=== PATIENT | male | born 1950 | race Caucasian/White ===

== ENCOUNTER 2018-05-10 11:27 | Outpatient (REF) | payer OTHER, SELFPAY ==
[2018-05-10 12:53] LABS: ALT 25 U/L (12-78); AST 20 U/L (15-37); Albumin 3.7 g/dL (3.4-5.0); Alkaline Phosphatase 96 U/L (46-116); Anion Gap 5.7 mmol/L (3-11); BUN 16 mg/dL (7-18); CO2 30.3 mmol/L (21.0-32.0); CREATININE 1.22 mg/dL (0.70-1.30); Calcium 8.8 mg/dL (8.5-10.1); Chloride 101 mmol/L (98-107); Cholesterol 164 mg/dL (50-200); Estimated GFR 59.62 (mL/min/1.73m2); Glucose 103 mg/dL (70-100); HDL Cholesterol 55 mg/dL (40-60); LDL CHOLESTEROL 94 mg/dL (<100); Potassium 4.2 mmol/L (3.5-5.1); Sodium 137 mmol/L (136-145); Total Protein 7.5 g/dL (6.4-8.2); Triglyceride 136 mg/dL (30-150)
== END 2018-05-10 11:47 ==
LOC: NCHCN 11:27
PROVIDERS: PCP Family Medicine; Visit Provider Family Medicine
DX: R78.0 Finding of alcohol in blood (principal); I10 Essential (primary) hypertension
CPT/HCPCS: 80053; 80061; 83721

== ENCOUNTER → 2018-06-01 13:03 | Outpatient (BNVA) | payer OTHER, SELFPAY | PROVIDERS: Visit Provider Psychiatry & Neurology Neurology | DX: G43.009 Migraine without aura, not intractable, without status migrainosus (principal); R41.3 Other amnesia; R51 Headache; J44.9 Chronic obstructive pulmonary disease, unspecified; Z87.891 Personal history of nicotine dependence; I10 Essential (primary) hypertension | CPT/HCPCS: 99213 ==

== ENCOUNTER 2018-06-29 16:52 | Outpatient (REF) | payer OTHER, SELFPAY | END 2018-06-29 17:12 | LOC: NCHCN 16:52 | PROVIDERS: PCP Family Medicine; Visit Provider Nurse Practitioner | DX: L02.511 Cutaneous abscess of right hand (principal) | CPT/HCPCS: 87077; 87070; 87186; 87205 ==

== ENCOUNTER 2018-11-20 10:46 | Outpatient (REF) | payer OTHER, SELFPAY ==
[2018-11-20 14:05] LABS: HCT 46.3 % (40.0-50.0); HGB 14.9 g/dL (13.5-17.5); Mean Corp. HGB Concentration 32.2 g/dL (32.0-36.0); Mean Corpuscular Hemoglobin 28.4 pg (27.0-33.0); Mean Corpuscular Volume 88.4 fL (80-95); Mean Platelet Volume 10.4 fL (8.0-11.0); Platelet Count 229 x1000/uL (130-400); RBC 5.24 m/cumm (4.50-6.00); RBC Distribution Width 14.1 % (11.8-14.1); White Blood Cell Count 6.32 k/cumm (4.4-10.8)
[2018-11-20 15:01] LABS: ALT 38 U/L (12-78); AST 29 U/L (15-37); Albumin 3.8 g/dL (3.4-5.0); Alkaline Phosphatase 87 U/L (46-116); Anion Gap 8.6 mmol/L (3-11); BUN 15 mg/dL (7-18); Bilirubin, Total 0.7 mg/dL (0.2-1.0); CO2 28.4 mmol/L (21.0-32.0); CREATININE 1.36 mg/dL (0.70-1.30); Chloride 101 mmol/L (98-107); Estimated GFR 52.43 (mL/min/1.73m2); Glucose 103 mg/dL (70-100); NT-proBNP 17 pg/mL; Potassium 4.4 mmol/L (3.5-5.1); Sodium 138 mmol/L (136-145); Total Protein 7.7 g/dL (6.4-8.2)
[2018-11-20 15:22] LABS: Cholesterol 171 mg/dL (50-200); HDL Cholesterol 56 mg/dL (40-60); LDL CHOLESTEROL 96 mg/dL (<100); Triglyceride 107 mg/dL (30-150)
== END 2018-11-20 11:06 ==
LOC: NCHCN 10:46
PROVIDERS: PCP Family Medicine; Visit Provider Family Medicine
DX: I35.0 Nonrheumatic aortic (valve) stenosis (principal); E78.00 Pure hypercholesterolemia, unspecified; I10 Essential (primary) hypertension
CPT/HCPCS: 80053; 80061; 83721; 84153; 85027; 83880

== ENCOUNTER 2018-11-30 08:34 | Outpatient (CLI) | payer OTHER, SELFPAY ==
--- NOTE | 2018-11-30 15:00 | DI.US_ITS ---
SYMPTOMS/DIAGNOSIS: AORTIC STENOSIS, I35.0, CAROTID BRUIT, R09.89 CAROTID ULTRASOUND: Routine examination was performed. On the right there is mild calcific plaque seen in the carotid bulb and mild intimal thickening seen in the mid and distal common carotid artery. No hemodynamically significant velocity elevations are present. The right vertebral artery is antegrade. On the left there is mild calcific plaque seen in the left carotid bulb and mild intimal thickening in the common carotid artery distally. There are no hemodynamically significant velocity elevations seen on the left. The left vertebral artery is antegrade. IMPRESSION: No evidence of hemodynamically significant cervical carotid artery stenosis.
== END 2018-11-30 08:54 ==
PROVIDERS: PCP Family Medicine; Visit Provider Family Medicine
DX: I35.0 Nonrheumatic aortic (valve) stenosis (principal); R09.89 Other specified symptoms and signs involving the circulatory and respiratory systems
CPT/HCPCS: 93880

== ENCOUNTER 2019-02-14 00:13 | Outpatient (CLI) | payer OTHER, SELFPAY ==
--- NOTE | 2019-02-14 10:30 | MERGE_ITS ---
*[facility]* *[facility]* [address] [place] [address] Date of study: 02/14/2019 Transthoracic Echocardiography M-mode, complete 2D, complete spectral Doppler, and color Doppler *STUDY CONCLUSIONS* Impressions: Severe aortic stenosis. Summary: 1. Left ventricle: The cavity size was normal. There was mild hypertrophy of the septum. Systolic function was normal. The estimated ejection fraction was 55-60%. Wall motion was normal; there were no regional wall motion abnormalities. 2. Aortic valve: Valve mobility was severely restricted. There was severe stenosis. There was trivial regurgitation. Peak velocity (S): 3.9m/sec. Mean gradient (S): 39.3mm Hg. Valve area (VTI): 0.9cm^2. 3. Right ventricle: The cavity size was normal. Wall thickness was normal. Systolic function was normal. Recommendations: A cardiac surgeon should be consulted for aortic valve replacement if symptomatic. *PATIENT PRESENTATION* Height: 182.9cm ((72in) ) S/D Pressure: 130 / 83 Weight: 122.5kg ((269.4lb) ) BSA: 2.54m^2 Test start time: 10:40 AM. Test stop time: 11:30 AM. 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 This study was interpreted by [facility]. Pertinent images and digital data are archived for permanent storage and are available for subsequent review. No prior study was available for comparison. Study status: Routine. Transthoracic echocardiography. M-mode, complete 2D, complete spectral Doppler, and color Doppler. A Transthoracic Echocardiogram was performed. Scanning was performed from the parasternal, apical, subcostal, and suprasternal notch acoustic windows. Images were obtained using an [id number] cardiac ultrasound machine. Image quality was adequate. Study completion: The patient tolerated the procedure well. There were no complications. History: PMH: Aortic stenosis i34.0. *CARDIAC ANATOMY* Left ventricle: The cavity size was normal. There was mild hypertrophy of the septum. Systolic function was normal. The estimated ejection fraction was 55-60%. Wall motion was normal; there were no regional wall motion abnormalities. Diastolic parameters were normal for age. Aortic valve: Probably trileaflet; moderately calcified leaflets. Valve mobility was severely restricted. Doppler: There was severe stenosis. There was trivial regurgitation. VTI ratio of LVOT to aortic valve: 0.24. Valve area (VTI): 0.9cm^2. Indexed valve area (VTI): 0.3cm^2/m^2. Peak velocity ratio of LVOT to aortic valve: 0.22. Valve area (Vmax): 0.8cm^2. Indexed valve area (Vmax): 0.3cm^2/m^2. Mean velocity ratio of LVOT to aortic valve: 0.22. Valve area (Vmean): 0.8cm^2. Indexed valve area (Vmean): 0.3cm^2/m^2. Mean gradient (S): 39.3mm Hg. Peak gradient (S): 62mm Hg. Aorta: Aortic root: The aortic root was normal in size. Ascending aorta: The ascending aorta was normal in size. Mitral valve: Structurally normal valve. Mobility was not restricted. Doppler: Transvalvular velocity was within the normal range. There was no evidence for stenosis. There was no significant regurgitation. Valve area by pressure half-time: 4.1cm^2. Indexed valve area by pressure half-time: 1.6cm^2/m^2. Left atrium: The atrium was normal in size. Right ventricle: The cavity size was normal. Wall thickness was normal. Systolic function was normal. Pulmonic valve: Doppler: Transvalvular velocity was within the normal range. There was no evidence for stenosis. There was no significant regurgitation. Tricuspid valve: Structurally normal valve. Doppler: Transvalvular velocity was within the normal range. There was no evidence for stenosis. There was mild regurgitation. Pulmonary artery: Pulmonary systolic pressure was within the normal range, in the range of 25mm Hg to 30mm Hg. Right atrium: The atrium was normal in size. Pericardium: There was no pericardial effusion. Systemic veins: Inferior vena cava: Not well visualized. The vessel was patent and normal in size. The respirophasic diameter changes were in the normal range (greater than or equal to 50%). Baseline ECG: Normal sinus rhythm. Measurements Left ventricle Value Reference LV ID, ED, PLAX 4.5 cm 3.5 - 6.0 LV ID, ES, PLAX 2.9 cm 2.1 - 4.0 LV PW thickness, ED, PLAX 1.1 cm LV end-diastolic volume, 1-p A2C 76 ml LV ejection fraction, 1-p A2C 55 % LV end-diastolic volume, 1-p A4C 93 ml LV ejection fraction, 1-p A4C 55 % LV e', lateral 0.086 m/sec LV E/e', lateral 8 LV e', medial 0.079 m/sec LV E/e', medial 9 LV e', average 0.082 m/sec LV E/e', average 8 Ventricular septum Value Reference IVS thickness, ED, PLAX 1.3 cm LVOT Value Reference LVOT ID, A-P 2.1 cm LVOT area 3.6 cm^2 LVOT peak velocity, S 0.88 m/sec LVOT mean velocity, S 0.66 m/sec LVOT VTI, S 20.2 cm LVOT peak gradient, S 3.1 mm Hg LVOT mean gradient, S 1.9 mm Hg Stroke volume (SV), LVOT DP 73 ml Stroke index (SV/bsa), LVOT DP 29 ml/m^2 Aortic valve Value Reference Aortic valve peak velocity, S 3.9 m/sec Aortic valve mean velocity, S 2.97 m/sec Aortic valve VTI, S 84.0 cm Aortic mean gradient, S 39.3 mm Hg Aortic peak gradient, S 62 mm Hg VTI ratio, LVOT/AV 0.24 Aortic valve area, VTI 0.9 cm^2 Velocity ratio, peak, LVOT/AV 0.22 Aortic valve area, peak velocity 0.8 cm^2 Velocity ratio, mean, LVOT/AV 0.22 Aortic valve area, mean velocity 0.8 cm^2 Aortic valve area/bsa, mean velocity 0.3 cm^2/m^2 Aorta Value Reference Aortic root ID, ED 3.6 cm Ascending aorta ID, A-P, S 3.4 cm Left atrium Value Reference LA ID, A-P, ES 3.5 cm LA ID/bsa, A-P 1.4 cm/m^2 <=2.2 LA area, ES, A4C 19.2 cm^2 8.8 - 23.4 LA volume/bsa, ES, 1-p A4C 27 ml/m^2 LA/aortic root ratio 0.98 Mitral valve Value Reference Mitral E-wave peak velocity 0.68 m/sec Mitral A-wave peak velocity 0.69 m/sec Mitral deceleration time 184 ms 150 - 230 Mitral pressure half-time 53 ms Mitral E/A ratio, peak 0.98 Mitral valve area, PHT, DP 4.1 cm^2 Tricuspid valve Value Reference Tricuspid regurg peak velocity 2.4 m/sec Tricuspid peak RV-RA gradient 23.6 mm Hg Right atrium Value Reference RA area, ES, A4C 18 cm^2 8.3 - 19.5 Legend: (L) and (H) priscilla values outside specified reference range. I have personally reviewed the images and have reviewed and edited the reported findings. Electronically signed by Malcolm Adorno 02/14/2019 12:37
== END 2019-02-14 00:33 ==
PROVIDERS: PCP Family Medicine; Visit Provider Family Medicine
DX: I35.0 Nonrheumatic aortic (valve) stenosis (principal)
CPT/HCPCS: 93306

== ENCOUNTER → 2019-04-04 12:33 | Outpatient (BNVA) | payer OTHER, SELFPAY | PROVIDERS: PCP Family Medicine; Visit Provider Student in an Organized Health Care Education/Training Program | DX: I35.0 Nonrheumatic aortic (valve) stenosis (principal); E78.00 Pure hypercholesterolemia, unspecified; G30.9 Alzheimer's disease, unspecified; F02.80 Dementia in other diseases classified elsewhere, unspecified severity, without behavioral disturbance, psychotic disturbance, mood disturbance, and anxiety; J44.9 Chronic obstructive pulmonary disease, unspecified; Z87.891 Personal history of nicotine dependence | CPT/HCPCS: 99205; 99215 ==

== ENCOUNTER 2019-05-31 11:18 | Outpatient (REF) | payer OTHER, SELFPAY ==
[2019-05-31 18:33] LABS: Hemoglobin A1C 6.4 % (4.5-6.2)
== END 2019-05-31 11:38 ==
LOC: NCHCN 11:18
PROVIDERS: PCP Family Medicine; Visit Provider Family Medicine
DX: R73.9 Hyperglycemia, unspecified (principal)
CPT/HCPCS: 83036

== ENCOUNTER 2019-09-28 13:08 | Outpatient (REF) | payer OTHER, SELFPAY ==
[2019-09-28 20:30] LABS: INR 1.6 (0.9-1.1); Prothrombin Time 16.4 sec (9.3-11.0)
[2019-09-28 20:41] LABS: Anion Gap 9.9 mmol/L (3-11); BUN 20 mg/dL (7-18); CO2 30.1 mmol/L (21.0-32.0); CREATININE 1.16 mg/dL (0.70-1.30); Calcium 8.8 mg/dL (8.5-10.1); Chloride 99 mmol/L (98-107); Glucose 173 mg/dL (74-106); NT-proBNP 245 pg/mL (<300); Potassium 3.7 mmol/L (3.5-5.1); Sodium 139 mmol/L (136-145)
== END 2019-09-28 13:28 ==
LOC: NCHCN 13:08
PROVIDERS: PCP Family Medicine; Visit Provider Family Medicine
DX: I50.9 Heart failure, unspecified (principal)
CPT/HCPCS: 80048; 83880; 85610

== ENCOUNTER 2019-10-24 15:31 | Inpatient (IN) | payer OTHER, MEDICAID, SELFPAY ==
[2019-10-24] VITALS (21 sets, daily range): BP systolic 89–162; BP diastolic 40–115; PULSE 67–80; RESP 13–30; TEMP 36.5–37; O2SAT 90–95
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
--- NOTE | 2019-10-24 15:40 | DI.CT_ITS ---
EXAM: CT HEAD WO CLINICAL HISTORY: facial droop. TECHNIQUE: Imaging Protocol: Axial computed tomography images with coronal and sagittal reformatted images were created and reviewed COMPARISON: CT HEAD/BRAIN W/O CONTRAST from 03/13/2017 FINDINGS: Ventricles and Extra axial spaces: Normal in size and morphology for the patient's age. Hemorrhage: None. Cerebral parenchyma: There is encephalomalacia in the right occipital lobe. There are areas of decre ased attenuation in the white matter consistent with small vessel ischemic disease. Midline shift: None. Brainstem/Cerebellum: Normal. Calvarium: Normal. Visualized Paranasal sinuses/Mastoids: Small fluid level in the left sphenoid sinus. The remaining v isualized paranasal sinuses are clear. IMPRESSION: No acute intracranial process. The findings were discussed with the emergency department on the date of the examination. DATA REPOSITORY: All CT scans at this facility are submitted to the National Radiology Data Registry (NRDR) Dose Index Registry (DIR) with the [employer] (ACR). RADIATION OPTIMIZATION: All CT scans at this facility use at least one of these dose optimization te chniques: automated exposure control; mA and/or kV adjustment per patient size (includes targeted exa ms where dose is matched to clinical indication); or iterative reconstruction.
[2019-10-24 16:05] LABS: Abs Immature Grans 0.01 k/cumm (0.0-0.09); Absolute Basophil Count 0.04 k/cumm (0.0-0.2); Absolute Eosinophil Count 0.21 k/cumm (0.0-0.7); Absolute Lymphocyte Count 1.07 k/cumm (1.2-3.4); Absolute Monocyte Count 0.57 k/cumm (0.11-0.7); Absolute Neutrophil Count 9.95 k/cumm (1.2-6.7); Basophils % 0.3; Eosinophils % 1.8; HCT 42.5 % (40.0-50.0); HGB 13.1 g/dL (13.5-17.5); Immature Grans % 0.1 %; Mean Corp. HGB Concentration 30.8 g/dL (32.0-36.0); Mean Platelet Volume 9.3 fL (8.0-11.0); Monocytes % 4.8; Platelet Count 291 x1000/uL (130-400); RBC 5.25 m/cumm (4.50-6.00); RBC Distribution Width 16.6 % (11.8-14.1); White Blood Cell Count 11.85 k/cumm (4.4-10.8)
[2019-10-24 16:19] LABS: INR 2.6 (0.9-1.1); PTT Activated 33.3 sec (21.0-31.4); Prothrombin Time 25.2 sec (9.3-11.0)
[2019-10-24 16:21] LABS: ALT 26 U/L (16-63); AST 21 U/L (15-37); Albumin 3.5 g/dL (3.4-5.0); Alkaline Phosphatase 100 U/L (46-116); Anion Gap 7.1 mmol/L (3-11); BUN 15 mg/dL (7-18); Bilirubin, Total 0.6 mg/dL (0.2-1.0); CO2 31.9 mmol/L (21.0-32.0); CREATININE 1.25 mg/dL (0.70-1.30); Calcium 8.5 mg/dL (8.5-10.1); Chloride 99 mmol/L (98-107); Estimated GFR 57.61 (mL/min/1.73m2); Glucose 120 mg/dL (74-106); Magnesium 2.1 mg/dL (1.8-2.4); Potassium 4.1 mmol/L (3.5-5.1); Sodium 138 mmol/L (136-145); Total Protein 7.9 g/dL (6.4-8.2)
[2019-10-24 16:22] LABS: Troponin I < 0.05 ng/Ml (<0.06)
--- NOTE | 2019-10-24 17:52 | CMPROGNOTE_ITS ---
- If Service Date Differs Date of service: 10/24/19 Time of Service: 17:52 Care Management Progress Note CM meets with Francois and his at the request of ED provider. reports Francois has bad knees and is in need of knee surgeries. Due to this, he has increasing difficulty walking. Francois ambulates with a walker at home but over the past month, he has been unsteady on his feet and has had frequent falls. Francois was at a rehab in [place] for a period of time after a valve replacement s urgery in August. Francois expresses a desire to return to the [facility] and states his primary care provider's office is already working on getting him readmitted. CM contacts the [facility], patient's PCP's office, and speaks with REJI Caldwell. Paulette confirms that Yajaira, their assurance services manager health care, is working on getting Francois a bed at the facility, but Yajaira is gone for the day and Paulette is unsure where things stand. CM will follow-up with Yajaira in the morning.
[2019-10-24 19:31] LABS: Bilirubin Negative (Negative); Blood Trace-intact (Negative); Clarity Clear (Clear); Glucose Negative (Negative); Ketones Negative (Negative); Leukocyte Esterase Negative (Negative); Nitrite Negative (Negative); Specific Gravity 1.015 (1.005-1.025); Urobilinogen 0.2 EU/dL (Up TO 0.2)
[2019-10-24 19:48] LABS: Bacteria Negative HPF (Negative); Casts Negative LPF (Negative); Crystals Negative HPF (Negative); Epithelial Cells Few HPF (Negative); Mucus Negative (Negative); Other Cells Negative (Negative); WBC 0-2 HPF (0-5)
[2019-10-24 19:49] LABS: C & S Indicated? No
[2019-10-24 20:02] LABS: Troponin I < 0.05 ng/Ml (<0.06)
[2019-10-24] MEDS: Atorvastatin 40 MG TAB PO (21:03)
[2019-10-24] MEDS: Amiodarone 200 MG TAB PO (21:03)
[2019-10-24] MEDS: Amitriptyline 50 MG TAB 100 MG PO (21:13)
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
[2019-10-24] MEDS: Acetaminophen 325 MG TAB PO (23:33)
[2019-10-24 23:56] LABS: Troponin I < 0.05 ng/Ml (<0.06)
[2019-10-25 03:00] VITALS: BP 144/76; PULSE 72; RESP 18; TEMP 36.5; O2SAT 93
[2019-10-25 06:28] LABS: Abs Immature Grans 0.02 k/cumm (0.0-0.09); Absolute Basophil Count 0.05 k/cumm (0.0-0.2); Absolute Eosinophil Count 0.41 k/cumm (0.0-0.7); Absolute Lymphocyte Count 1.65 k/cumm (1.2-3.4); Absolute Monocyte Count 0.65 k/cumm (0.11-0.7); Basophils % 0.7; Eosinophils % 5.5; HCT 40.7 % (40.0-50.0); HGB 12.7 g/dL (13.5-17.5); Immature Grans % 0.3 %; Mean Corp. HGB Concentration 31.2 g/dL (32.0-36.0); Mean Corpuscular Hemoglobin 25.2 pg (27.0-33.0); Mean Corpuscular Volume 80.9 fL (80-95); Mean Platelet Volume 9.1 fL (8.0-11.0); Monocytes % 8.7; Neutrophils % 62.8; Platelet Count 330 x1000/uL (130-400); RBC 5.03 m/cumm (4.50-6.00); RBC Distribution Width 16.9 % (11.8-14.1); White Blood Cell Count 7.51 k/cumm (4.4-10.8)
[2019-10-25 06:29] LABS: Absolute Neutrophil Count 4.72 k/cumm (1.2-6.7)
[2019-10-25 06:33] LABS: Anion Gap 8.5 mmol/L (3-11); BUN 13 mg/dL (7-18); CO2 29.5 mmol/L (21.0-32.0); CREATININE 1.06 mg/dL (0.70-1.30); Calcium 8.6 mg/dL (8.5-10.1); Chloride 102 mmol/L (98-107); Glucose 98 mg/dL (74-106); Potassium 3.7 mmol/L (3.5-5.1); Prothrombin Time 24.1 sec (9.3-11.0); Sodium 140 mmol/L (136-145)
[2019-10-25 06:35] LABS: INR 2.4 (0.9-1.1)
[2019-10-25 06:46] LABS: Calculated LDL 69 mg/dL (<100); Cholesterol 142 mg/dL (<200); HDL Cholesterol 61 mg/dL (40-60); Magnesium 2.1 mg/dL (1.8-2.4); TSH (W/Ref FT4) 2.54 uIU/mL (0.36-3.74); Triglyceride 63 mg/dL (<150)
[2019-10-25 07:01] LABS: Hemoglobin A1C 6.6 % (3.8-5.6)
[2019-10-25 07:56] VITALS: BP 143/76; PULSE 71; RESP 20; TEMP 36.6; O2SAT 95
[2019-10-25] MEDS: Metoprolol CR 100 MG TABCR PO ×2 (08:14→20:18)
[2019-10-25] MEDS: Aspirin 81 MG CHEW PO (08:14)
[2019-10-25] MEDS: amLODIPine 10 MG TAB PO (08:14)
[2019-10-25] MEDS: Tamsulosin 0.4 MG CAPCR PO (08:14)
[2019-10-25] MEDS: Furosemide 20 MG TAB PO (08:15)
[2019-10-25] MEDS: Sertraline 50 MG TAB PO (08:15)
[2019-10-25] MEDS: Amiodarone 200 MG TAB PO ×2 (08:15→20:18)
[2019-10-25] MEDS: Acetaminophen 325 MG TAB PO ×3 (08:15→18:13)
[2019-10-25] MEDS: Potassium Chloride 10 MEQ CAPCR PO (08:16)
[2019-10-25] MEDS: Donepezil 5 MG TAB 10 MG PO (08:16)
[2019-10-25] MEDS: Normal Saline Flush 10 ML SYR IVP (08:19)
[2019-10-25] MEDS: Budesonide/Formoterol 80/4.5 6.9 GM 60 PUFF INH IH ×2 (09:16→20:25)
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
--- NOTE | 2019-10-25 10:42 | W.PM.PROGNOT ---
Date of Service Date of service: 10/25/19 Time of Service: 10:42 Assessment and Plan Assessment and plan (1) Ambulatory dysfunction: Status: Acute Assessment and plan: Consult PT/OT and consult neurology. To ensure that the L facial droop seen in ER is not presentation of a new CVA, will obtain a non-contrast MRI of the brain. Per , at the time of my exam, the patient is not having any new neurological deficits. However, patient's difficulty walking does present a big concern for bleeding as he is on therapeutic anticoagulation. (2) Falls frequently: Status: Acute Assessment and plan: PT/OT on board; current plan is for SNF placement at the time of discharge. (3) Bilateral pulmonary embolism: Status: Acute Assessment and plan: Continue anticoagulation with coumadin. INR is therapeutic. (4) History of CVA (cerebrovascular accident): Status: Acute Assessment and plan: With residual L hemianopsia, LUE/LLE weakness and R-sided facial droop. Visual difficulty and LUE/LLE weakness are likely contributing to the falls, presenting a higher risk for bleeding given the fact bandar the patient is on therapeutic anticoagulation. The CVA was felt to be cardioembolic post CT surgery. As above - obtaining repeat MRI and neurology consult. Continue anticoagulation with coumadin. Plan for subacute rehab on discharge. (5) Hypertension: Status: Chronic Assessment and plan: Continue amlodipine and furosemide for now. Low dose jocelyn-i might be considered especially now with a new diagnosis of diabetes. (6) Paroxysmal atrial fibrillation: Status: Acute Assessment and plan: valvular Afib post CABG/bioprosthetic AVR. Continue anticoagulation. Rate is controlled. (7) Neck pain: Status: Acute Assessment and plan: Obtain xr C-spine; tx with lidocaine patch, cold compresses, prn tylenol for now. PT consulted. (8) Newly diagnosed diabetes: Status: Acute Assessment and plan: A1C of 6.6. Consult diabetes education. On carb consistent diet - monitor accuchecks and offer AC/HS corrective insulin. On discharge, might benefit from addition of metformin. (9) DVT prophylaxis: Status: Acute Assessment and plan: On therapeutic coumadin (10) Discharge planning issues: Status: Acute Assessment and plan: Full code. Palliative care consulted Subjective Subjective Interval history since last seen: Mr Davis complains of neck pain since the fall. He also had a headache this morning - he says he has had it since 1979. Denies dizziness, chest pain, shortness of breath, nausea, numbness/tingling (except in the right thumb which is chronic). Per patient's , his face looks to be at his baseline since the stroke in August. Per , the patient's left-sided weakness is also his baseline since then. Exam Narrative Exam Narrative: General: Very pleasant middle-aged male, A&Ox3, sitting comfortably in a chair with an inclination to the right, LUE/LLE strength 4/5; RUE/RLE strength 5/5 HEENT: EOMI, MMM Heart: RRR Lungs: CTAB Abdomen: sot, nontender, nondistended Extremities: RLE is slightly larger than left; no c/c Objective Objective Clinical Data: Abnormal lab results 10/24/19 10/24/19 10/24/19 Range/Units 15:51 15:51 15:51 WBC 11.85 H (4.4-10.8) k/cumm Hgb 13.1 L (13.5-17.5) g/dL MCH 25.0 L (27.0-33.0) pg MCHC 30.8 L (32.0-36.0) g/dL RDW 16.6 H (11.8-14.1) % Absolute Neutrophils 9.95 H (1.2-6.7) k/cumm Absolute Lymphocytes 1.07 L (1.2-3.4) k/cumm PT 25.2 H D (9.3-11.0) sec INR 2.6 H D (0.9-1.1) APTT 33.3 H (21.0-31.4) sec Glucose 120 H (74-106) mg/dL Hemoglobin A1c (3.8-5.6) % Urine Blood (Negative) Urine RBC (0-2) HPF 10/24/19 10/25/19 10/25/19 Range/Units 19:08 06:12 06:12 WBC (4.4-10.8) k/cumm Hgb 12.7 L (13.5-17.5) g/dL MCH 25.2 L (27.0-33.0) pg MCHC 31.2 L (32.0-36.0) g/dL RDW 16.9 H (11.8-14.1) % Absolute Neutrophils (1.2-6.7) k/cumm Absolute Lymphocytes (1.2-3.4) k/cumm PT (9.3-11.0) sec INR (0.9-1.1) APTT (21.0-31.4) sec Glucose (74-106) mg/dL Hemoglobin A1c 6.6 H (3.8-5.6) % Urine Blood Trace-intact H (Negative) Urine RBC 5-10 H (0-2) HPF 10/25/19 Range/Units 06:12 WBC (4.4-10.8) k/cumm Hgb (13.5-17.5) g/dL MCH (27.0-33.0) pg MCHC (32.0-36.0) g/dL RDW (11.8-14.1) % Absolute Neutrophils (1.2-6.7) k/cumm Absolute Lymphocytes (1.2-3.4) k/cumm PT 24.1 H (9.3-11.0) sec INR 2.4 H (0.9-1.1) APTT (21.0-31.4) sec Glucose (74-106) mg/dL Hemoglobin A1c (3.8-5.6) % Urine Blood (Negative) Urine RBC (0-2) HPF Vital Signs Temperature 36.6 C 10/25/19 07:56 Temperature Source Tympanic 10/25/19 07:56 Pulse 71 10/25/19 07:56 Pulse Rhythm Regular 10/25/19 00:10 Pulse 80 10/24/19 17:20 Respiratory Rate 20 10/25/19 07:56 Respiratory Effort Non-Labored 10/25/19 00:10 Respiratory Depth Normal 10/25/19 00:10 Respiratory Pattern Normal 10/25/19 00:10 Blood Pressure 143/76 H 10/25/19 07:56 Blood Pressure Mean 98 10/24/19 17:01 Blood Pressure Position Supine 10/24/19 15:42 Pulse Oximetry 95 10/25/19 07:56 Oxygen Delivery Method Room Air 10/25/19 07:56 Oxygen Flow Rate 0 10/25/19 07:56 Pain Level 4 10/25/19 08:15 Intake & Output 10/24/19 10/24/19 10/25/19 11:59 23:59 11:59 Intake Total 240 / 240 480 / 480 Output Total 650 / 650 400 / 400 Balance -410 / -410 80 / 80 Weight 124.1 kg 117.5 kg Intake: Oral 240 / 240 480 / 480 Output: Urine 650 / 650 400 / 400 Other: Urine Color Pale Yellow Urine Appearance Clear Urine Odor Normal Normal Comment pt pad in bed dry at this time. Voiding Methods Urinal Urinal Laboratory Results WBC 7.51 k/cumm (4.4-10.8) D 10/25/19 06:12 RBC 5.03 m/cumm (4.50-6.00) 10/25/19 06:12 Hgb 12.7 g/dL (13.5-17.5) L 10/25/19 06:12 Hct 40.7 % (40.0-50.0) 10/25/19 06:12 MCV 80.9 fL (80-95) 10/25/19 06:12 MCH 25.2 pg (27.0-33.0) L 10/25/19 06:12 MCHC 31.2 g/dL (32.0-36.0) L 10/25/19 06:12 RDW 16.9 % (11.8-14.1) H 10/25/19 06:12 Plt Count 330 x1000/uL (130-400) 10/25/19 06:12 MPV 9.1 fL (8.0-11.0) 10/25/19 06:12 Immature Gran % 0.3 % 10/25/19 06:12 Neutrophils % 62.8 10/25/19 06:12 Lymphocytes % 22.0 10/25/19 06:12 Monocytes % 8.7 10/25/19 06:12 Eosinophils % 5.5 10/25/19 06:12 Basophils % 0.7 10/25/19 06:12 Absolute Neutrophils 4.72 k/cumm (1.2-6.7) 10/25/19 06:12 Absolute Lymphocytes 1.65 k/cumm (1.2-3.4) 10/25/19 06:12 Absolute Monocytes 0.65 k/cumm (0.11-0.7) 10/25/19 06:12 Absolute Eosinophils 0.41 k/cumm (0.0-0.7) 10/25/19 06:12 Absolute Basophils 0.05 k/cumm (0.0-0.2) 10/25/19 06:12 PT 24.1 sec (9.3-11.0) H 10/25/19 06:12 INR 2.4 (0.9-1.1) H 10/25/19 06:12 APTT 33.3 sec (21.0-31.4) H 10/24/19 15:51 Sodium 140 mmol/L (136-145) 10/25/19 06:12 Potassium 3.7 mmol/L (3.5-5.1) 10/25/19 06:12 Chloride 102 mmol/L (98-107) 10/25/19 06:12 Carbon Dioxide 29.5 mmol/L (21.0-32.0) 10/25/19 06:12 Anion Gap 8.5 mmol/L (3-11) 10/25/19 06:12 BUN 13 mg/dL (7-18) 10/25/19 06:12 Creatinine 1.06 mg/dL (0.70-1.30) 10/25/19 06:12 Estimated GFR/1.73 m2 >= 60.00 (mL/min/1.73m2) 10/25/19 06:12 Glucose 98 mg/dL (74-106) 10/25/19 06:12 Hemoglobin A1c 6.6 % (3.8-5.6) H 10/25/19 06:12 Calcium 8.6 mg/dL (8.5-10.1) 10/25/19 06:12 Magnesium 2.1 mg/dL (1.8-2.4) 10/25/19 06:12 Total Bilirubin 0.6 mg/dL (0.2-1.0) 10/24/19 15:51 AST 21 U/L (15-37) 10/24/19 15:51 ALT 26 U/L (16-63) 10/24/19 15:51 Alkaline Phosphatase 100 U/L (46-116) 10/24/19 15:51 Troponin I < 0.05 ng/Ml (<0.06) 10/24/19 23:30 Total Protein 7.9 g/dL (6.4-8.2) 10/24/19 15:51 Albumin 3.5 g/dL (3.4-5.0) 10/24/19 15:51 Triglycerides 63 mg/dL (<150) 10/25/19 06:12 Total Cholesterol 142 mg/dL (<200) 10/25/19 06:12 LDL Cholesterol, Calc 69 mg/dL (<100) 10/25/19 06:12 HDL Cholesterol 61 mg/dL (40-60) 10/25/19 06:12 TSH 2.54 uIU/mL (0.36-3.74) 10/25/19 06:12 Urine Color Yellow (Yellow) 10/24/19 19:08 Urine Clarity Clear (Clear) 10/24/19 19:08 Urine pH 7.0 (5-8) 10/24/19 19:08 Ur Specific [place] 1.015 (1.005-1.025) 10/24/19 19:08 Urine Protein Negative mg/dL (Negative) 10/24/19 19:08 Urine Ketones Negative mg/dL (Negative) 10/24/19 19:08 Urine Blood Trace-intact (Negative) H 10/24/19 19:08 Urine Nitrite Negative (Negative) 10/24/19 19:08 Urine Bilirubin Negative (Negative) 10/24/19 19:08 Urine Urobilinogen 0.2 EU/dL (Up TO 0.2) 10/24/19 19:08 Ur Leukocyte Esterase Negative (Negative) 10/24/19 19:08 Urine RBC 5-10 HPF (0-2) H 10/24/19 19:08 Urine WBC 0-2 HPF (0-5) 10/24/19 19:08 Ur Epithelial Cells Few HPF (Negative) 10/24/19 19:08 Urine Crystals Negative HPF (Negative) 10/24/19 19:08 Urine Bacteria Negative HPF (Negative) 10/24/19 19:08 Urine Casts Negative LPF (Negative) 10/24/19 19:08 Urine Mucus Negative (Negative) 10/24/19 19:08 Urine Other Negative (Negative) 10/24/19 19:08 Ur Culture Indicated? No 10/24/19 19:08 Urine Glucose Negative mg/dL (Negative) 10/24/19 19:08
--- NOTE | 2019-10-25 11:09 | DI.RAD_ITS ---
EXAM: XR CERVICAL SPINE COMP 4-5V CLINICAL HISTORY: neck pain TECHNIQUE: 2D digital imaging was performed. COMPARISON: No exams were available for comparison FINDINGS: BONES: No fracture or destructive lesion. Vertebral bodies are unremarkable. DISKS: There is moderate to severe narrowing of the C5-6 disc space which shows endplate osteophytes. There are severe facet joint degenerative changes, greater on the left side in the upper cervical r egion. The neural foramina are not optimally profiled however neural foraminal narrowing is suspecte d bilaterally, greater on the left secondary to facet encroachment. ALIGNMENT: Cervical spinal alignment is within normal limits. The odontoid and atlantoaxial articulat ions are normal. SOFT TISSUE: Normal. The lung apices are clear. Sternal wires are noted. IMPRESSION: Severe degenerative changes of the facet joints. Severe degenerative disc changes at C5-6. DATA REPOSITORY: RADIATION DOSE DELIVERED:
[2019-10-25 11:36] VITALS: BP 120/71; PULSE 72; RESP 22; TEMP 36.8; O2SAT 94
--- NOTE | 2019-10-25 12:22 | DI.MRI_ITS ---
EXAM: MR BRAIN WO CLINICAL HISTORY: question of recurrent CVA, weakness TECHNIQUE: Multiplanar multisequence MRI of the brain was performed. An accelerated protocol was ut ilized due to the patient's inability to hold still. CONTRAST MATERIAL: IV Contrast: None COMPARISON: CT HEAD WO from 10/24/2019 FINDINGS: The exam is limited by patient motion. VENTRICLES AND EXTRA AXIAL SPACES: Moderate symmetric dilatation. HEMORRHAGE: None. CEREBRAL PARENCHYMA: There is an old area of encephalomalacia in the right occipital lobe. There is moderate atrophy. No focus of restricted diffusion to suggest acute infarct. No space-occupying lesi on identified. There are scattered foci of increased signal consistent with small vessel disease. MIDLINE SHIFT: None. BRAINSTEM/CEREBELLUM: Normal. CALVARIUM: Normal.. VISUALIZED PARANASAL SINUSES/MASTOIDS: Clear. The vascular flow voids appear intact. Orbits are unremarkable. IMPRESSION: Old right occipital infarct. Atrophy and ventricular dilatation. No evidence of acute infarct. DATA REPOSITORY:
[2019-10-25] MEDS: Lidocaine 5% Patch 1 PATCH TP (12:53)
--- NOTE | 2019-10-25 13:19 | PT.INTREAT ---
Date of service: 10/25/19 Time of Service: 10:47 PT Notes Visit Reasons: WEAKNESS, FALLS Inpatient Physical Therapy Treatment Note [facility] Date: 10/25/2019 PRECAUTIONS: Standard. Fall. Activity as tolerated. SUBJECTIVE: Pt reports that he is concerned about getting up from the floor and feels that he will need help from another person. OBJECTIVE: IV line in RUE. PAIN: 3/10 in ribs with fall recovery practice, 2/10 with rest after treatment session BED MOBILITY/TRANSFERS Rolling L/R: supervision Supine-sit: supervision Sit-supine: supervision Sit-stand: Set-up assist Stand-sit: Set-up assist Bed-Chair: Set-up assist Chair-bed: Set-up assist GAIT: Pt was able to ambulate 100 feet x 2, full weightbearing, using a front wheeled walker. No rest breaks required. Distant supervision provided by PT and PT student. Reciprocal, step through gait pattern. THERAPEUTIC ACTIVITIES: Steps to Fall Recovery Training on mat table initiated with client 1. Assessing head/neck, B UE, and B LE for pain and awareness of limbs 2. Supine to rolling onto side and Side-lying to long sitting (c/o 3/10 pain in ribs) 3. Long sitting to quadruped with cueing and encouragement, required min A for pelvis 4. Quadruped to kneeling ASSESSMENT: Pt continues to show improvements in ambulation with only a distant supervision provided by the physical therapist. He was able to independently recall the route from his bedroom to the rehabilitation gym and safely negotiate the stewart with his front-wheeled walker. Pt demonstrated good understanding of the fall recovery training and was able to follow multiple step commands for completion of the task. He has some difficulty transitioning from long sitting to quadruped, as well as quadruped to kneeling, and requires minimal assistance, however, should continue to improve with repetition and strengthening. Pt would continue to benefit from skilled physical therapy at this time. PLAN: Continue with established POC. Discharge to home with home health physical therapy for continued independence and fall recovery training in the home setting. Recommend front-wheeled walker for ambulation. TREATMENT CODE/TIME: 03440 x 58 minutes beginning at 10:47 A.M. Temo Castro, SPT Doctor of Physical Therapy Student [facility] Supervision provided by Yesika Solano PT, DPT, CLT [facility], [place]
[2019-10-25 15:30] VITALS: BP 128/78; PULSE 66; RESP 20; TEMP 36.3; O2SAT 95
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
--- NOTE | 2019-10-25 16:34 | PHARADMIT ---
Addendum entered by Anam Arguello III 10/26/19 11:17: Pharmacy Note Subjective Stroke-CVA ruled out. Appears that his falls may be due to his dementia, severe ataxia & left sided weakness. Falls are of concern because he is being anticoagulated (on Warfarin). Palliative care consult. Objective VS-OK INR-2.0 Labs-WNL Assessment Lidoderm Patch ordered for neck pain. Warfarin dose to 3mg (INR-2.0) Plan Plan is to return home with services vs a sort rehab stay Original Note: Admission Pharmacy Clinical Review weakness, falls Code Status Full Code Current Weight 117.5 kg Renally Cleared and Narrow Therapeutic Index Meds Crcl ~74 mL/min current meds okay QTc Value / Action Taken QTc 412 BP Control, Fever BP 128/78 afebrile Electrolytes reviewed within normal limits DVT Prophylaxis pt is on warfarin Opiate Usage / Scheduled Bowel Regimen Ordered no/prn Plt/SCr for Heparin / Enoxaparin plt 330 SCr 1.06 INR for Warfarin INR 2.4 H/H stable, WBC/Bands h/h 12.7/40.7 wbc 7.51 Antibiotic appropriateness none Cultures and Sensitivities none Surgical ABX d/c within 24 hr n/a DM control / Insulin Dosing BG 98 none Heart Failure (Check EF%) (AYO's, B-Block, Diuretics) amlodipine, furosemide, metoprolol IV to PO Switch n/a Home Meds Reviewed -amitriptyline may enhance the ulcerogenic effect of potassium -amiodarone may enhance the anticoagulant effect of warfarin -aspirin may enhance the anticoagulant effect of warfarin Home Meds Not Ordered albuterol, benzonatate, cyanocobalamin Comments neuro consult today brain MRI ordered
[2019-10-25] MEDS: Insulin Aspart 300 UNITS/3 ML PEN SC (17:16)
--- NOTE | 2019-10-25 18:28 | NUR.NOTE ---
Nursing Note: pt room changed as recommended by MD to aid with having pt good eye towards door, for ease. Also pt is closer to the nursing station which is an advantage since at night pt can become more confused. Moved to room 209. Pt accepting of move. Bed alarm on for safety and belongings and hydration bedside.
[2019-10-25 20:19] VITALS: BP 147/78; PULSE 74; RESP 18; TEMP 36.6; O2SAT 94
[2019-10-25] MEDS: Atorvastatin 40 MG TAB PO (20:19)
[2019-10-25] MEDS: Amitriptyline 50 MG TAB 100 MG PO (21:29)
[2019-10-25] MEDS: Lidocaine Patch Removal 1 EACH TP (21:29)
[2019-10-25 22:50] VITALS: BP 149/76; PULSE 69; RESP 18; TEMP 36.7; O2SAT 92
[2019-10-26] MEDS: Acetaminophen 325 MG TAB PO ×2 (04:07→09:50)
[2019-10-26 06:44] LABS: Prothrombin Time 19.5 sec (9.3-11.0)
[2019-10-26 06:50] LABS: Anion Gap 9.4 mmol/L (3-11); BUN 14 mg/dL (7-18); CO2 28.6 mmol/L (21.0-32.0); CREATININE 1.11 mg/dL (0.70-1.30); Calcium 9.1 mg/dL (8.5-10.1); Chloride 100 mmol/L (98-107); Glucose 102 mg/dL (74-106); Magnesium 2.1 mg/dL (1.8-2.4); Potassium 4.2 mmol/L (3.5-5.1); Sodium 138 mmol/L (136-145)
[2019-10-26 07:10] VITALS: BP 131/75; PULSE 60; RESP 18; TEMP 36.4; O2SAT 93
[2019-10-26 07:13] VITALS: PULSE 65
[2019-10-26] MEDS: Potassium Chloride 10 MEQ CAPCR PO (08:37)
[2019-10-26] MEDS: Furosemide 20 MG TAB PO (08:37)
[2019-10-26] MEDS: Amiodarone 200 MG TAB PO ×2 (08:38→19:23)
[2019-10-26] MEDS: Aspirin 81 MG CHEW PO (08:38)
[2019-10-26] MEDS: amLODIPine 10 MG TAB PO (08:38)
[2019-10-26] MEDS: Donepezil 5 MG TAB 10 MG PO (08:38)
[2019-10-26] MEDS: Sertraline 50 MG TAB PO (08:38)
[2019-10-26] MEDS: Metoprolol CR 100 MG TABCR PO ×2 (08:38→19:23)
[2019-10-26] MEDS: Tamsulosin 0.4 MG CAPCR PO (08:41)
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
--- NOTE | 2019-10-26 09:21 | PDOC.CMIN ---
Care Management Initial Assess REASON FOR HOSPITALIZATION:: Francois lives in [place] with his , Angie. Their daughter, Carmen lives nearby. They are both supportive of Francois. 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 Francois has been having difficulty lately, and he has needed more support. He has alzheimer's dementia which has been effecting his ADL's. PAST MEDICAL HISTORY/PAST SURGICAL HISTORY:: Vascular dementia, left homonymous hemianopsia, diabetes, dvt prophylaxis, neck pain, paroxysmal atrial fibrillation, hx of CVA, bilateral PE, ambulatory dysfunction, frequent falls, onychomadesis of toenail, BPH, mild cognitive impairment, migraine headache, carotid bruit, cough, CAD, CHF, alzheimer's dementia, recurrent syncope, vitamin B12 deficiency, erectile dysfunction, depression, hypercholesterolemia, chronic leg pain, COPD, bilateral carpal tunnel syndrome, hypertension, vitamin D deficiency, migraine without aura, memory loss, hydrocephalus ex vacuo, chronic headaches PREVIOUS FUNCTIONAL STATUS/SOCIAL/FAMILY SUPPORTS:: Francois resides in [place] with his , Angie. Their daughter, Carmen lives nearby. They are both supportive of Francois. 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 Francois has been having difficulty lately, and he has needed more support. He has alzheimer's dementia which has been effecting his ADL's. Has patient been provided with information about the portal?: No Did the patient sign up for the portal?: No CODE STATUS:: Full Code INSURANCE COVERAGE / FINANCIAL ISSUES:: [facility] CURRENT HOME/COMMUNITY SERVICES/EQUIPMENT:: Francois currently has a FWW, a cane, a transition chair and grab bars at home. PRIMARY CARE PHYSICIAN:: Hoa Banegas. POTENTIAL DISCHARGE NEEDS:: Francois may need placement in a rehab facility prior to returning home. PATIENT/FAMILY EDUCATION NEEDS:: Review discharge instructions regarding activity levels and medications, discussion of goals of care. ANTICIPATED BARRIERS TO DISCHARGE:: Francois's mobility and cognitive functioning may be a barrier to him returning home at this time. He may benefit from a SNF for a short rehab stay. TRANSPORTATION:: Anticipate he will transport via private vehicle driven by family. PLAN:: Anticipate Francois will return home with additional support vs go to a rehab facility for a short, skilled stay prior to returning home. He will transition once he is medically cleared. He will transport via private vehicle vs w/c van, to be determined by disposition. He will follow up with his PCP, as recommended. CM will continue to follow and support discharge planning considerations.
[2019-10-26] MEDS: Budesonide/Formoterol 80/4.5 6.9 GM 60 PUFF INH IH ×2 (09:22→19:23)
--- NOTE | 2019-10-26 09:48 | PGE_ITS ---
Date of Service Date of service: 10/26/19 Time of Service: 09:48 Assessment and Plan Assessment and plan (1) Ambulatory dysfunction: Status: Acute Assessment and plan: Consult PT/OT and consult neurology. No evidence of new CVA on non-contrast MRI of the brain. No new recommendations from neurology There are no new neurological deficits. The patient's difficulty walking does present a big concern for bleeding as he is on therapeutic anticoagulation. (2) Bilateral pulmonary embolism: Status: Acute Assessment and plan: Continue anticoagulation with coumadin. INR is therapeutic, follow and adjust as needed (3) History of CVA (cerebrovascular accident): Status: Acute Assessment and plan: With residual L hemianopsia, LUE/LLE weakness and R- sided facial droop. Visual difficulty and LUE/LLE weakness are likely contributing to the falls, presenting a higher risk for bleeding given the fact bandar the patient is on therapeutic anticoagulation. The CVA was felt to be cardioembolic post CT surgery. As above - obtaining repeat MRI and neurology consult. Continue anticoagulation with coumadin. Plan for subacute rehab on discharge. (4) Hypertension: Status: Chronic Assessment and plan: Continue amlodipine and furosemide for now. Low dose jocelyn-i might be considered especially now with a new diagnosis of diabetes (5) Paroxysmal atrial fibrillation: Status: Acute Assessment and plan: valvular Afib post CABG/bioprosthetic AVR. Continue anticoagulation. (6) Neck pain: Status: Acute Assessment and plan: tx with lidocaine patch, cold compresses, prn tylenol for now. PT consulted. cspine films (7) Newly diagnosed diabetes: Status: Acute Assessment and plan: A1C of 6.6. Consult diabetes education. On carb consistent diet - monitor accuchecks and offer AC/HS corrective insulin. On discharge, might benefit from addition of metformin. (8) DVT prophylaxis: Status: Acute Assessment and plan: fully anticoagulated on coumadin (9) Discharge planning issues: Status: Acute Assessment and plan: Full code. Palliative care consulted plan is to [facility] on Tuesday for further rehab ilitation for his ambulatory dysfunction, ataxia, left sided weakness. Subjective Subjective Patient reports: no new complaints, feels better, tolerating a regular diet and voiding w/o difficulty Interval history since last seen: patient sitting up in his chair eating lunch, is present. neither offer any new concerns or complaints. He is unable to provide a ROS d/t dementia. It is reported that he has experienced some neck pain. MRI showed severe DJD of c5-c6. He is working with physical therapy and remains with severe ataxia, this combined with confusion and left sided weakness places him at high fall risk. hemodynamically he has been stable. no fevers there have been no behavorial issues. Exam Const General: cooperative, healthy appearing, no acute distress and well developed Nutritional Appearance: average body habitus Orientation: alert, awake and oriented to person [facility] Head: normal to inspection, normocephalic and atraumatic Resp Effort & Inspection: normal respiratory effort Auscultation: clear to auscultation bilaterally Cardio Rate: regular rate Rhythm: regular rhythm GI Inspection: normal to inspection Palpation: soft Auscultation: normal bowel sounds Skin General skin exam: ecchymosis (various bruises, different stages of healing) Neuro General: alert, awake and oriented Patient Orientation: Person (poor historian) Extrem General: normal to inspection (left sided weakness, leaning towards left) Psych Appearance: grossly normal Speech and Movement: speech and movement normal Objective Objective Clinical Data: Abnormal lab results 10/26/19 Range/Units 06:07 PT 19.5 H (9.3-11.0) sec INR 2.0 H (0.9-1.1) Vital Signs Temperature 36.4 C L 10/26/19 07:10 Temperature Source Tympanic 10/26/19 07:10 Pulse 60 10/26/19 07:10 Pulse Rhythm Regular 10/26/19 01:00 Pulse 80 10/24/19 17:20 Respiratory Rate 18 10/26/19 07:10 Respiratory Effort Non-Labored 10/26/19 01:00 Respiratory Depth Normal 10/26/19 01:00 Respiratory Pattern Normal 10/26/19 01:00 Blood Pressure 131/75 10/26/19 07:10 Blood Pressure Mean 98 10/24/19 17:01 Blood Pressure Position Supine 10/24/19 15:42 Pulse Oximetry 93 L 10/26/19 07:10 Oxygen Delivery Method Room Air 10/26/19 07:10 Oxygen Flow Rate 0 10/26/19 07:10 Pain Level 0 10/26/19 07:10 Intake & Output 10/25/19 10/25/19 10/26/19 11:59 23:59 11:59 Intake Total 490 / 970 480 / 970 Output Total 1350 / 2900 1550 / 2900 Balance -860 / -1930 -1070 / -1930 Weight 117.5 kg 117.2 kg Intake: IV Oral 480 / 960 480 / 960 Output: Urine 1350 / 2900 1550 / 2900 Other: Urine Color Yellow Yellow Urine Appearance Clear Clear Clear Urine Odor Normal None Comment denies ill effects Voiding Methods Urinal Urinal Laboratory Results WBC 7.51 k/cumm (4.4-10.8) D 10/25/19 06:12 RBC 5.03 m/cumm (4.50-6.00) 10/25/19 06:12 Hgb 12.7 g/dL (13.5-17.5) L 10/25/19 06:12 Hct 40.7 % (40.0-50.0) 10/25/19 06:12 MCV 80.9 fL (80-95) 10/25/19 06:12 MCH 25.2 pg (27.0-33.0) L 10/25/19 06:12 MCHC 31.2 g/dL (32.0-36.0) L 10/25/19 06:12 RDW 16.9 % (11.8-14.1) H 10/25/19 06:12 Plt Count 330 x1000/uL (130-400) 10/25/19 06:12 MPV 9.1 fL (8.0-11.0) 10/25/19 06:12 Immature Gran % 0.3 % 10/25/19 06:12 Neutrophils % 62.8 10/25/19 06:12 Lymphocytes % 22.0 10/25/19 06:12 Monocytes % 8.7 10/25/19 06:12 Eosinophils % 5.5 10/25/19 06:12 Basophils % 0.7 10/25/19 06:12 Absolute Neutrophils 4.72 k/cumm (1.2-6.7) 10/25/19 06:12 Absolute Lymphocytes 1.65 k/cumm (1.2-3.4) 10/25/19 06:12 Absolute Monocytes 0.65 k/cumm (0.11-0.7) 10/25/19 06:12 Absolute Eosinophils 0.41 k/cumm (0.0-0.7) 10/25/19 06:12 Absolute Basophils 0.05 k/cumm (0.0-0.2) 10/25/19 06:12 PT 19.5 sec (9.3-11.0) H 10/26/19 06:07 INR 2.0 (0.9-1.1) H 10/26/19 06:07 APTT 33.3 sec (21.0-31.4) H 10/24/19 15:51 Sodium 138 mmol/L (136-145) 10/26/19 06:07 Potassium 4.2 mmol/L (3.5-5.1) 10/26/19 06:07 Chloride 100 mmol/L (98-107) 10/26/19 06:07 Carbon Dioxide 28.6 mmol/L (21.0-32.0) 10/26/19 06:07 Anion Gap 9.4 mmol/L (3-11) 10/26/19 06:07 BUN 14 mg/dL (7-18) 10/26/19 06:07 Creatinine 1.11 mg/dL (0.70-1.30) 10/26/19 06:07 Estimated GFR/1.73 m2 >= 60.00 (mL/min/1.73m2) 10/26/19 06:07 Glucose 102 mg/dL (74-106) 10/26/19 06:07 Hemoglobin A1c 6.6 % (3.8-5.6) H 10/25/19 06:12 Calcium 9.1 mg/dL (8.5-10.1) 10/26/19 06:07 Magnesium 2.1 mg/dL (1.8-2.4) 10/26/19 06:07 Total Bilirubin 0.6 mg/dL (0.2-1.0) 10/24/19 15:51 AST 21 U/L (15-37) 10/24/19 15:51 ALT 26 U/L (16-63) 10/24/19 15:51 Alkaline Phosphatase 100 U/L (46-116) 10/24/19 15:51 Troponin I < 0.05 ng/Ml (<0.06) 10/24/19 23:30 Total Protein 7.9 g/dL (6.4-8.2) 10/24/19 15:51 Albumin 3.5 g/dL (3.4-5.0) 10/24/19 15:51 Triglycerides 63 mg/dL (<150) 10/25/19 06:12 Total Cholesterol 142 mg/dL (<200) 10/25/19 06:12 LDL Cholesterol, Calc 69 mg/dL (<100) 10/25/19 06:12 HDL Cholesterol 61 mg/dL (40-60) 10/25/19 06:12 TSH 2.54 uIU/mL (0.36-3.74) 10/25/19 06:12 Urine Color Yellow (Yellow) 10/24/19 19:08 Urine Clarity Clear (Clear) 10/24/19 19:08 Urine pH 7.0 (5-8) 10/24/19 19:08 Ur Specific [place] 1.015 (1.005-1.025) 10/24/19 19:08 Urine Protein Negative mg/dL (Negative) 10/24/19 19:08 Urine Ketones Negative mg/dL (Negative) 10/24/19 19:08 Urine Blood Trace-intact (Negative) H 10/24/19 19:08 Urine Nitrite Negative (Negative) 10/24/19 19:08 Urine Bilirubin Negative (Negative) 10/24/19 19:08 Urine Urobilinogen 0.2 EU/dL (Up TO 0.2) 10/24/19 19:08 Ur Leukocyte Esterase Negative (Negative) 10/24/19 19:08 Urine RBC 5-10 HPF (0-2) H 10/24/19 19:08 Urine WBC 0-2 HPF (0-5) 10/24/19 19:08 Ur Epithelial Cells Few HPF (Negative) 10/24/19 19:08 Urine Crystals Negative HPF (Negative) 10/24/19 19:08 Urine Bacteria Negative HPF (Negative) 10/24/19 19:08 Urine Casts Negative LPF (Negative) 10/24/19 19:08 Urine Mucus Negative (Negative) 10/24/19 19:08 Urine Other Negative (Negative) 10/24/19 19:08 Ur Culture Indicated? No 10/24/19 19:08 Urine Glucose Negative mg/dL (Negative) 10/24/19 19:08
[2019-10-26] MEDS: Lidocaine 5% Patch 1 PATCH TP (09:49)
--- NOTE | 2019-10-26 09:55 | PTTR_ITS ---
Date of service: 10/26/19 Time of Service: 09:57 PT Notes Visit Reasons: WEAKNESS, FALLS 10/26/2019 SUBJECTIVE: Francois stating that he uses a walker at home. He notes frequent falls as of recently due to loss of balance. OBJECTIVE: Pt seated in her recliner. He is agreeable to PT treatment. TRANSFERS Sit to stand: CGA Stand to sit: CGA, verbal cues GAIT Device: FWW Weight bearing: Full Assist: CGA/min A Distance: 15'x2 Deviation: Significant verbal cues for walker safety, 1 sit rest break due to LE fatigue THEREX: Seated LE strengthening exercises performed. See flow sheet. ASSESSMENT: Pt demonstrates decreased mobility and decreased safety awareness with the FWW. He requires max amount of verbal cues to keep is walker closer to him as well as cues for stand to sit transfers. Pt would benefit from continued PT efforts to maximize safety awareness with transfers and gait. PLAN: Continue current POC. Treatment time: 25' [id number], [id number] Lisa Fu, INSTRUCTOR [employer]
--- NOTE | 2019-10-26 10:23 | PDOC.CMPRO ---
Care Management Progress Note S/O: Francois and his Angie met with Dr. Waterman and BREN Sharp of Palliative Care. Francois is requesting support in returning to [facility]. CM called [facility] P#[phone] admissions to discuss Francois's prior stay and inquire as to bed status. [facility] reports that while Francois was a pleasure to have around, his preferred to take him home after his Medicare days were up because Francois was going to have a $176/day co-pay as he does not have supplemental coverage. Also reported that [facility] is taking eight patients from [facility] and does not have anticipated bed availability for a few months. Francois discharged on 09/05/19 so he will not be eligible for another skilled stay until 11/06/19. If he enters SNF now, under his current rehab stay, he will have a daily co-pay as his MCR will only cover 80%. CM provided Financial Assistance application to support offsetting costs. Angie reports [facility] senior [facility] Medicaid is currently pending. She advises Juanis Azul at [facility] is helping her and Francois navigate the system, though she is still collecting needed documents requested by Juanis. With [facility] increased service supports and additional for Angie and Francois. A: 69 year old male admitted to [facility] 10/25/2019 for Weakness, Falls P: Anticipate Francois will transition to [facility] when ready per MD. CM will continue to follow and support discharge planning considerations.
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
[2019-10-26 11:30] VITALS: BP 140/69; PULSE 66; RESP 18; TEMP 36.8; O2SAT 95
--- NOTE | 2019-10-26 11:56 | W.INDIABCONS ---
Date of service: 10/26/19 Time of Service: 11:56 Diabetes Inpatient Consult DESCRIPTION/ASSESSMENT: Appreciate consult for newly diagnosed type 2 diabetes in this 69 year old here with falls and dementia symptoms recently residing in skilled nursing care setting. Blood sugars here 104-161 eating 30-60grams carbohydrate [id number]% of offered meal now on sensitive insulin correction. BMI 35 A1c 6.6 INTERVENTION: No intervention warranted at this time given his co-morbidities and excellent glycemic control here. PLAN: Will attempt to visit his support team re: general food guide for diabetes, if desired Will follow blood sugars Time Spent in Nutritional Counseling and Treatment: 0 minutes face to face
--- NOTE | 2019-10-26 13:39 | W.NUTCONSULT ---
Date of service: 10/26/19 Time of Service: 13:39 Nutritional Consult ASSESSMENT: 69 year old male admitted with ambulatory dysfunction. PMH: Alzhiemers Dx, COPD and new diagnosed NIDDM. A1C= 6.6%. lipids wnl. Following Diabetic Diet with adequate intake. Not considered at nutritional risk at this time. DM consult pending. MONITORING AND EVALUATION: weight, po intake, labs Time Spent in Nutritional Counseling and Treatment: 0 time spent face to face
--- NOTE | 2019-10-26 13:44 | PTTR_ITS ---
Date of service: 10/26/19 Time of Service: 13:44 PT Notes Visit Reasons: WEAKNESS, FALLS 10/26/2019 SUBJECTIVE: Francois states he is doing okay this afternoon. He does have some neck discomfort. OBJECTIVE: Seated in his chair talking with his . Agreeable to PT treatment. TRANSFES Sit to stand: CGA Stand to sit: CGA GAIT Device: FWW Weight bearing: Full Assist: CGA Distance: 60', wheel chair follow Deviation: Asymmetrical gait, decreased stance on the left ASSESSMENT: Pt fatigued this afternoon and did not want to walk any farther distance. Pt's states that he is walking like he usually does at home. He requires cues for walker management and keeping the walker close to him. Pt is pleasantly confused this afternoon. PLAN: Continue current POC. Treatment time: Lisa Fu, BLUEPRINT PROCESSOR
[2019-10-26 15:44] VITALS: BP 131/82; PULSE 68; RESP 18; TEMP 36.7; O2SAT 93
[2019-10-26 16:04] VITALS: PULSE 77
[2019-10-26] MEDS: Atorvastatin 40 MG TAB PO (19:23)
[2019-10-26] MEDS: Amitriptyline 50 MG TAB 100 MG PO (21:35)
[2019-10-26] MEDS: Insulin Aspart 300 UNITS/3 ML PEN SC (21:36)
[2019-10-26 22:46] VITALS: BP 142/79; PULSE 70; RESP 18; TEMP 36.3; O2SAT 92
[2019-10-27] VITALS (22 sets, daily range): BP systolic 105–158; BP diastolic 64–81; PULSE 62–75; RESP 18–24; TEMP 35.9–37.2; O2SAT 91–95
--- NOTE | 2019-10-27 | DI.CT_ITS ---
EXAM: CT HEAD CERVICAL SPINE WO CLINICAL HISTORY: Headache, status post fall, chronic anticoagulatio TECHNIQUE: COMPARISON: CT HEAD WO from 10/24/2019 FINDINGS: Noncontrast cranial CT was performed. Moderate generalized cerebral atrophy and old right occipital infarct again noted. No evidence of acute intracranial hemorrhage, mass effect, or midline shift. O rbital and temporal bone structures appear intact. No gross interval change from prior CT of 020. CT examination cervical spine was performed without contrast administration. Prevertebral soft tissu es appear intact. Tracheolaryngeal structures unremarkable as visualized. No cervical mass or adeno sebastien. Marked degenerative changes of the cervical spine noted most prominent at C5-6 where there is loss of vertebral disc height and moderate endplate hypertrophic changes. Multilevel facet hypertro phic degenerative changes also noted. No evidence of acute cervical spine fracture or dislocation. IMPRESSION: No evidence of acute intracranial injury or hemorrhage. No evidence of acute cervical spine injury. Marked degenerative changes noted.
[2019-10-27] MEDS: Acetaminophen 325 MG TAB PO ×3 (01:41→10:16)
[2019-10-27 07:09] LABS: INR 1.6 (0.9-1.1); Prothrombin Time 16.1 sec (9.3-11.0)
[2019-10-27] MEDS: Donepezil 5 MG TAB 10 MG PO (08:56)
[2019-10-27] MEDS: Budesonide/Formoterol 80/4.5 6.9 GM 60 PUFF INH IH ×2 (08:56→20:03)
[2019-10-27] MEDS: Amiodarone 200 MG TAB PO ×2 (08:56→19:54)
[2019-10-27] MEDS: Metoprolol CR 100 MG TABCR PO ×2 (08:56→19:54)
[2019-10-27] MEDS: Potassium Chloride 10 MEQ CAPCR PO (08:57)
[2019-10-27] MEDS: Tamsulosin 0.4 MG CAPCR PO (08:57)
[2019-10-27] MEDS: amLODIPine 10 MG TAB PO (08:57)
[2019-10-27] MEDS: Furosemide 20 MG TAB PO (08:57)
[2019-10-27] MEDS: Sertraline 50 MG TAB PO (08:57)
[2019-10-27] MEDS: Aspirin 81 MG CHEW PO (08:57)
--- NOTE | 2019-10-27 09:40 | DI.VRAD_ITS ---
PROCEDURE INFORMATION: Exam: CT Head Without Contrast Exam date and time: 10/27/2019 9:11 AM Age: 69 years old Clinical indication: Pain; Headache; Other: Falls, on chronic anticoagulants TECHNIQUE: Imaging protocol: Computed tomography of the head without contrast. COMPARISON: CT HEAD WO 10/24/2019 3:40 PM FINDINGS: Brain: Encephalomalacia within the right occipital lobe is unchanged. Mild prominence of the cerebral sulci, unchanged. Decreased attenuation within the white matter tracts of both cerebral hemispheres is nonspecific but typically seen with small vessel disease/chronic white matter ischemic changes of aging. No intracranial hemorrhage or mass effect. Ventricles: Ventriculomegaly, unchanged. Bones/joints: Unremarkable. No acute fracture. Sinuses: Visualized sinuses are unremarkable. No fluid levels. Mastoid air cells: Visualized mastoid air cells are well aerated. Soft tissues: Unremarkable. IMPRESSION: No acute intracranial abnormality. PROCEDURE INFORMATION: Exam: CT Cervical Spine Without Contrast Exam date and time: 10/27/2019 9:11 AM Age: 69 years old Clinical indication: Pain; Headache; Other: Falls, on chronic anticoagulants TECHNIQUE: Imaging protocol: Computed tomography images of the cervical spine without contrast. COMPARISON: CT HEAD WO 10/24/2019 3:40 PM FINDINGS: Vertebrae: No fracture or subluxation. Discs/Spinal canal/Neural foramina: Degenerative disc disease and facet arthrosis is present throughout the cervical spine. Neural foraminal bony stenosis is most severe at C5-C6 bilaterally and C3-C4 on the left. No severe bony spinal stenosis. No severe bony spinal stenosis. Soft tissues: Unremarkable. Lungs: Lung apices are not visualized. IMPRESSION: 1. No fracture or subluxation. 2. Degenerative spondylosis of the cervical spine. Dictated and Authenticated by: Alireza Javier MD. Ordering:[facility] Geovanna Oakley MD
[2019-10-27] MEDS: Lidocaine 5% Patch 1 PATCH TP (10:16)
[2019-10-27 11:35] LABS: HCT 41.6 % (40.0-50.0); HGB 12.9 g/dL (13.5-17.5); Mean Corpuscular Volume 80.6 fL (80-95); Platelet Count 336 x1000/uL (130-400); RBC 5.16 m/cumm (4.50-6.00); RBC Distribution Width 16.9 % (11.8-14.1); White Blood Cell Count 8.14 k/cumm (4.4-10.8)
[2019-10-27] MEDS: Enoxaparin 120 MG/0.8 ML SYR SC ×2 (11:49→21:37)
--- NOTE | 2019-10-27 12:03 | PT.INTREAT ---
Date of service: 10/27/19 Time of Service: 11:30 PT Notes Visit Reasons: WEAKNESS, FALLS Inpatient Physical Therapy Treatment Note [facility] Date: 10/27/19 PRECAUTIONS:Falls, standard and activity as tolerated SUBJECTIVE: Stated he is a little sore in the hip regions today, but not sure if the fall last night made it any worse than usual. OBJECTIVE: PAIN: Reported sore in the hips, but not bad. Reporting a ORELLANA to nursing staff. BED MOBILITY/TRANSFERS Up in recliner chair with nursing. Sit-stand: CGA Stand-sit: CGA GAIT Assistive Device: FWW Weight bearing: Full Assist: CGA of 2 Distance: 8ft chair to toilet and 40ft out to nurses station and back to chair. Deviation: No seated break with ambulation today. Continues to drag left foot with toes pointed out when ambulating. Repeated verbal cueing to keep walker closer to him. I did have to physically pull walk back toward patient several times while walking due to him pushing it out away from him too far. THEREX: Performed ankle pumps, LAQs, seated hip abduction and adduction, as well as manually resisted hip adduction squeeze. See flow sheet for details. ASSESSMENT: Ambulation continues to be very unsafe due to ataxic gait pattern and patient not keeping walker under him. PLAN: Continue with current plan of care, advancing as able to tolerate for improved ADL function. TREATMENT CODE/TIME: 07080 x 1 (20'), 11:30 to 11:50
--- NOTE | 2019-10-27 12:23 | W.PM.PROGNOT ---
Date of Service Date of service: 10/27/19 Time of Service: 12:24 Assessment and Plan Assessment and plan (1) Mixed Alzheimer's and vascular dementia: Start date: 10/27/19 Start time: 12:27 Status: Chronic Assessment and plan: Moderate to advanced. Probably still has more than a year but less than 5 years to live. Not yet hospice eligible. Best scenario for him is to be socially engage, physically active, control his BP. (2) Ataxia: Start date: 10/27/19 Start time: 12:27 Status: Chronic Assessment and plan: Not safe to walk unassisted at this time. Unsure if he will be able to in the future. Continue PT/OT (3) Falls frequently: Start date: 10/27/19 Start time: 12:27 Status: Chronic Assessment and plan: Fall last night, CT head and neck unchanged from previous CT. Little insight into safety needs. Thinks he can do more than he can. Ambulation unsafe per PT as patient unable to keep walker under him. Will likely need intermodal dispatcher placement. (4) Hypertension: Start date: 10/27/19 Start time: 12:28 Status: Chronic Assessment and plan: Continue amlodipine and furosemide for now. Normotensive BP Low dose jocelyn-i might be considered especially now with a new diagnosis of diabetes (5) Bilateral pulmonary embolism: Start date: 10/27/19 Start time: 12:30 Status: Acute Assessment and plan: Continue anticoagulation with coumadin. INR is not theraputic add enoxaparin 1m/kg until theraputic, follow and adjust as needed, (6) History of CVA (cerebrovascular accident): Start date: 10/27/19 Start time: 12:35 Status: Acute Assessment and plan: With residual L hemianopsia, LUE/LLE weakness and R-sided facial droop. Visual difficulty and LUE/LLE weakness are likely contributing to the falls, presenting a higher risk for bleeding given the fact that the patient is on therapeutic anticoagulation. The CVA was felt to be cardioembolic post CT surgery. As above - obtaining repeat MRI and neurology consult. Continue anticoagulation with coumadin. Plan for subacute rehab on discharge. (7) Paroxysmal atrial fibrillation: Start date: 10/27/19 Start time: 12:36 Status: Acute Assessment and plan: valvular Afib post CABG/bioprosthetic AVR. Continue anticoagulation. (8) Neck pain: Start date: 10/27/19 Start time: 12:36 Status: Acute Assessment and plan: Continue tx with lidocaine patch, cold compresses, prn tylenol for now. (9) DVT prophylaxis: Start date: 10/27/19 Status: Acute Assessment and plan: Coumadin (10) Discharge planning issues: Start date: 10/27/19 Start time: 12:36 Status: Acute Assessment and plan: Full code. plan is to discharge to [facility] care here on Tuesday for further rehabilitation for his ambulatory dysfunction, ataxia, left sided weakness. (11) Newly diagnosed diabetes: Start date: 10/27/19 Start time: 12:37 Status: Acute Assessment and plan: A1C of 6.6. Consult diabetes education. On carb consistent diet - monitor accuchecks and offer AC/HS corrective insulin. On discharge, might benefit from addition of metformin. Above case discussed with Dr. rAt who is in agreement. Subjective Subjective Interval history since last seen: Fall last night. Overnight provider notified. No signs of head injury. Unclear if patient hit head, he endorses neck and head pain. CT scan unchanged from previous. Otherwise no new complaints. Exam Narrative Exam Narrative: General: Very pleasant middle-aged male, A&Ox3, sitting comfortably in a chair with an inclination to the right, LUE/LLE strength 4/5; RUE/RLE strength 5/5 HEENT: EOMI, MMM Heart: RRR Lungs: CTAB Abdomen: soft, nontender, nondistended Extremities: RLE is slightly larger than left; no c/c Objective Objective Clinical Data: Abnormal lab results 10/27/19 10/27/19 Range/Units 06:30 11:25 Hgb 12.9 L (13.5-17.5) g/dL MCH 25.0 L (27.0-33.0) pg MCHC 31.0 L (32.0-36.0) g/dL RDW 16.9 H (11.8-14.1) % PT 16.1 H (9.3-11.0) sec INR 1.6 H (0.9-1.1) Vital Signs Temperature 36.7 C 10/27/19 10:20 Temperature Source Temporal Artery Scan 10/27/19 10:20 Pulse 63 10/27/19 10:20 Pulse Rhythm Regular 10/27/19 10:01 Pulse 80 10/24/19 17:20 Respiratory Rate 20 10/27/19 10:20 Respiratory Effort Non-Labored 10/27/19 10:01 Respiratory Depth Normal 10/27/19 10:01 Respiratory Pattern Normal 10/27/19 10:01 Blood Pressure 114/66 10/27/19 10:20 Blood Pressure Mean 98 10/24/19 17:01 Blood Pressure Position Supine 10/24/19 15:42 Pulse Oximetry 93 L 10/27/19 10:20 Oxygen Delivery Method Room Air 10/27/19 10:20 Oxygen Flow Rate 0 10/27/19 10:20 Pain Level 5 10/27/19 10:16 Intake & Output 10/26/19 10/27/19 10/27/19 23:59 11:59 23:59 Intake Total 440 / 800 590 / 590 Output Total 550 / 550 1200 / 1200 Balance -110 / 250 -610 / -610 Weight 117.6 kg Intake: Oral 440 / 800 590 / 590 Output: Urine 550 / 550 1200 / 1200 Other: Urine Color Yellow Yellow Urine Appearance Clear Clear Urine Odor None Strong Comment sat on comode with no void Voiding Methods Urinal Urinal Laboratory Results WBC 8.14 k/cumm (4.4-10.8) 10/27/19 11:25 RBC 5.16 m/cumm (4.50-6.00) 10/27/19 11:25 Hgb 12.9 g/dL (13.5-17.5) L 10/27/19 11:25 Hct 41.6 % (40.0-50.0) 10/27/19 11:25 MCV 80.6 fL (80-95) 10/27/19 11:25 MCH 25.0 pg (27.0-33.0) L 10/27/19 11:25 MCHC 31.0 g/dL (32.0-36.0) L 10/27/19 11:25 RDW 16.9 % (11.8-14.1) H 10/27/19 11:25 Plt Count 336 x1000/uL (130-400) 10/27/19 11:25 MPV 9.0 fL (8.0-11.0) 10/27/19 11:25 Immature Gran % 0.3 % 10/25/19 06:12 Neutrophils % 62.8 10/25/19 06:12 Lymphocytes % 22.0 10/25/19 06:12 Monocytes % 8.7 10/25/19 06:12 Eosinophils % 5.5 10/25/19 06:12 Basophils % 0.7 10/25/19 06:12 Absolute Neutrophils 4.72 k/cumm (1.2-6.7) 10/25/19 06:12 Absolute Lymphocytes 1.65 k/cumm (1.2-3.4) 10/25/19 06:12 Absolute Monocytes 0.65 k/cumm (0.11-0.7) 10/25/19 06:12 Absolute Eosinophils 0.41 k/cumm (0.0-0.7) 10/25/19 06:12 Absolute Basophils 0.05 k/cumm (0.0-0.2) 10/25/19 06:12 PT 16.1 sec (9.3-11.0) H 10/27/19 06:30 INR 1.6 (0.9-1.1) H 10/27/19 06:30 APTT 33.3 sec (21.0-31.4) H 10/24/19 15:51 Sodium 138 mmol/L (136-145) 10/26/19 06:07 Potassium 4.2 mmol/L (3.5-5.1) 10/26/19 06:07 Chloride 100 mmol/L (98-107) 10/26/19 06:07 Carbon Dioxide 28.6 mmol/L (21.0-32.0) 10/26/19 06:07 Anion Gap 9.4 mmol/L (3-11) 10/26/19 06:07 BUN 14 mg/dL (7-18) 10/26/19 06:07 Creatinine 1.11 mg/dL (0.70-1.30) 10/26/19 06:07 Estimated GFR/1.73 m2 >= 60.00 (mL/min/1.73m2) 10/26/19 06:07 Glucose 102 mg/dL (74-106) 10/26/19 06:07 Hemoglobin A1c 6.6 % (3.8-5.6) H 10/25/19 06:12 Calcium 9.1 mg/dL (8.5-10.1) 10/26/19 06:07 Magnesium 2.1 mg/dL (1.8-2.4) 10/26/19 06:07 Total Bilirubin 0.6 mg/dL (0.2-1.0) 10/24/19 15:51 AST 21 U/L (15-37) 10/24/19 15:51 ALT 26 U/L (16-63) 10/24/19 15:51 Alkaline Phosphatase 100 U/L (46-116) 10/24/19 15:51 Troponin I < 0.05 ng/Ml (<0.06) 10/24/19 23:30 Total Protein 7.9 g/dL (6.4-8.2) 10/24/19 15:51 Albumin 3.5 g/dL (3.4-5.0) 10/24/19 15:51 Triglycerides 63 mg/dL (<150) 10/25/19 06:12 Total Cholesterol 142 mg/dL (<200) 10/25/19 06:12 LDL Cholesterol, Calc 69 mg/dL (<100) 10/25/19 06:12 HDL Cholesterol 61 mg/dL (40-60) 10/25/19 06:12 TSH 2.54 uIU/mL (0.36-3.74) 10/25/19 06:12 Urine Color Yellow (Yellow) 10/24/19 19:08 Urine Clarity Clear (Clear) 10/24/19 19:08 Urine pH 7.0 (5-8) 10/24/19 19:08 Ur Specific Woodward 1.015 (1.005-1.025) 10/24/19 19:08 Urine Protein Negative mg/dL (Negative) 10/24/19 19:08 Urine Ketones Negative mg/dL (Negative) 10/24/19 19:08 Urine Blood Trace-intact (Negative) H 10/24/19 19:08 Urine Nitrite Negative (Negative) 10/24/19 19:08 Urine Bilirubin Negative (Negative) 10/24/19 19:08 Urine Urobilinogen 0.2 EU/dL (Up TO 0.2) 10/24/19 19:08 Ur Leukocyte Esterase Negative (Negative) 10/24/19 19:08 Urine RBC 5-10 HPF (0-2) H 02/19/20 19:08 Urine WBC 0-2 HPF (0-5) 10/24/19 19:08 Ur Epithelial Cells Few HPF (Negative) 10/24/19 19:08 Urine Crystals Negative HPF (Negative) 10/24/19 19:08 Urine Bacteria Negative HPF (Negative) 10/24/19 19:08 Urine Casts Negative LPF (Negative) 10/24/19 19:08 Urine Mucus Negative (Negative) 10/24/19 19:08 Urine Other Negative (Negative) 10/24/19 19:08 Ur Culture Indicated? No 10/24/19 19:08 Urine Glucose Negative mg/dL (Negative) 10/24/19 19:08
--- NOTE | 2019-10-27 17:30 | PDOC.CMPRO ---
- If Service Date Differs Date of service: 10/27/19 Time of Service: 17:30 Care Management Progress Note S/O: Francois was sitting up in a recliner when CM met with him. He fell last night and had a CT of his head this morning as he was complaining of a headache. The scan was negative for any injury. Plan remains to transition to swing bed 1 when ready, possibly tomorrow. A: 69 year old male admitted to [facility] 10/25/2019 for Weakness, Falls P: Anticipate Francois will transition to SWB1 when ready per MD. CM will continue to follow and support discharge planning considerations.
[2019-10-27] MEDS: Normal Saline Flush 10 ML SYR IVP (19:54)
[2019-10-27] MEDS: Atorvastatin 40 MG TAB PO (19:54)
[2019-10-27] MEDS: Lidocaine Patch Removal 1 EACH TP (20:16)
[2019-10-27] MEDS: Amitriptyline 50 MG TAB 100 MG PO (21:37)
[2019-10-28] VITALS (7 sets, daily range): BP systolic 111–139; BP diastolic 69–78; PULSE 61–71; RESP 2–22; TEMP 36.5–36.8; O2SAT 92–95
[2019-10-28] MEDS: Acetaminophen 325 MG TAB PO (00:16)
[2019-10-28 07:34] LABS: INR 1.5 (0.9-1.1); Prothrombin Time 14.9 sec (9.3-11.0)
[2019-10-28] MEDS: Budesonide/Formoterol 80/4.5 6.9 GM 60 PUFF INH IH (07:54)
[2019-10-28] MEDS: Amiodarone 200 MG TAB PO (08:45)
[2019-10-28] MEDS: Sertraline 50 MG TAB PO (08:45)
[2019-10-28] MEDS: Furosemide 20 MG TAB PO (08:45)
[2019-10-28] MEDS: Donepezil 5 MG TAB 10 MG PO (08:45)
[2019-10-28] MEDS: Aspirin 81 MG CHEW PO (08:45)
[2019-10-28] MEDS: Potassium Chloride 10 MEQ CAPCR PO (08:45)
[2019-10-28] MEDS: amLODIPine 10 MG TAB PO (08:45)
[2019-10-28] MEDS: Tamsulosin 0.4 MG CAPCR PO (08:46)
[2019-10-28] MEDS: Metoprolol CR 100 MG TABCR PO (08:46)
[2019-10-28] MEDS: Lidocaine 5% Patch 1 PATCH TP (10:26)
[2019-10-28] MEDS: Enoxaparin 120 MG/0.8 ML SYR SC (10:27)
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
--- NOTE | 2019-10-28 12:11 | PT.INTREAT ---
Date of service: 10/28/19 Time of Service: 11:00 PT Notes Visit Reasons: WEAKNESS, FALLS Inpatient Physical Therapy Treatment Note [facility] Date: 10/28/19 PRECAUTIONS: Fall, standard and activities as tolerated SUBJECTIVE: Tired today. OBJECTIVE: PAIN: Not complaining of pain. BED MOBILITY/TRANSFERS Up in recliner upon my arrival to his room, with his sitting beside him. Sit-stand: CGA of 2 Stand-sit: CGA of 2 GAIT Assistive Device: FWW Weight bearing: Full Assist: CGA of 2, standing in front of patient to avoid pushing walker out too far and one person on right side of patient. Patient's pushed w/c behind patient for seated rest. Distance: 10ft and 12ft, requires repeated verbal cueing to shift weight to the left and advancement of left foot forward. Required one seated break between walking distances due to patient indicating he was getting tired. THEREX: Performed ankle pumps, LAQs, seated hip abduction against manual resistance and seated hip adduction squeezing pillow for 10 reps x 2 sets each. Had patient attempt to sit on edge of chair while applying robe and gait belt. Patient had difficulty with this, loosing balance to the right several times. ASSESSMENT: Continues to be very unstable with ambulation and difficult time sitting up on his own today without back support. Appeared to fatigue more quickly with ambulation today. PLAN: Continue with current plan of care, with focus on improved functional mobility for ADL activity. TREATMENT CODE/TIME: [id number] (25'), 11:00 to 11:25
[2019-10-28] MEDS: Albuterol/Ipratropium 3 ML UPD VIAL UPD (12:12)
--- NOTE | 2019-10-28 14:24 | PDOC.CMPRO ---
- If Service Date Differs Date of service: 10/28/19 Time of Service: 12:00 Care Management Progress Note Francois is being transferred into SB1 status this afternoon. He will continue to work with physical therapy for strengthening, balance and increased mobility and ambulation.
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
--- NOTE | 2019-11-01 15:10 | CMACTNOTE_ITS ---
Care Management Activity Note Francois was playing cards and watching TV when CM entered the room. His , Angie visited this morning for a few hours and has been visiting consistently, daily, when the weather permits. Francois enjoys getting up and walking with staff support. He has long periods of lucidity and is pleasant in interaction. He also has some brief and random spurts of confusion and impulsively. CM requested provider order Dr. Martinez, which provider was agreeable to. Angie continues to work with this continuity writer and Vannessa Johnson to complete requirements to receive financial determination on . Vannessa Johnson RN [address] [phone] [email or web address]
--- NOTE | 2019-11-06 12:55 | CMPROGNOTE_ITS ---
Care Management Progress Note Angie brought a list of required documents from [employer]. ROSSI completed additional paperwork with Angie and Francois and faxed updated documents to the [facility] Document Center on Francois's behalf. ROSSI made a task list for Angie to complete as bank account statements from both of her accounts have been requested for 2014, as well as [employer] Premium information for 2019. Francois was sitting up in his chair having lunch, he was pleasant in interaction and alert throughout paperwork completion.
== END 2019-10-28 13:37 | disposition swing bed (61) | DRG 57 ==
LOC: ER 17:42 → MS 18:01
PROVIDERS: Internal Medicine; Nurse Practitioner Family; Admitting Provider Internal Medicine; Emergency Provider Emergency Medicine; PCP Family Medicine; Visit Provider Internal Medicine
DX: I69.354 Hemiplegia and hemiparesis following cerebral infarction affecting left non-dominant side (principal); R26.0 Ataxic gait; R53.1 Weakness; R29.6 Repeated falls; F01.50 Vascular dementia, unspecified severity, without behavioral disturbance, psychotic disturbance, mood disturbance, and anxiety; G30.9 Alzheimer's disease, unspecified; F02.80 Dementia in other diseases classified elsewhere, unspecified severity, without behavioral disturbance, psychotic disturbance, mood disturbance, and anxiety; R29.810 Facial weakness; R51 Headache; W19.XXXA Unspecified fall, initial encounter; Y92.239 Unspecified place in hospital as the place of occurrence of the external cause; I69.312 Visuospatial deficit and spatial neglect following cerebral infarction; H53.462 Homonymous bilateral field defects, left side; Z51.5 Encounter for palliative care; Z71.89 Other specified counseling; Y83.2 Surgical operation with anastomosis, bypass or graft as the cause of abnormal reaction of the patient, or of later complication, without mention of misadventure at the time of the procedure; Z95.3 Presence of xenogenic heart valve; Z71.3 Dietary counseling and surveillance; I10 Essential (primary) hypertension; I48.0 Paroxysmal atrial fibrillation; M54.2 Cervicalgia; E11.9 Type 2 diabetes mellitus without complications; N40.0 Benign prostatic hyperplasia without lower urinary tract symptoms; Z95.1 Presence of aortocoronary bypass graft; Z79.01 Long term (current) use of anticoagulants; Z86.711 Personal history of pulmonary embolism; J44.9 Chronic obstructive pulmonary disease, unspecified; F32.9 Major depressive disorder, single episode, unspecified; E78.00 Pure hypercholesterolemia, unspecified; Z87.891 Personal history of nicotine dependence
CPT/HCPCS: 36415; 80048; 80053; 80061; 85027; 93005; 94640; 97110; 97162; 97166; 97530; 97535; 99220; 99223; 99232; 99233; 99239; 99254; 99285; 70450; 70551; 72050; 72125; 81003; 81015; 83036; 83735; 84443; 84484; 85025; 85610; 85730; 93010; G0378; J1650; J3490; J7620

== ENCOUNTER → 2019-10-25 07:50 | Outpatient (BNVA) | payer OTHER, SELFPAY | PROVIDERS: PCP Family Medicine; Referring Provider Family Medicine; Visit Provider Psychiatry & Neurology Neurology | DX: R69 Illness, unspecified (principal) ==

== ENCOUNTER 2019-10-28 12:57 | Inpatient (IN) | payer OTHER, MEDICAID, SELFPAY ==
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
--- NOTE | 2019-10-28 14:12 | NUR.NOTE ---
Nursing Note:10/28/19 1400 Pt was made swing bed today.
[2019-10-28 14:30] VITALS: BP 121/74; PULSE 64; RESP 20; TEMP 36.8; O2SAT 93
[2019-10-28 15:55] VITALS: BP 143/72; PULSE 68; RESP 18; TEMP 36.7; O2SAT 92
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
--- NOTE | 2019-10-28 16:00 | CMSCP_ITS ---
- If Service Date Differs Date of service: 10/28/19 Time of Service: 16:00 Swingbed Plan of Care Plan of care: SWING BED PROGRAM ACTIVITIES/DISCHARGE PLAN OF CARE ACTIVITIES PLAN Date:10/28/19 Identified Need: Individualized care plan Intervention/Plan: Francois will be offered books with a western theme. He will be offerd musi and music therapy as well as reiki and pet therapy when available. Initials [facility] DISCHARGE PLAN Date:10/28/19 Identified Need: Safe discharge plan Intervention/Plan: Francois will continue to work with PT for strengthening and mobility. The goal id for him to discharge home but intermediate card tender care may be needed. A intermediate card tender medicaid application is in process. Initials: [facility]
[2019-10-28] MEDS: Amiodarone 200 MG TAB PO (19:34)
[2019-10-28] MEDS: Atorvastatin 40 MG TAB PO (19:34)
[2019-10-28] MEDS: Metoprolol CR 100 MG TABCR PO (19:34)
[2019-10-28] MEDS: Warfarin 5 MG TAB PO (19:34)
[2019-10-28] MEDS: Budesonide/Formoterol 80/4.5 6.9 GM 60 PUFF INH IH (19:35)
[2019-10-28] MEDS: Amitriptyline 50 MG TAB 100 MG PO (21:04)
[2019-10-28] MEDS: Enoxaparin 120 MG/0.8 ML SYR SC (21:05)
[2019-10-28] MEDS: Lidocaine Patch Removal 1 EACH TP (21:07)
[2019-10-28 23:15] VITALS: BP 146/79; PULSE 66; RESP 19; TEMP 36.5; O2SAT 96
[2019-10-29] MEDS: Acetaminophen 325 MG TAB PO ×3 (00:41→15:34)
[2019-10-29 07:03] LABS: INR 1.5 (0.9-1.1); Prothrombin Time 14.6 sec (9.3-11.0)
[2019-10-29 07:51] VITALS: BP 130/69; PULSE 64; RESP 18; TEMP 36.3; O2SAT 93
--- NOTE | 2019-10-29 08:51 | PHARADMIT ---
Addendum entered and electronically signed by Bushra Braga 11/10/19 11:44: Pharmacy Note Subjective swing bed, plan for home on Tuesday Objective INR 2.2 Assessment warfarin dose adjusted Plan watch for med changes Original Note: Addendum entered and electronically signed by Anam Arguello III 11/04/19 13:17: swing bed VS-OK INR-3.3 WARFARIN DECREASED TO 2.5MG RECEIVINGPT TO IMPROVING BASELINE FUNCTIONING SO HE CAN RETURN HOME. Addendum entered by Bushra Braga 10/29/19 08:52: PT NOW SWINGBED VS OK INR 1.5 WARFARIN DOSE INCREASED Subjective Objective Assessment Plan Original Note: *Live* - NVT MARY SAGASTUME A Male : 1950 Emr# [id number] 10/25/19 16:34 - Pharmacy Review by Alicia Husain Acct Num: [id number] : 1950 Patient Age: 69 Addendum entered by Anam Arguello III 10/26/19 11:17: Pharmacy Note Subjective Stroke-CVA ruled out. Appears that his falls may be due to his dementia, severe ataxia & left sided weakness. Falls are of concern because he is being anticoagulated (on Warfarin). Palliative care consult. Objective VS-OK INR-2.0 Labs-WNL Assessment Lidoderm Patch ordered for neck pain. Warfarin dose to 3mg (INR-2.0) Plan Plan is to return home with services vs a sort rehab stay Original Note: Admission Pharmacy Clinical Review weakness, falls Code Status Full Code Current Weight 117.5 kg Renally Cleared and Narrow Therapeutic Index Meds Crcl ~74 mL/min current meds okay QTc Value / Action Taken QTc 412 BP Control, Fever BP 128/78 afebrile Electrolytes reviewed within normal limits DVT Prophylaxis pt is on warfarin Opiate Usage / Scheduled Bowel Regimen Ordered no/prn Plt/SCr for Heparin / Enoxaparin plt 330 SCr 1.06 INR for Warfarin INR 2.4 H/H stable, WBC/Bands h/h 12.7/40.7 wbc 7.51 Antibiotic appropriateness none Cultures and Sensitivities none Surgical ABX d/c within 24 hr n/a DM control / Insulin Dosing BG 98 none Heart Failure (Check EF%) (AYO's, B-Block, Diuretics) amlodipine, furosemide, metoprolol IV to PO Switch n/a Home Meds Reviewed -amitriptyline may enhance the ulcerogenic effect of potassium -amiodarone may enhance the anticoagulant effect of warfarin -aspirin may enhance the anticoagulant effect of warfarin Home Meds Not Ordered albuterol, benzonatate, cyanocobalamin Comments neuro consult today brain MRI ordered Initialized on 10/25/19 16:34 - END OF NOTE Code Status Full Code Current Weight Renally Cleared and Narrow Therapeutic Index Meds QTc Value / Action Taken BP Control, Fever Electrolytes reviewed DVT Prophylaxis Opiate Usage / Scheduled Bowel Regimen Ordered Plt/SCr for Heparin / Enoxaparin INR for Warfarin H/H stable, WBC/Bands Antibiotic appropriateness Cultures and Sensitivities Surgical ABX d/c within 24 hr DM control / Insulin Dosing Heart Failure (Check EF%) (AYO's, B-Block, Diuretics) IV to PO Switch Home Meds Reviewed Home Meds Not Ordered Comments
[2019-10-29] MEDS: Amiodarone 200 MG TAB PO ×2 (09:06→19:59)
[2019-10-29] MEDS: amLODIPine 10 MG TAB PO (09:06)
[2019-10-29] MEDS: Metoprolol CR 100 MG TABCR PO ×2 (09:06→19:59)
[2019-10-29] MEDS: Tamsulosin 0.4 MG CAPCR PO (09:07)
[2019-10-29] MEDS: Aspirin 81 MG CHEW PO (09:07)
[2019-10-29] MEDS: Donepezil 5 MG TAB 10 MG PO (09:07)
[2019-10-29] MEDS: Potassium Chloride 10 MEQ CAPCR PO (09:07)
[2019-10-29] MEDS: Sertraline 50 MG TAB PO (09:07)
[2019-10-29] MEDS: Furosemide 20 MG TAB PO (09:07)
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
[2019-10-29] MEDS: Enoxaparin 120 MG/0.8 ML SYR SC (10:10)
[2019-10-29] MEDS: Lidocaine 5% Patch 1 PATCH TP (10:11)
[2019-10-29] MEDS: Budesonide/Formoterol 160/4.5 6 GM 60 PUFF INH IH ×2 (10:14→19:59)
--- NOTE | 2019-10-29 14:46 | PT.INTREAT ---
Date of service: 10/29/19 Time of Service: 14:46 PT Notes Visit Reasons: AMBULATORY DYSFUNCTION 10/29/2019 SUBJECTIVE: Francois reporting some discomfort in the left knee which is a baseline level of discomfort. No pain in his neck today. OBJECTIVE: Seated in his recliner. Agreeable to PT treatment. TRANSFERS Sit to stand: CGA Stand to sit: CGA, verbal cues GAIT Device: Bariatric FWW Weight bearing: Full Assist: CGA Distance: 60'x3 Deviation: Three sit rest breaks, cues for walker management THEREX: Seated UE/LE strengthening exercises. Utilized green thera band for increased resistance for his UE's. ASSESSMENT: Pt progressing with his gait distance. He continues to require significant amount of verbal cues to keep his walker close to him. He complains of knee pain with increasing distance which I believe is baseline for him from previous injury. PLAN: Continue current POC. Lisa Fu, HOUSE PAINTING INSTRUCTOR
--- NOTE | 2019-10-29 16:12 | CHAPLAIN ---
Francois was sitting up in a recliner with a lot of pillows around him. He didn't look like he was in a comfortable position, but he said he was. He was not sure if family members would be in to visit or not. He said he has a job to get to tomorrow if the weather is good, and he was worried about that. I don't know if this is accurate.
[2019-10-29] MEDS: LORazepam 0.5 MG TAB PO (16:20)
[2019-10-29] MEDS: metFORMIN 500 MG TAB PO (17:06)
[2019-10-29] MEDS: Insulin Aspart 300 UNITS/3 ML PEN SC (17:08)
[2019-10-29 19:58] VITALS: BP 130/78; PULSE 71; RESP 19; TEMP 36.9; O2SAT 96
[2019-10-29] MEDS: Warfarin 5 MG TAB 7.5 MG PO (19:59)
[2019-10-29] MEDS: Atorvastatin 40 MG TAB PO (20:00)
[2019-10-29] MEDS: Amitriptyline 50 MG TAB 100 MG PO (22:24)
[2019-10-29] MEDS: Lidocaine Patch Removal 1 EACH TP (22:25)
[2019-10-30] MEDS: LORazepam 0.5 MG TAB PO (00:20)
[2019-10-30 05:37] VITALS: BP 145/87; PULSE 67; RESP 19; TEMP 36.7; O2SAT 95
[2019-10-30 07:04] LABS: Platelet Count 369 x1000/uL (130-400)
[2019-10-30 07:11] LABS: INR 1.5 (0.9-1.1); Prothrombin Time 15.1 sec (9.3-11.0)
[2019-10-30] MEDS: Acetaminophen 325 MG TAB PO ×2 (07:41→14:40)
[2019-10-30] MEDS: Docusate Sodium 100 MG CAP PO (07:41)
[2019-10-30] MEDS: Aspirin 81 MG CHEW PO (07:41)
[2019-10-30] MEDS: Tamsulosin 0.4 MG CAPCR PO (07:41)
[2019-10-30] MEDS: Donepezil 5 MG TAB 10 MG PO (07:41)
[2019-10-30] MEDS: metFORMIN 500 MG TAB PO ×2 (07:41→17:18)
[2019-10-30] MEDS: amLODIPine 10 MG TAB PO (07:42)
[2019-10-30] MEDS: Furosemide 20 MG TAB PO (07:42)
[2019-10-30] MEDS: Sertraline 50 MG TAB PO (07:42)
[2019-10-30] MEDS: Amiodarone 200 MG TAB PO ×2 (07:42→19:56)
[2019-10-30] MEDS: Potassium Chloride 10 MEQ CAPCR PO (07:43)
[2019-10-30] MEDS: Metoprolol CR 100 MG TABCR PO ×2 (07:43→19:56)
[2019-10-30 07:44] VITALS: BP 132/85; PULSE 63; RESP 20; TEMP 36.5; O2SAT 92
[2019-10-30] MEDS: Budesonide/Formoterol 160/4.5 6 GM 60 PUFF INH IH ×2 (09:12→19:54)
--- NOTE | 2019-10-30 10:25 | PT.INTREAT ---
PT Notes Visit Reasons: AMBULATORY DYSFUNCTION Inpatient Physical Therapy Treatment Note [facility] Date: 10/30/19 PRECAUTIONS: Falls SUBJECTIVE: Pt reports that he needs new sock because he has been mopping the floors all night. OBJECTIVE: Sit-stand: Min assist x2 blocking pt's feet Stand-sit: CGA/Min assistx2 GAIT Assistive Device: FWW Weight bearing: Full Assist: CGAx2 Distance: 103 ft rest 103 ft follow with w/c THEREX: Pt completed UE strengthening ther ex with the green band as per flow sheet and LE strengthening ther ex as per flow sheet. ASSESSMENT: Pt tolerated today's session fairly well. Pt required cuing for his walker being too far forward and also his feet slipping out from under him when transferring from sit to stand. PLAN: Cont as per PT POC. TREATMENT CODE/TIME: 9:15-9:45 (30) DONNELL LION
--- NOTE | 2019-10-30 11:36 | W.NUTCONSULT ---
Date of service: 10/30/19 Time of Service: 11:36 Nutritional Consult ASSESSMENT: 69 year old male admitted with ambulatory dysfunction. PMH: CVA with right sided face droop, no dysphagia reported, newly diagnosed DM. Following diabetic diet wtih 100% completion. BMI indicates class 2 obesity. Not currently considered at nutritional riskl MONITORING AND EVALUATION: po intake, weight, labs Time Spent in Nutritional Counseling and Treatment: 0 time spent face to face
[2019-10-30 11:45] VITALS: BP 113/72; PULSE 66; RESP 18; TEMP 36.4; O2SAT 92
[2019-10-30] MEDS: Lidocaine 5% Patch 1 PATCH TP (13:54)
--- NOTE | 2019-10-30 14:56 | PT.INTREAT ---
Date of service: 10/30/19 Time of Service: 14:56 PT Notes Visit Reasons: AMBULATORY DYSFUNCTION 10/30/2019 SUBJECTIVE: Francois states his knees are bothersome with weight bearing. Nursing aware. OBJECTIVE: Seated in his recliner. His his present. Francois is agreeable to PT treatment. EDUCATION: Discussion with Francois and his about transfer safety and gait at home. Francois appears to be physically strong enough to perform transfers with minimal assist as well as gait and pt's agrees. He requires constant cueing for safety with the walker as well as transfers and we discuss this at length. TRANSFERS Sit to stand: CGA Stand to sit: CGA GAIT Device: FWW Weight bearing: Full Assist: CGA Distance: 40'+40'+80' with sit rest breaks between bout of walking Deviation: Step to pattern, cues to maintain self within the walker. Wheel chair follow. ASSESSMENT: Pt requires increased rest breaks today with his gait and complains of knee pain throughout. He continues to require max cues for transfers and walker management and this will be something his will have to carryover if the plan is for him to go home verse SNF. PLAN: Continue current POC. Treatment time: 530 Lisa Fu PTA
[2019-10-30 16:50] VITALS: BP 148/77; PULSE 80; RESP 18; TEMP 37; O2SAT 93
--- NOTE | 2019-10-30 17:35 | CMPROGNOTE_ITS ---
Care Management Progress Note PT reports anticipating Francois may meet his goals within the next week, and be at baseline functioning. CM requested PT begin working with Francois's on transfer support. CM met with Angie to review PT recommendations. CM reviewed Swing Bed admission requirements and considerations for safe discharge planning. Angie was agreeable to working with PT on transfer education to protect herself if she needs to help Francois in the home setting. CM sent updated financial and clinical information to [facility]: Juanis Alvarez i(P#[phone], F#[phone]), [place], [facility]. ROSSI has not heard back since outreaching to Juanis on Tuesday. CM continues to support LTM process to support Francois acquiring insurance coverage for care in home setting, or fci placement in senior living setting.
[2019-10-30] MEDS: Atorvastatin 40 MG TAB PO (19:55)
[2019-10-30] MEDS: Warfarin 5 MG TAB 10 MG PO (19:56)
[2019-10-30] MEDS: Amitriptyline 50 MG TAB 100 MG PO (21:34)
[2019-10-30] MEDS: Lidocaine Patch Removal 1 EACH TP (21:35)
[2019-10-31 01:10] VITALS: BP 128/74; PULSE 67; RESP 19; TEMP 36.9; O2SAT 94
[2019-10-31 07:07] LABS: INR 1.8 (0.9-1.1); Prothrombin Time 17.7 sec (9.3-11.0)
[2019-10-31 07:57] VITALS: BP 128/77; PULSE 63; RESP 18; TEMP 36.7; O2SAT 94
[2019-10-31] MEDS: Budesonide/Formoterol 160/4.5 6 GM 60 PUFF INH IH ×2 (08:21→19:46)
[2019-10-31] MEDS: Aspirin 81 MG CHEW PO (09:05)
[2019-10-31] MEDS: Furosemide 20 MG TAB PO (09:05)
[2019-10-31] MEDS: Donepezil 5 MG TAB 10 MG PO (09:05)
[2019-10-31] MEDS: Potassium Chloride 10 MEQ CAPCR PO (09:05)
[2019-10-31] MEDS: Lidocaine 5% Patch 1 PATCH TP (09:05)
[2019-10-31] MEDS: Tamsulosin 0.4 MG CAPCR PO (09:06)
[2019-10-31] MEDS: amLODIPine 10 MG TAB PO (09:06)
[2019-10-31] MEDS: Sertraline 50 MG TAB PO (09:06)
[2019-10-31] MEDS: Amiodarone 200 MG TAB PO ×2 (09:06→19:47)
[2019-10-31] MEDS: metFORMIN 500 MG TAB PO ×2 (09:06→17:18)
[2019-10-31] MEDS: Acetaminophen 325 MG TAB PO (09:07)
[2019-10-31] MEDS: Metoprolol CR 100 MG TABCR PO ×2 (09:07→19:46)
--- NOTE | 2019-10-31 09:25 | OTTR_ITS ---
Date of service: 10/31/19 Time of Service: 09:10 Occupational Therapy Notes Occupational Therapy Inpatient Treatment Note Date: 10/31/19 PRECAUTIONS: Fall, Standard SUBJECTIVE: Pt was sitting in chair when OT arrived. He was agreeable to OT session and notes that he is tired. OBJECTIVE: PAIN:no c/o pain BATHING: Sitting in chair with max (A) set and min vc Upper Body: Was able to wash face, (B) UE, and abdomen/ under arms with good technique DRESSING: Sitting in chair Upper Extremity: OT had to place pts shirt on his lap with back side up and then pt was able to don shirt with good technique. He ASSESSMENT/PLAN: Work with pt on standing ADLs as pt tolerates. He is demonstrating (I) but requires vc and orientation with dressing. TREATMENT CODES/TIME: [id number], 13 minutes (09:10) Fanta Miranda OTR/[facility]
--- NOTE | 2019-10-31 11:35 | PT.INTREAT ---
Date of service: 10/31/19 Time of Service: 11:35 PT Notes Visit Reasons: AMBULATORY DYSFUNCTION Inpatient Physical Therapy Treatment Note [facility] Date: 10/31/2019 PRECAUTIONS: Standard. Fall. Activity as tolerated. SUBJECTIVE: Pt reports that he is tired today. Per sitter, patient did not sleep at all last night. OBJECTIVE: Seated in bedside chair with lateral trunk lean to the right. PAIN: 0/10 BED MOBILITY/TRANSFERS Rolling L/R: NT Supine-sit: NT Sit-supine: NT Sit-stand: SBA Stand-sit: SBA Bed-Chair: CGA Chair-bed: CGA GAIT: Pt was able to ambulate 100 feet + 100 feet, full weightbearing, using bariatric front-wheeled walker. CGA provided by PT and PT student with wheelchair follow. Step to gait pattern. Maximal cues for walker safety as he tends to push the walker too far forward. Required two seated rest breaks due to fatigue. No complaints of increased pain. He was able to self-propel the wheelchair approximately 30 feet back to his room without assistance through the door frame. ASSESSMENT: Pt demonstrated improvements in walking ability today as he was able to walk a greater distance without complaints of increased pain in his left lower extremity which has limited him in previous treatment sessions. He did still require two seated rest breaks due to fatigue and lack of sleep throughout the night. He presented with improved performance with transfers as he required only stand by assist and has required contact guard assist prior to today?s treatment session. He would continue to benefit from skilled physical therapy at this time. PLAN: Continue with established POC. [facility]charge [facility]. TREATMENT CODE/TIME: 64464 x 15 minutes beginning at 11:35 A.M. OLGA Mckeon Doctor of Physical Therapy Student [facility] Supervision provided by Yesika Solano PT, DPT, CLT [facility] [place], [place]
--- NOTE | 2019-10-31 13:40 | PTTR_ITS ---
Date of service: 10/31/19 Time of Service: 13:40 PT Notes Visit Reasons: AMBULATORY DYSFUNCTION 10/31/2019 SUBJECTIVE: Pt stating his knees are not too bad today. He is agreeable to PT. OBJECTIVE: Seated in wheel chair in the stewart with ELECTRIC VEHICLE ELECTRICIAN. Agreeable to PT. TRANSFERS Sit to stand: SBA Stand to sit: SBA with verbal cues for hand placement. GAIT Device: Bariatric FWW Weight bearing: Full Assist: CGA Distance: 50'x3 Deviation: Seated rest break x 2 due to fatigue in his LE's. ASSESSMENT: Pt improving with his sit to stand transfers. He requires cues for walker safety and hand placement when going from stand to sit. He was able to correct his walker position today with only verbal cues and bring the walker back close to him. Continues to requires significant amount of verbal cues when changing directions or when backing up to sit into the chair. PLAN: Continue with gait and transfer training. Treatment time: 20' [id number] Lisa Fu, COMPLAINT INSPECTOR
[2019-10-31 16:14] VITALS: BP 116/78; PULSE 71; RESP 19; TEMP 37.7; O2SAT 92
[2019-10-31] MEDS: LORazepam 0.5 MG TAB PO (18:52)
[2019-10-31] MEDS: Atorvastatin 40 MG TAB PO (19:46)
[2019-10-31] MEDS: Warfarin 5 MG TAB 7.5 MG PO (19:46)
[2019-10-31] MEDS: Amitriptyline 50 MG TAB 100 MG PO (21:25)
[2019-10-31] MEDS: Lidocaine Patch Removal 1 EACH TP (21:26)
[2019-10-31 23:25] VITALS: BP 120/71; PULSE 74; RESP 19; TEMP 36.6; O2SAT 90
[2019-11-01 06:58] LABS: INR 2.4 (0.9-1.1); Prothrombin Time 23.9 sec (9.3-11.0)
[2019-11-01 07:44] VITALS: BP 119/75; PULSE 60; RESP 18; TEMP 36.8; O2SAT 93
[2019-11-01] MEDS: Budesonide/Formoterol 160/4.5 6 GM 60 PUFF INH IH ×2 (08:10→19:57)
[2019-11-01 08:11] VITALS: O2SAT 94
[2019-11-01] MEDS: Lidocaine 5% Patch 1 PATCH TP (09:22)
[2019-11-01] MEDS: Potassium Chloride 10 MEQ CAPCR PO (09:24)
[2019-11-01] MEDS: Amiodarone 200 MG TAB PO ×2 (09:24→19:57)
[2019-11-01] MEDS: Furosemide 20 MG TAB PO (09:25)
[2019-11-01] MEDS: amLODIPine 10 MG TAB PO (09:25)
[2019-11-01] MEDS: Aspirin 81 MG CHEW PO (09:25)
[2019-11-01] MEDS: Tamsulosin 0.4 MG CAPCR PO (09:25)
[2019-11-01] MEDS: Metoprolol CR 100 MG TABCR PO ×2 (09:26→19:57)
[2019-11-01] MEDS: Donepezil 5 MG TAB 10 MG PO (09:26)
[2019-11-01] MEDS: Sertraline 50 MG TAB PO (09:26)
[2019-11-01] MEDS: metFORMIN 500 MG TAB PO ×2 (09:26→17:37)
[2019-11-01 09:35] VITALS: O2SAT 94
--- NOTE | 2019-11-01 10:03 | OT.INTREAT ---
Date of service: 11/01/19 Time of Service: 09:20 Occupational Therapy Notes Occupational Therapy Inpatient Treatment Note Date: 11/01/19 PRECAUTIONS: Fall, Standard Full Code SUBJECTIVE: Pt was sitting in chair when OT arrived. He was agreeable to OT session, OBJECTIVE: PAIN:no c/o pain FUNCTIONAL MOBILITY Sit-stand: CGA, FWW Stand-sit: CGA, FWW Chair-Sink: CGA, FWW BATHING: Sitting at sink Upper Body: (I) washing face, (B) UE Lower Body: Not performed at todays session DRESSING: sitting in chair Upper Extremity: (I) don and doffing shirt with placement of shirt in position for pt to put on. Lower Extremity: Mod (A) donning pants, (I) doffing shoes although required vc and was mod (A) donning (B) shoes. GROOMING: standing at sink with FWW, pt was able to brush his teeth with good technique. He picked his tooth brush and missed his mouth and went into his upper lip to start. It is unclear whether this is neurological or a vision deficit. Pt also missed grabbing his walker when standing up with a slight deviation in grasp. ASSESSMENT/PLAN: Plan is to continue to progress pt towards goals established with training in performing ADLs as (I) as possible with adaptive equipment. OT will continue to monitor pts response to todays session and progress accordingly. TREATMENT CODES/TIME: [id number], 20 minutes (09:20) Fanta Miranda OTR/[facility]
[2019-11-01] MEDS: LORazepam 0.5 MG TAB PO ×2 (13:24→18:51)
[2019-11-01] MEDS: Acetaminophen 325 MG TAB PO (13:24)
--- NOTE | 2019-11-01 15:38 | PT.INTREAT ---
Date of service: 11/01/19 Time of Service: 15:38 PT Notes Visit Reasons: AMBULATORY DYSFUNCTION 11/01/2019 SUBJECTIVE: Pt complains of knee pain with gait. He is pleasantly confused throughout his sessions. OBJECTIVE: Pt seen in the AM and PM for PT services. TRANSFERS Sit to stand: SBA Stand to sit: SBA GAIT Device: FWW Weight bearing: Full Assist: CGA Distance: AM- 50'x3 with 2 seated rest breaks, PM- 40'x2+50' with 2 seated rest breaks Deviation: Max cues for walker, wheel chair follow. THEREX: Resisted UE strengthening exercises performed in the chair. See flow sheet. ASSESSMENT: Pt's gait is limited by knee discomfort and he requires frequent rest breaks. His transfers are becoming easier for him even out of a low chair. He will continue to require constant cueing for safety with the walker and hand placements to the chair for transfers. PLAN: Continue current POC. Treatment time: AM: 25' [id number], [id number] PM: 20' 23342 Lisa Fu PTA
[2019-11-01] MEDS: Atorvastatin 40 MG TAB PO (19:56)
[2019-11-01] MEDS: Warfarin 5 MG TAB PO (19:56)
[2019-11-01 20:05] VITALS: BP 141/81; PULSE 75; RESP 18; TEMP 36.9; O2SAT 95
[2019-11-01] MEDS: Amitriptyline 50 MG TAB 100 MG PO (20:59)
[2019-11-01] MEDS: Lidocaine Patch Removal 1 EACH TP (21:01)
[2019-11-02 08:20] VITALS: BP 121/73; PULSE 65; RESP 20; TEMP 36.8; O2SAT 92
[2019-11-02 08:20] LABS: INR 2.9 (0.9-1.1); Prothrombin Time 28.4 sec (9.3-11.0)
[2019-11-02] MEDS: Budesonide/Formoterol 160/4.5 6 GM 60 PUFF INH IH ×2 (08:46→19:36)
--- NOTE | 2019-11-02 09:31 | OTTR_ITS ---
Date of service: 11/02/19 Time of Service: 08:45 Occupational Therapy Notes Occupational Therapy Inpatient Treatment Note Date: 11/02/19 PRECAUTIONS: Fall, Standard, Full Code SUBJECTIVE: Pt was sitting in chair with SHAPER MACHINE HAND present in the room when OT arrived. He was agreeable to OT session and notes that he would like to shower today. OBJECTIVE: PAIN:no c/o pain FUNCTIONAL MOBILITY Sit-stand: CGA, FWW Stand-sit: CGA, FWW BATHING: In shower seated on shower bench Upper Body: Min vc pt was able to wash his face, abdomen, (B) UE, max (A) back and mod (A) hair. Lower Body: (I) to ankles and (B) feet with min vc, (I) osbaldo area with vc DRESSING: seated on shower seat Upper Extremity: (I) doff shirt prior to shower and min (A) donning shirt post shower Lower Extremity: Max (A) don and doff (B) socks, mod (A) donning underwear and pants with good technique. GROOMING: Seated pt was (I) with brushing his hair ASSESSMENT/PLAN: Pt tolerated ADLs well. He is more receptive to performance of them earlier in the morning. He requires (A) with orientation for dressing and vc for performance of dressing and bathing. Functionally pt has been able to to lerate ADLs/IADLs well. OT will assess pts progress at next session (Tuesday). TREATMENT CODES/TIME: [id number], 48 minutes (08:45) Fanta Miranda OTR/[facility]
[2019-11-02] MEDS: Lidocaine 5% Patch 1 PATCH TP (09:51)
[2019-11-02] MEDS: Metoprolol CR 100 MG TABCR PO ×2 (09:52→19:37)
[2019-11-02] MEDS: Donepezil 5 MG TAB 10 MG PO (09:52)
[2019-11-02] MEDS: Aspirin 81 MG CHEW PO (09:52)
[2019-11-02] MEDS: Furosemide 20 MG TAB PO (09:52)
[2019-11-02] MEDS: amLODIPine 10 MG TAB PO (09:52)
[2019-11-02] MEDS: Amiodarone 200 MG TAB PO ×2 (09:52→19:37)
[2019-11-02] MEDS: Potassium Chloride 10 MEQ CAPCR PO (09:52)
[2019-11-02] MEDS: Sertraline 50 MG TAB PO (09:52)
[2019-11-02] MEDS: Tamsulosin 0.4 MG CAPCR PO (09:53)
[2019-11-02] MEDS: metFORMIN 500 MG TAB PO ×2 (09:53→16:58)
--- NOTE | 2019-11-02 11:47 | PT.INTREAT ---
Date of service: 11/02/19 Time of Service: 11:47 PT Notes Visit Reasons: AMBULATORY DYSFUNCTION 11/02/2019 SUBJECTIVE: Francois noting knee discomfort with ambulation. No other subjective information offered. OBJECTIVE: Seated in his recliner. Pt is headed to the shower. TRANSFERS Sit to stand: SBA Stand to sit: SBA GAIT Device: FWW Weight bearing: Full Assist: CGA Distance: 30'+80' Deviation: 1 seated rest break. ASSESSMENT: Pt's gait limited by left knee pain. He is becoming more independent with his transfers although continues to require cues for hand placement with stand to sit transfers. With cues pt can increase his stride length and improve overall quaility of his gait. PLAN: Continue current POC. Treatment time: 15 Lisa Fu PTA
--- NOTE | 2019-11-02 15:02 | PT.INTREAT ---
Date of service: 11/02/19 Time of Service: 15:02 PT Notes Visit Reasons: AMBULATORY DYSFUNCTION 11/02/2019 SUBJECTIVE: Pt feeling a little tired this afternoon. No other complaints. OBJECTIVE: Seated in his recliner with SOLIDWORKS DESIGNER present. Agreeable to PT. TRANSFERS Sit to stand: SBA Stand to sit: SBA GAIT Device: FWW Weight bearing: Full Assist: CGA Distance: 50'+50'+100' Deviation: Sit rest break x 2, wheel chair follow ASSESSMENT: Tolerating PT well with improvements in gait pattern and stride length. Continues to require cues for safety with the walker and hand placement with transfers. PLAN: Continue per POC. Treatment time: 15' [id number] Lisa Fu, SPRINKLER IRRIGATION EQUIPMENT MECHANIC
[2019-11-02 15:25] VITALS: BP 112/58; PULSE 68; RESP 19; TEMP 36.7; O2SAT 91
[2019-11-02] MEDS: Amitriptyline 50 MG TAB 100 MG PO (19:37)
[2019-11-02] MEDS: Atorvastatin 40 MG TAB PO (19:37)
[2019-11-02] MEDS: Warfarin 5 MG TAB PO (19:37)
[2019-11-03 01:42] VITALS: BP 123/74; PULSE 60; RESP 23; TEMP 36.6; O2SAT 93
[2019-11-03 07:05] LABS: INR 3.6 (0.9-1.1); Prothrombin Time 34.6 sec (9.3-11.0)
[2019-11-03 07:45] VITALS: BP 107/70; PULSE 57; RESP 21; TEMP 36.4; O2SAT 96
[2019-11-03] MEDS: Tamsulosin 0.4 MG CAPCR PO (07:53)
[2019-11-03] MEDS: Furosemide 20 MG TAB PO (07:53)
[2019-11-03] MEDS: Sertraline 50 MG TAB PO (07:54)
[2019-11-03] MEDS: Donepezil 5 MG TAB 10 MG PO (07:54)
[2019-11-03] MEDS: Potassium Chloride 10 MEQ CAPCR PO (07:54)
[2019-11-03] MEDS: metFORMIN 500 MG TAB PO ×2 (07:55→17:07)
[2019-11-03] MEDS: Aspirin 81 MG CHEW PO (07:55)
[2019-11-03] MEDS: Metoprolol CR 100 MG TABCR PO ×2 (07:56→19:45)
[2019-11-03] MEDS: Amiodarone 200 MG TAB PO ×2 (07:56→19:45)
[2019-11-03] MEDS: amLODIPine 10 MG TAB PO (07:56)
[2019-11-03] MEDS: Budesonide/Formoterol 160/4.5 6 GM 60 PUFF INH IH ×2 (08:20→19:45)
--- NOTE | 2019-11-03 09:22 | PT.INTREAT ---
Date of service: 11/03/19 Time of Service: 09:22 PT Notes Visit Reasons: AMBULATORY DYSFUNCTION 11/03/2019 SUBJECTIVE: Francois noting knee pain after our PT session today. States he slept well last night. OBJECTIVE: Supine in bed. Agreeable to PT session. DRESSING: Assist pt with pants. He is able to don his shirt independently. TRANSFERS Sit to stand: SBA Stand to sit: SBA GAIT Device: FWW Weight bearing: Full Assist: CGA Distance: 50'+100'+50' Deviation: 2 sit rest breaks. ASSESSMENT: Pt tolerating Pt well this morning. Continues to require significant amount of verbal cueing for walker management and safety with transfers. He does appear to be getting stronger physically but will require constant verbal cues. PLAN: Continue current POC. Treatment time: 15 Lisa Fu PTA
[2019-11-03] MEDS: Lidocaine 5% Patch 1 PATCH TP (09:57)
[2019-11-03 15:40] VITALS: BP 119/72; PULSE 62; RESP 20; TEMP 36.6; O2SAT 94
[2019-11-03 19:43] VITALS: BP 135/81; PULSE 68
[2019-11-03] MEDS: Atorvastatin 40 MG TAB PO (19:45)
[2019-11-03] MEDS: Amitriptyline 50 MG TAB 100 MG PO (21:45)
[2019-11-03] MEDS: Lidocaine Patch Removal 1 EACH TP (21:46)
[2019-11-04 00:42] VITALS: BP 112/68; PULSE 62; RESP 21; TEMP 37.5; O2SAT 94
[2019-11-04 06:59] LABS: INR 3.3 (0.9-1.1); Prothrombin Time 31.8 sec (9.3-11.0)
[2019-11-04 07:50] VITALS: BP 113/71; PULSE 56; RESP 21; TEMP 36.5; O2SAT 91
[2019-11-04] MEDS: Aspirin 81 MG CHEW PO (08:13)
[2019-11-04] MEDS: Furosemide 20 MG TAB PO (08:13)
[2019-11-04] MEDS: Donepezil 5 MG TAB 10 MG PO (08:13)
[2019-11-04] MEDS: metFORMIN 500 MG TAB PO ×2 (08:13→16:51)
[2019-11-04] MEDS: Potassium Chloride 10 MEQ CAPCR PO (08:14)
[2019-11-04] MEDS: Sertraline 50 MG TAB PO (08:14)
[2019-11-04] MEDS: Tamsulosin 0.4 MG CAPCR PO (08:14)
[2019-11-04] MEDS: Budesonide/Formoterol 160/4.5 6 GM 60 PUFF INH IH ×2 (08:27→20:52)
[2019-11-04] MEDS: amLODIPine 10 MG TAB PO (09:32)
[2019-11-04] MEDS: Metoprolol CR 100 MG TABCR PO ×2 (09:32→20:53)
[2019-11-04] MEDS: Amiodarone 200 MG TAB PO ×2 (09:32→20:53)
--- NOTE | 2019-11-04 10:13 | PTTR_ITS ---
Date of service: 11/04/19 Time of Service: 10:13 PT Notes Visit Reasons: AMBULATORY DYSFUNCTION 11/04/2019 SUBJECTIVE: Francois stating he had a good night. He does complain of left knee pain with ambulation. OBJECTIVE: Seated in recliner. Agreeable to PT treatment. TRANSFERS Sit to stand: SBA Stand to sit: SBA GAIT Device: FWW Weight bearing: Full Assist: CGA Distance: 50'x3 Deviation: Seated rest break x 3 ASSESSMENT: Continues to complain of left knee pain followed by LE fatigue du ring gait. Pt requires less cueing this morning for walker management and reaching for the chair with stand to sit transfers. PLAN: Continue current POC. Treatment time: 15' 97043 Lisa Fu LINUX UNIX ENGINEER
[2019-11-04] MEDS: Lidocaine 5% Patch 1 PATCH TP ×2 (10:39→10:40)
[2019-11-04] MEDS: Acetaminophen 325 MG TAB PO ×2 (12:24→17:48)
--- NOTE | 2019-11-04 12:49 | W.PM.PROGNOT ---
Date of Service Date of service: 11/04/19 Time of Service: 13:21 Assessment and Plan Assessment and plan (1) History of CVA (cerebrovascular accident): Start date: 11/04/19 Start time: 13:23 Status: Acute Assessment and plan: With residual L hemianopsia, LUE/LLE weakness and R-sided facial droop. Working with PT awaiting placement. Continue asa, working with PT. Monitor INR daily. On hold at this time for INR 3.3 (2) Ambulatory dysfunction: Start date: 11/04/19 Start time: 13:24 Status: Acute Assessment and plan: Continue in swing bed status and work with PT until able to go to [facility]. (3) Falls frequently: Start date: 11/04/19 Start time: 13:24 Status: Chronic Assessment and plan: See above (4) Mixed Alzheimer's and vascular dementia: Start date: 11/04/19 Start time: 13:24 Status: Chronic Assessment and plan: Moderate to advanced. Probably still has more than a year but less than 5 years to live. Not yet hospice eligible. Best scenario for him is to be socially engage, physically active, control his BP. Subjective Subjective Patient reports: other Interval history since last seen: Patient c/o knee pain, otherwise no complaints. He denies CP, SOB, n/v/d. Order lidoderm patch for pain. Exam Narrative Exam Narrative: Exam Narrative: General: Very pleasant middle-aged male, A&Ox3, sitting comfortably in a chair with an inclination to the right HEENT: EOMI, MMM Heart: RRR Lungs: CTAB Abdomen: soft, nontender, nondistended Extremities: RLE is slightly larger than left; no c/c Skin: dry and intact, bruising. Psych Mental Status: mental status grossly normal Speech and Movement: speech and movement normal Mood: congruent mood Affect: normal affect Objective Objective Clinical Data: Abnormal lab results 11/04/19 Range/Units 06:10 PT 31.8 H (9.3-11.0) sec INR 3.3 H (0.9-1.1) Vital Signs Temperature 36.5 C 11/04/19 07:50 Temperature Source Tympanic 11/04/19 07:50 Pulse 56 L 11/04/19 07:50 Pulse Rhythm Regular 11/04/19 04:05 Respiratory Rate 21 11/04/19 07:50 Respiratory Effort 11/04/19 04:05 Respiratory Depth Normal 11/04/19 04:05 Respiratory Pattern Normal 11/04/19 04:05 Blood Pressure 113/71 11/04/19 07:50 Pulse Oximetry 91 L 11/04/19 07:50 Oxygen Delivery Method Room Air 11/04/19 07:50 Oxygen Flow Rate 0 11/04/19 07:50 Pain Level 0 11/04/19 07:50 Intake & Output 11/03/19 11/04/19 11/04/19 23:59 11:59 23:59 Intake Total 600 / 840 740 / 740 Output Total 300 / 1125 1050 / 1050 Balance 300 / -285 -310 / -310 Intake: Oral 600 / 840 740 / 740 Output: Urine 300 / 1125 1050 / 1050 Other: Urine Color Yellow Yellow Urine Appearance Clear Clear Urine Odor Normal Voiding Methods Urinal Urinal Laboratory Results Plt Count 369 x1000/uL (130-400) 10/30/19 06:37 PT 31.8 sec (9.3-11.0) H 11/04/19 06:10 INR 3.3 (0.9-1.1) H 11/04/19 06:10
[2019-11-04 15:05] VITALS: BP 119/72; PULSE 64; RESP 23; TEMP 36.1; O2SAT 93
[2019-11-04 20:51] VITALS: BP 122/74; PULSE 62
[2019-11-04] MEDS: Atorvastatin 40 MG TAB PO (20:53)
[2019-11-04] MEDS: Amitriptyline 50 MG TAB 100 MG PO (20:53)
[2019-11-04] MEDS: Lidocaine Patch Removal 1 EACH TP (21:01)
[2019-11-04 23:04] VITALS: BP 110/64; PULSE 62; RESP 20; TEMP 36.4; O2SAT 96
[2019-11-05] MEDS: Acetaminophen 325 MG TAB PO ×4 (06:54→17:44)
[2019-11-05 06:56] LABS: INR 2.7 (0.9-1.1); Prothrombin Time 26.2 sec (9.3-11.0)
[2019-11-05] MEDS: Budesonide/Formoterol 160/4.5 6 GM 60 PUFF INH IH ×2 (07:34→20:26)
[2019-11-05 07:35] VITALS: BP 101/68; PULSE 73; RESP 20; TEMP 36.9; O2SAT 93
[2019-11-05] MEDS: Tamsulosin 0.4 MG CAPCR PO (08:28)
[2019-11-05] MEDS: Donepezil 5 MG TAB 10 MG PO (08:28)
[2019-11-05] MEDS: metFORMIN 500 MG TAB PO ×2 (08:28→17:28)
[2019-11-05] MEDS: Sertraline 50 MG TAB PO (08:28)
[2019-11-05] MEDS: amLODIPine 10 MG TAB PO (08:29)
[2019-11-05] MEDS: Aspirin 81 MG CHEW PO (08:29)
[2019-11-05] MEDS: Amiodarone 200 MG TAB PO ×2 (08:30→20:26)
[2019-11-05] MEDS: Metoprolol CR 100 MG TABCR PO ×2 (08:30→20:26)
[2019-11-05] MEDS: Furosemide 20 MG TAB PO (08:30)
[2019-11-05] MEDS: Potassium Chloride 10 MEQ CAPCR PO (08:30)
[2019-11-05] MEDS: Lidocaine 5% Patch 1 PATCH TP ×2 (09:57)
--- NOTE | 2019-11-05 10:00 | OT.INTREAT ---
Date of service: 11/05/19 Time of Service: 09:24 Occupational Therapy Notes Occupational Therapy Inpatient Treatment Note Date: 11/05/19 PRECAUTIONS: Fall, Standard SUBJECTIVE: Pt was sitting in chair when OT arrived. His was by his side and he was agreeable to OT session. OBJECTIVE: PAIN:no c/o pain VITALS: NT BATHING: Performed prior to OT arrival with nursing. DRESSING: Lower Extremity: Sitting in chair pt was able to mod (I) don and doff (B) socks with use of adaptive equipment with ideal technique. He did require min vc for placement of dressing stick on sock but was otherwise (I). ASSESSMENT/PLAN: Progress note with assessment of pts goals at next session. TREATMENT CODES/TIME: [id number], 15 minutes (09:24) Fanta Miranda OTR/[facility]
--- NOTE | 2019-11-05 11:57 | INPN_ITS ---
Date of service: 11/05/19 Time of Service: 11:57 PT Notes Visit Reasons: AMBULATORY DYSFUNCTION Inpatient Physical Therapy Progress Note Date: 11/05/2019 Dates of Service: 10/29/2019 through 11/05/2019 PRECAUTIONS: Fall. Standard. Activity as tolerated. SUBJECTIVE: Patient reports stiffness all over. No report of pain on the left hip and the knee throughout ambulation activity. OBJECTIVE : Patient continues to demonstrate contusions and abdominal and bilateral upper extremities PAIN: 0/10. BED MOBILITY/TRANSFERS Sit-stand: SBA Stand-sit: SBA Bed-Chair: CGA Chair-bed: CGA GAIT Assistive Device: FWW Weight bearing: FWB Assist: CGA Distance: 40 feet + 30 feet + 40 feet + 60 feet Deviation: Increased truncal list to the right. Continues to require moderate to maximal verbal cues for walker management specially during directional changes. Assessment: Pt is a 78-year-old male that presented to the ER on 10/25/2019 after falling while getting out his truck at the [facility]. He was admitted to the hospital with ambulatory dysfunction, frequent falls, bilateral pulmonary embolisms, history of CVA, and paroxysmal atrial fibrillation. He presents with impairment level findings and functional limitations as listed below. He continues to present as an increased falls risk as demonstrated by multiple cues for walker safety with ambulation, weakness of lower extremities, and decreased functional use of the left lower extremity. He continues to demonstrate minor visuospatial disorganization as demonstrated by his performance on the clock drawing test and left sided visual impairments. Patient's mobility level has remained the same for over a week now using the front wheeled walker with safety awareness continues to be impaired and remains at risk for falls. Patient continues to presents with clinical signs and symptoms consistent with current/admitting diagnoses that have resulted to mobility limitations, gait instability, generalized weakness, and impairment of motor control as demonstrated by the following impairment level findings: 1. Decreased strength to B LE major muscle groups 2. Observable muscle atrophy of the left lower extremity 3. Impaired standing balance 4. Impaired activity tolerance 5. Impaired vision 6. Disorganized visuospatial awareness 7. Impaired cognitive function Impairments continue to contributE to the following functional limitations: 1. Dependent bed mobility skills 2. Increased dependence with transfers 3. Inability to safely ambulate without assistive device and physical assistance 4. Increase completion time for mobility ADL performance 5. Increased fall risk 6. Inability to negotiate steps alone safely Patient is [place] a 96390 moderate complexity based on the following: History: Pt presents with impairment level findings and functional limitations as listed above. AM-PAC raw score of 18 with 47% deficit. Examination: Demonstrable impairment in strength, balance, and range of motion with underlying impairments and functional limitations as documented above Presentation: Evolving Decision Makin moderate complexity Goals: Goals X1 week 1. Supine-Sit independent. CONTINUE and downgrade goal to supervision assist 2. Sit-Supine independent. CONTINUE and downgrade goal to supervision assist 3. Sit-Stand independent. CONTINUE and downgrade goal to supervision assist 4. Stand-Sit independent. CONTINUE and downgrade goal to supervision assist 5. Bed-Chair independent. CONTINUE and downgrade goal to supervision assist 6. Chair-Bed independent. CONTINUE and downgrade goal to supervision assist 7. Independent gait on level surface with use of least restrictive device for at least 100 feet without report of nor dyspnea or fatigue. CONTINUE and downgrade goal to SBA. 8. Independent stair negotiation while holding onto bilateral rails for at least 5 steps without report of pain nor dyspnea CONTINUE. CONTINUE and downgrade goal to SBA. 9. Independent with home exercise program. CONTINUE and downgrade goal to SBA. 10. Good static and dynamic standing balance/tolerance. CONTINUE Plan of Care/Treatment Plan: Decrease to 1 time a day for the next 2 to 3 days with a tentative discharge on Thursday, November 07, 2019. Plan of care has been reviewed with the CIVIL ENGINEERING SPECIALIST providing the service under Physical Therapy direction. Initiate Physical Therapy intervention for strengthening, bed mobility, transfers, gait, stairs, balance training, use of assistive device. DISCHARGE RECOMMENDATIONS: Pt will benefit from detention facility plac ement versus 28/03 care at home for continued skilled physical therapy services in order to progress mobility level, strength, and balance in preparation for a safe discharge to home. He would benefit from a bariatric front-wheeled walker for improved safety with ambulation. TREATMENT CODE/TIME: [id number] x 15 minutes beginning at 11:57 A.M. Thank you very much for this referral. Yesika Solano PT, DPT, CLT [facility] [place], [place] About you Aileen what they think
--- NOTE | 2019-11-05 14:11 | W.NUTRFU ---
Date of service: 11/05/19 Time of Service: 14:11 Nutritional Follow up NOTE: Met with Francois mena. Noted 15 lbs weight loss since admission related to fluid loss, as meeting 100% nutrient and fluid needs by mouth. Reviewed optimal diet for weight loss and Vit K maintenance level while on coumadine. Does not eat leafy greens at home, reviewed Vit K sources, provided educational material and contact information for follow up if needed. Time Spent in Nutritional Counseling and Treatment: 15 min spent face to face
[2019-11-05 16:40] VITALS: BP 112/67; PULSE 56; RESP 20; TEMP 36.7; O2SAT 93
[2019-11-05] MEDS: Atorvastatin 40 MG TAB PO (20:26)
[2019-11-05 20:27] VITALS: BP 111/67; PULSE 60; RESP 18; TEMP 36.6; O2SAT 93
[2019-11-05] MEDS: Amitriptyline 50 MG TAB 100 MG PO (21:53)
[2019-11-05] MEDS: Patch Removal 1 EACH TP (21:55)
[2019-11-05] MEDS: Lidocaine Patch Removal 1 EACH TP (21:56)
[2019-11-06] MEDS: Acetaminophen 325 MG TAB PO ×4 (00:54→17:45)
[2019-11-06 04:41] VITALS: BP 127/80; PULSE 57; RESP 19; TEMP 36.7; O2SAT 94
[2019-11-06 07:48] LABS: INR 2.1 (0.9-1.1)
[2019-11-06] MEDS: Budesonide/Formoterol 160/4.5 6 GM 60 PUFF INH IH ×2 (07:51→19:32)
[2019-11-06 07:57] VITALS: BP 126/76; PULSE 57; RESP 20; TEMP 36.9; O2SAT 93
[2019-11-06] MEDS: Donepezil 5 MG TAB 10 MG PO (08:33)
[2019-11-06] MEDS: Tamsulosin 0.4 MG CAPCR PO (08:33)
[2019-11-06] MEDS: Potassium Chloride 10 MEQ CAPCR PO (08:34)
[2019-11-06] MEDS: amLODIPine 10 MG TAB PO (08:34)
[2019-11-06] MEDS: metFORMIN 500 MG TAB PO ×2 (08:34→17:46)
[2019-11-06] MEDS: Sertraline 50 MG TAB PO (08:34)
[2019-11-06] MEDS: Furosemide 20 MG TAB PO (08:34)
[2019-11-06] MEDS: Aspirin 81 MG CHEW PO (08:34)
[2019-11-06] MEDS: Metoprolol CR 100 MG TABCR PO ×2 (08:39→19:32)
[2019-11-06] MEDS: Amiodarone 200 MG TAB PO ×2 (08:39→19:32)
[2019-11-06] MEDS: Normal Saline Flush 10 ML SYR IVP (08:39)
--- NOTE | 2019-11-06 09:11 | PT.INTREAT ---
Date of service: 11/06/19 Time of Service: 09:11 PT Notes Visit Reasons: AMBULATORY DYSFUNCTION 11/06/2019 SUBJECTIVE: Francois stating he had a good night. He complains of some knee pain with gait. OBJECTIVE: Seated in his chair. Agreeable to PT treatment. TRANSFERS Sit to stand: SBA Stand to sit: SBA with verbal cues GAIT Device: FWW Weight bearing: Full Assist: CGA Distance: 125' with two sit rest breaks Deviation: Step to pattern, ambulatory dysfunction ASSESSMENT: Gait continues to be limited due to left knee pain. He appears to be approaching baseline level of function with minimal changes over the last few days. He will continue to require cueing and supervision with ambulation to decrease fall risk. PLAN: Continue 1x per day. Treatment time: 20' [id number] Lisa Fu PTA
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
[2019-11-06] MEDS: Lidocaine 5% Patch 1 PATCH TP ×2 (10:00)
[2019-11-06 15:31] VITALS: BP 115/68; PULSE 64; RESP 18; TEMP 36.8; O2SAT 93
[2019-11-06] MEDS: Atorvastatin 40 MG TAB PO (19:32)
[2019-11-06] MEDS: Amitriptyline 50 MG TAB 100 MG PO (21:59)
[2019-11-07] MEDS: Acetaminophen 325 MG TAB PO ×4 (01:15→17:08)
[2019-11-07 01:23] VITALS: BP 121/78; PULSE 58; RESP 16; TEMP 36.5; O2SAT 93
[2019-11-07 07:18] LABS: INR 1.9 (0.9-1.1); Prothrombin Time 18.6 sec (9.3-11.0)
[2019-11-07 07:47] VITALS: BP 116/73; PULSE 60; RESP 20; TEMP 36.5; O2SAT 92
[2019-11-07] MEDS: Budesonide/Formoterol 160/4.5 6 GM 60 PUFF INH IH ×2 (08:42→20:56)
--- NOTE | 2019-11-07 09:47 | OT.INTREAT ---
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 He reports that he is agreeable to OT session and notes that he is doing well today. OBJECTIVE: PAIN:no c/o pain BATHING: In shower seated on shower seat Upper Body: (I) face, (B) UE, abdomen, hair with min vc and (A) for water temperature. Lower Body: (I) osbaldo area, (B) LE to (B) feet. Pt was able to wash his (B) (I) today. DRESSING: In seated position Upper Extremity: With set up (A) for shirt placing shirt face down on pts lap he is (I) don and doffing t-shirt. Lower Extremity: (I) with donning underwear over (R) foot, requires min (A) for (L) LE, mod (A) donning pants over (B) feet. In standing pt can (I) pull underwear and pants up above knees. GROOMING: Seated position (I) with brushing hair ASSESSMENT/PLAN: Pt is an active participant in OT session. He has been able to demonstrate a significant increase his bathing and dressing routines. Functionally pt requires vc due to cognitive/dementia but when given vc he was able to perform without (A). Pt is plateauing in terms of his functional (I). OT will assess pts functional (I) in terms of baseline level of progress and anticipate discharge within the next 2 days. TREATMENT CODES/TIME: [id number], 25 minutes (08:45) Fanta Miranda OTR/[facility]
[2019-11-07] MEDS: Lidocaine 5% Patch 1 PATCH TP ×2 (10:26)
[2019-11-07] MEDS: Amiodarone 200 MG TAB PO ×2 (10:27→20:55)
[2019-11-07] MEDS: Sertraline 50 MG TAB PO (10:27)
[2019-11-07] MEDS: Metoprolol CR 100 MG TABCR PO ×2 (10:27→20:55)
[2019-11-07] MEDS: amLODIPine 10 MG TAB PO (10:28)
[2019-11-07] MEDS: Furosemide 20 MG TAB PO (10:28)
[2019-11-07] MEDS: Potassium Chloride 10 MEQ CAPCR PO (10:29)
[2019-11-07] MEDS: Aspirin 81 MG CHEW PO (10:29)
[2019-11-07] MEDS: Donepezil 5 MG TAB 10 MG PO (10:29)
[2019-11-07] MEDS: metFORMIN 500 MG TAB PO ×2 (10:29→17:08)
[2019-11-07] MEDS: Tamsulosin 0.4 MG CAPCR PO (10:29)
[2019-11-07 16:52] VITALS: BP 117/69; PULSE 60; RESP 18; TEMP 36.3; O2SAT 97
[2019-11-07] MEDS: Patch Removal 1 EACH TP (20:02)
[2019-11-07] MEDS: Lidocaine Patch Removal 1 EACH TP (20:03)
[2019-11-07] MEDS: Atorvastatin 40 MG TAB PO (20:55)
[2019-11-07] MEDS: Warfarin 5 MG TAB PO (20:57)
[2019-11-07] MEDS: Amitriptyline 50 MG TAB 100 MG PO (22:14)
[2019-11-08 00:26] VITALS: BP 118/69; PULSE 60; RESP 19; TEMP 36.6; O2SAT 92
[2019-11-08] MEDS: Acetaminophen 325 MG TAB PO ×4 (00:44→18:39)
[2019-11-08 04:16] VITALS: BP 122/73; PULSE 55; RESP 18; TEMP 36.4; O2SAT 92
[2019-11-08 06:54] LABS: INR 1.9 (0.9-1.1); Prothrombin Time 18.6 sec (9.3-11.0)
[2019-11-08 07:22] VITALS: BP 116/72; PULSE 60; RESP 17; TEMP 36.5; O2SAT 97
[2019-11-08] MEDS: Potassium Chloride 10 MEQ CAPCR PO (08:12)
[2019-11-08] MEDS: Furosemide 20 MG TAB PO (08:12)
[2019-11-08] MEDS: amLODIPine 10 MG TAB PO (08:12)
[2019-11-08] MEDS: Donepezil 5 MG TAB 10 MG PO (08:12)
[2019-11-08] MEDS: Metoprolol CR 100 MG TABCR PO ×2 (08:12→19:45)
[2019-11-08] MEDS: Sertraline 50 MG TAB PO (08:12)
[2019-11-08] MEDS: Amiodarone 200 MG TAB PO ×2 (08:12→19:44)
[2019-11-08] MEDS: Aspirin 81 MG CHEW PO (08:12)
[2019-11-08] MEDS: metFORMIN 500 MG TAB PO ×2 (08:12→17:04)
[2019-11-08] MEDS: Tamsulosin 0.4 MG CAPCR PO (08:12)
[2019-11-08] MEDS: Budesonide/Formoterol 160/4.5 6 GM 60 PUFF INH IH ×2 (08:17→19:46)
--- NOTE | 2019-11-08 08:51 | PDOC.CMACT ---
Care Management Activity Note Francois enjoys visiting with his who comes to see him almost daily, weather permitting. He enjoys watching television, visiting with staff including his one on one and ambulating through the hallways with support. Anticipate he will discharge on 11/12/19 with new VNA supports to include CFC attainment support and COA support for his and his .
--- NOTE | 2019-11-08 09:39 | OT.INTREAT ---
Date of service: 11/08/19 Time of Service: 08:40 Occupational Therapy Notes Occupational Therapy Inpatient Treatment Note Date: 11/08/19 PRECAUTIONS: Fall, Standard SUBJECTIVE: Pt was sitting in chair when OT arrived. He was agreeable to OT session. Pts was not present, and OT was not able to touch base with pt this morning. OBJECTIVE: PAIN:no c/o pain BATHING: sitting in chair Upper Body: (I) washing face, hands and (B) UE GROOMING: Sitting in chair pt was able to brush his teeth with min vc and tolerated this well. He requires min (A) with positioning of toothbrush in his hand. He went to bring toothbrush to mouth and brought toothbrush to [place] and required min vc for performance. ASSESSMENT/PLAN: OT left information in pts room for his on safety home check. OT was unable to speak with pts in person and will make contact with pts tomorrow morning to discuss any concerns she may have. OT feels that it is important for pt to have HH services when he returns home to (A) pt with ADLs/IADLs as well as support pts in caretaking roles that pt will require in his home environment. OT recommends that pt's family consider alarms for the home environment to alert family if pt gets up in the middle of the night. OT will discuss this with pts . Plan is to discharge pt on 11/09/19 from skilled OT services once OT is able to communicate with pts . TREATMENT CODES/TIME: [id number], 10 minutes (08:40) Fanta Miranda OTR/[facility]
[2019-11-08] MEDS: Lidocaine 5% Patch 1 PATCH TP ×2 (10:17→10:18)
--- NOTE | 2019-11-08 12:01 | PT.INTREAT ---
PT Notes Visit Reasons: AMBULATORY DYSFUNCTION Inpatient Physical Therapy Treatment Note [facility] Date: 11/07/2019 SUBJECTIVE: Francois offers no complaints to me today. OBJECTIVE: [] BED MOBILITY/TRANSFERS Sit-stand: CGA/min A Stand-sit: CGA /min A GAIT Assistive Device: FWW Weight bearing: full Assist: CGA Distance: 100' Deviation: required several sitting resting breaks due to leg fatigue/ discomfort. ASSESSMENT: tolerated session fair. Cues for proper gait mechanics, making sure he stays close to his walker. Postural cues given. PLAN: continue PT POC. TREATMENT CODE/TIME: 20 min. [id number]
--- NOTE | 2019-11-08 17:56 | INDS_ITS ---
Date of service: 11/08/19 PT Notes Visit Reasons: AMBULATORY DYSFUNCTION Physical Therapy Inpatient Discharge Summary Date: 11/08/2019 Dates of Service: 10/29/2019 through 11/07/2019 This is a clinical summary of care provided on the duration of dates listed above. No charge was made in the completion of this documentation. PRECAUTIONS: Fall. Standard. Activity as tolerated. SUBJECTIVE: NT OBJECTIVE : NT PAIN: NT BED MOBILITY/TRANSFERS Sit-stand: CGA Stand-sit: CGA Bed-Chair: CGA Chair-bed: CGA GAIT Assistive Device: FWW Weight bearing: FWB Assist: CGA Distance: 100 feet with 4 rest breaks Deviation: Continued truncal list to the right. Continues to require moderate to maximal verbal cues for walker management specially during directional changes. Assessment: Pt is a 78-year-old male that presented to the ER on 10/25/2019 after falling while getting out his truck at the [facility]. He was admitted to the hospital with ambulatory dysfunction, frequent falls, bilateral pulmonary embolisms, history of CVA, and paroxysmal atrial fibrillation. He presents with impairment level findings and functional limitations as listed below. He continues to present as an increased falls risk as demonstrated by multiple cues for walker safety with ambulation, weakness of lower extremities, and decreased functional use of the left lower extremity. He continues to demonstrate minor visuospatial disorganization as demonstrated by his performance on the clock drawing test and left sided visual impairments. Patient is now at highest functional mobility level requiring minimal assist with wheelchair follow for level surface ambulation distance of beyond 30 feet. Patient continues to present with clinical signs and symptoms consistent with current/admitting diagnoses that have resulted to mobility limitations, gait instability, generalized weakness, and impairment of motor control as demonstrated by the following impairment level findings: 1. Decreased strength to B LE major muscle groups 2. Observable muscle atrophy of the left lower extremity 3. Impaired standing balance 4. Impaired activity tolerance 5. Impaired vision 6. Disorganized visuospatial awareness 7. Impaired cognitive function Impairments continue to contributE to the following functional limitations: 1. Dependent bed mobility skills 2. Increased dependence with transfers 3. Inability to safely ambulate without assistive device and physical assistance 4. Increase completion time for mobility ADL performance 5. Increased fall risk 6. Inability to negotiate steps alone safely Goals: Goals X1 week 1. Supine-Sit independent. CONTINUE and downgrade goal to supervision assist. NOT MET at time of discharge. 2. Sit-Supine independent. CONTINUE and downgrade goal to supervision assist. NOT MET at time of discharge. 3. Sit-Stand independent. CONTINUE and downgrade goal to supervision assist. NOT MET at time of discharge. 4. Stand-Sit independent. CONTINUE and downgrade goal to supervision assist. NOT MET at time of discharge. 5. Bed-Chair independent. CONTINUE and downgrade goal to supervision assist. NOT MET at time of discharge. 6. Chair-Bed independent. CONTINUE and downgrade goal to supervision assist. NOT MET at time of discharge. 7. Independent gait on level surface with use of least restrictive device for at least 100 feet without report of nor dyspnea or fatigue. CONTINUE and downgrade goal to SBA. NOT MET at time of discharge. 8. Independent stair negotiation while holding onto bilateral rails for at least 5 steps without report of pain nor dyspnea CONTINUE. CONTINUE and downgrade goal to SBA. NOT MET at time of discharge. 9. Independent with home exercise program. CONTINUE and downgrade goal to SBA. NOT MET at time of discharge. 10. Good static and dynamic standing balance/tolerance. CONTINUE. NOT MET at time of discharge. DISCHARGE RECOMMENDATIONS: Continue with short distance ambulation of up to 30 feet with minimal assist of 1 nursing staff and wheelchair follow of the second nursing staff at least once a day. Pt will benefit from shelter facility placement versus 28/03 care at home for continued skilled physical therapy services in order to progress mobility level, strength, and balance in preparation for a safe discharge to home. He would benefit from a bariatric front-wheeled walker for improved safety with ambulation. TREATMENT CODE/TIME: NC. Thank you very much for this referral. Yesika Solano PT, DPT, CLT [facility] [place], [place] About you Aileen what they think
[2019-11-08] MEDS: Amitriptyline 50 MG TAB 100 MG PO (19:44)
[2019-11-08] MEDS: Warfarin 5 MG TAB PO (19:45)
[2019-11-08] MEDS: Atorvastatin 40 MG TAB PO (19:45)
[2019-11-08] MEDS: Patch Removal 1 EACH TP (23:18)
[2019-11-08] MEDS: Lidocaine Patch Removal 1 EACH TP (23:18)
[2019-11-09 02:23] VITALS: BP 133/75; PULSE 57; RESP 17; TEMP 36.2; O2SAT 92
[2019-11-09] MEDS: Acetaminophen 325 MG TAB PO ×3 (05:17→17:50)
[2019-11-09 06:57] LABS: INR 2.1 (0.9-1.1); Prothrombin Time 20.5 sec (9.3-11.0)
[2019-11-09 07:25] VITALS: BP 132/74; PULSE 55; RESP 20; TEMP 36.6; O2SAT 93
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
[2019-11-09] MEDS: Budesonide/Formoterol 160/4.5 6 GM 60 PUFF INH IH ×2 (08:30→20:30)
[2019-11-09] MEDS: Amiodarone 200 MG TAB PO ×2 (08:33→20:30)
[2019-11-09] MEDS: Donepezil 5 MG TAB 10 MG PO (08:33)
[2019-11-09] MEDS: Sertraline 50 MG TAB PO (08:33)
[2019-11-09] MEDS: Furosemide 20 MG TAB PO (08:33)
[2019-11-09] MEDS: metFORMIN 500 MG TAB PO ×2 (08:33→16:26)
[2019-11-09] MEDS: Aspirin 81 MG CHEW PO (08:33)
[2019-11-09] MEDS: Metoprolol CR 100 MG TABCR PO ×2 (08:33→20:28)
[2019-11-09] MEDS: Potassium Chloride 10 MEQ CAPCR PO (08:33)
[2019-11-09] MEDS: amLODIPine 10 MG TAB PO (08:33)
[2019-11-09] MEDS: Tamsulosin 0.4 MG CAPCR PO (08:33)
[2019-11-09] MEDS: Lidocaine 5% Patch 1 PATCH TP ×2 (09:13)
[2019-11-09 16:24] VITALS: BP 112/65; PULSE 66; RESP 20; TEMP 37; O2SAT 94
[2019-11-09] MEDS: Atorvastatin 40 MG TAB PO (20:29)
[2019-11-09] MEDS: Amitriptyline 50 MG TAB 100 MG PO (20:29)
[2019-11-09] MEDS: Lidocaine Patch Removal 1 EACH TP (20:30)
[2019-11-09] MEDS: Warfarin 5 MG TAB PO (20:30)
[2019-11-09] MEDS: Patch Removal 1 EACH TP (20:30)
[2019-11-10 01:48] VITALS: BP 148/78; PULSE 68; RESP 20; TEMP 36.9; O2SAT 91
[2019-11-10] MEDS: Acetaminophen 325 MG TAB PO ×3 (05:12→17:34)
[2019-11-10 07:45] LABS: INR 2.2 (0.9-1.1); Prothrombin Time 21.9 sec (9.3-11.0)
[2019-11-10 07:50] VITALS: BP 120/77; PULSE 55; RESP 16; TEMP 36.4; O2SAT 93
[2019-11-10] MEDS: Budesonide/Formoterol 160/4.5 6 GM 60 PUFF INH IH ×2 (08:02→19:51)
[2019-11-10] MEDS: amLODIPine 10 MG TAB PO (08:40)
[2019-11-10] MEDS: Furosemide 20 MG TAB PO (08:41)
[2019-11-10] MEDS: Donepezil 5 MG TAB 10 MG PO (08:41)
[2019-11-10] MEDS: Aspirin 81 MG CHEW PO (08:42)
[2019-11-10] MEDS: Tamsulosin 0.4 MG CAPCR PO (08:42)
[2019-11-10] MEDS: Potassium Chloride 10 MEQ CAPCR PO (08:42)
[2019-11-10] MEDS: Sertraline 50 MG TAB PO (08:42)
[2019-11-10] MEDS: metFORMIN 500 MG TAB PO ×2 (08:42→17:33)
[2019-11-10] MEDS: Amiodarone 200 MG TAB PO ×2 (08:42→19:50)
[2019-11-10] MEDS: Lidocaine 5% Patch 1 PATCH TP ×2 (09:55→09:56)
[2019-11-10 15:45] VITALS: BP 121/70; PULSE 66; RESP 21; TEMP 36.5; O2SAT 94
[2019-11-10 19:26] VITALS: BP 143/76; PULSE 70; RESP 18; TEMP 36.8; O2SAT 93
[2019-11-10] MEDS: Warfarin 5 MG TAB PO (19:50)
[2019-11-10] MEDS: Amitriptyline 50 MG TAB 100 MG PO (19:50)
[2019-11-10] MEDS: Atorvastatin 40 MG TAB PO (19:50)
[2019-11-10] MEDS: Metoprolol CR 100 MG TABCR PO (19:51)
[2019-11-10] MEDS: Lidocaine Patch Removal 1 EACH TP (22:20)
[2019-11-10] MEDS: Patch Removal 1 EACH TP (22:20)
[2019-11-11 03:48] VITALS: BP 138/78; PULSE 68; RESP 17; TEMP 37.2; O2SAT 94
[2019-11-11] MEDS: Acetaminophen 325 MG TAB PO ×4 (06:52→23:51)
[2019-11-11 07:22] LABS: INR 2.5 (0.9-1.1); Prothrombin Time 24.2 sec (9.3-11.0)
[2019-11-11 07:46] VITALS: BP 121/76; PULSE 59; RESP 15; TEMP 36.3; O2SAT 92
[2019-11-11] MEDS: Budesonide/Formoterol 160/4.5 6 GM 60 PUFF INH IH ×2 (07:56→20:38)
[2019-11-11] MEDS: Potassium Chloride 10 MEQ CAPCR PO (08:00)
[2019-11-11] MEDS: Aspirin 81 MG CHEW PO (08:01)
[2019-11-11] MEDS: Furosemide 20 MG TAB PO (08:01)
[2019-11-11] MEDS: Tamsulosin 0.4 MG CAPCR PO (08:01)
[2019-11-11] MEDS: Sertraline 50 MG TAB PO (08:03)
[2019-11-11] MEDS: metFORMIN 500 MG TAB PO ×2 (08:04→16:29)
[2019-11-11] MEDS: Amiodarone 200 MG TAB PO ×2 (08:04→20:37)
[2019-11-11] MEDS: Donepezil 5 MG TAB 10 MG PO (08:04)
[2019-11-11] MEDS: amLODIPine 10 MG TAB PO (08:19)
[2019-11-11 08:23] VITALS: O2SAT 99
[2019-11-11] MEDS: Lidocaine 5% Patch 1 PATCH TP ×2 (10:25→10:26)
--- NOTE | 2019-11-11 10:58 | W.DIABETESNO ---
Date of service: 11/11/19 Time of Service: 10:58 Diabetes Note NOTE: Follow up review of chart and visit iwth Mr. Davis who is hospitalized on swing bed for CVA and mobility concerns. He is newly diagnosed without diabetes medications. A1c 6.6 BMI 35 BLood sugars here at goal 99-108 eating 100% of his meals with ~50grams carbohydrate. Met with him Tuesday to review his diagnosis. Given his co-morbidities and his excellent glycemic control and reasonable carbohydrate intake here, and the plan for placement, no intervention at this time. Await PCP referral for intervention when appropriate. Will continue to follow blood sugars and am available as needed during htis hospitalization. Time Spent in Nutritional Counseling and Treatment: 5 minutes face to face
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
[2019-11-11 13:22] VITALS: BP 112/69; BP 118/68; BP 121/73; PULSE 69; PULSE 78; PULSE 79
--- NOTE | 2019-11-11 13:24 | CMPROGNOTE_ITS ---
Care Management Progress Note Anticipate Francois will discharge on 11/12/19 with new VNA supports; RN/PT/OT/HAZARDOUS MATERIAL SPECIALIST to include CFC attainment support and COA support for his and his to connect with Alzheimer's support and monitoring equipment. [facility] notified of discharge planning on 11/09/19, COA notified 11/11/19.
--- NOTE | 2019-11-11 13:46 | PDOC.HHF2F ---
Home Health Certification Home Health Certification: 1. Encounter Date and Reason I certify that MARY SAGASTUME was seen by Fe Reid on 11/11/19 and that I had a [id number] encounter with this patient that meets the physician face to face encounter requirements. 2. Clinical Findings Supporting Skilled Need and Homebound Status I certify that home health services are medically necessary, include either intermittent detention and/or physical/speech therapy, and that this patient is homebound in that absences from the home require considerable and taxing effort and are infrequent or of short duration, or are attributable to the need to receive medical care. [X] (a) Attached documentation from encounter provides clinical findings supporting skilled need and homebound status (including what assistance patient requires to leave the home). The encounter with the patient was in whole, or in part, for the following medical condition, which is the primary reason for home health care: AMBULATORY DYSFUNCTION Fpc: Patient would benefit from nursing services for medication administration, adls, etc. Physical Therapy: Patient would benefit from PT/OT to increase gait stability, balance and ADL's Speech Therapy: Homebound: Unable to leave home without assistance 3. Certification and Authentication I certify that I composed the above information based on my clinical judgement relating to this patient's medical condition and, if applicable, clinical findings communicated to me by the NPP or inpatient physician who performed the Home Health Referral. All further orders will be obtained through __Hoa Banegas (Community Based Physician - PCP)
[2019-11-11 19:29] VITALS: BP 119/72; PULSE 60; RESP 16; TEMP 37; O2SAT 92
[2019-11-11] MEDS: Metoprolol CR 100 MG TABCR PO (20:37)
[2019-11-11] MEDS: Warfarin 5 MG TAB PO (20:37)
[2019-11-11] MEDS: Atorvastatin 40 MG TAB PO (20:37)
[2019-11-11] MEDS: Amitriptyline 50 MG TAB 100 MG PO (21:56)
[2019-11-11] MEDS: Lidocaine Patch Removal 1 EACH TP (21:57)
[2019-11-11] MEDS: Patch Removal 1 EACH TP (21:58)
--- NOTE | 2019-11-12 06:07 | NUR.NOTE ---
Nursing Note: This nurse has been unable to round on this patient due to 1:1 care for another patient. Charge nurse aware.
[2019-11-12] MEDS: Acetaminophen 325 MG TAB PO ×2 (06:29→11:10)
[2019-11-12 06:48] LABS: Prothrombin Time 27.9 sec (9.3-11.0)
[2019-11-12 06:49] LABS: INR 2.8 (0.9-1.1)
[2019-11-12 07:55] VITALS: BP 110/68; PULSE 65; RESP 18; TEMP 36.4; O2SAT 96
[2019-11-12] MEDS: Budesonide/Formoterol 160/4.5 6 GM 60 PUFF INH IH (07:59)
[2019-11-12] MEDS: Potassium Chloride 10 MEQ CAPCR PO (08:03)
[2019-11-12] MEDS: metFORMIN 500 MG TAB PO (08:04)
[2019-11-12] MEDS: Tamsulosin 0.4 MG CAPCR PO (08:04)
[2019-11-12] MEDS: Sertraline 50 MG TAB PO (08:04)
[2019-11-12] MEDS: Metoprolol CR 100 MG TABCR PO (08:04)
[2019-11-12] MEDS: amLODIPine 10 MG TAB PO (08:04)
[2019-11-12] MEDS: Aspirin 81 MG CHEW PO (08:04)
[2019-11-12] MEDS: Furosemide 20 MG TAB PO (08:05)
[2019-11-12] MEDS: Donepezil 5 MG TAB 10 MG PO (08:06)
[2019-11-12] MEDS: Amiodarone 200 MG TAB PO (08:06)
[2019-11-12] MEDS: Lidocaine 5% Patch 1 PATCH TP ×2 (09:04→09:06)
--- NOTE | 2019-11-12 14:57 | PDOC.CMDIS ---
- If Service Date Differs Date of service: 11/12/19 Time of Service: 14:59 LACE Index Scoring Tool - Questions: Length of Stay (in days): 14 or more Acuity (Admit via E.D.?): Yes Comorbidities: Dementia E.D. Visits: 1 - Answers: Total Score: 14 Risk of Readmission: High Risk Care Management Discharge Reason for Hospitalization: Weakness and falls Discharge Plan: Francois is being discharged home today with his spouse. He will have new home health nursing, PT, OT and [employer]MER, a referral has been faxed to [facility] for services and request for assistance with resouces related to dementia. CM contacted [facility], and [facility] and [facility] both have Francois on their waiting list for placement. The facilities will reach out to Francois and his family when they have an opening. Francois's m[facility] Medicaid is pending. CM faxed signed discharged orders to [facility]. Transportation to be provided by spouse. Patient/Family Education Needs: Discharge education, limitations and follow up plan of care includng ask me three. Services Needed at Discharge: Home Health Care Services, Occupational Therapy, Physical Therapy
--- NOTE | 2019-11-16 13:24 | PDOC.CMPRO ---
- If Service Date Differs Date of service: 11/16/19 Time of Service: 13:24 Care Management Progress Note CM spoke with Francois's yesterday. She reports he is doing well but asked if he could get assistance with showering. Orders were put in for nursing, physical and speech therapy through [facility], but not for an aide at the time of discharge from [facility]. ROSSI calls [facility] today and they are agreeable to providing Francois with an aide to assist with showering. They will forward the necessary paperwork to Francois's PCP and ask that it be completed. The aide will begin to work with the family next week.
== END 2019-11-12 14:43 | disposition home or self-care (01) | DRG 57 ==
PROVIDERS: Family Medicine; General Practice; Nurse Practitioner Family; Admitting Provider Internal Medicine; PCP Family Medicine; Visit Provider Internal Medicine
DX: I69.354 Hemiplegia and hemiparesis following cerebral infarction affecting left non-dominant side (principal); G91.8 Other hydrocephalus; H53.462 Homonymous bilateral field defects, left side; I69.392 Facial weakness following cerebral infarction; Z91.81 History of falling; G30.9 Alzheimer's disease, unspecified; F02.80 Dementia in other diseases classified elsewhere, unspecified severity, without behavioral disturbance, psychotic disturbance, mood disturbance, and anxiety; F01.50 Vascular dementia, unspecified severity, without behavioral disturbance, psychotic disturbance, mood disturbance, and anxiety; I10 Essential (primary) hypertension; N40.0 Benign prostatic hyperplasia without lower urinary tract symptoms; I25.10 Atherosclerotic heart disease of native coronary artery without angina pectoris; Z95.1 Presence of aortocoronary bypass graft; Z95.2 Presence of prosthetic heart valve; Z79.01 Long term (current) use of anticoagulants; Z86.711 Personal history of pulmonary embolism; J44.9 Chronic obstructive pulmonary disease, unspecified; G89.29 Other chronic pain; F32.9 Major depressive disorder, single episode, unspecified; E78.00 Pure hypercholesterolemia, unspecified; G43.909 Migraine, unspecified, not intractable, without status migrainosus; I48.0 Paroxysmal atrial fibrillation; E53.8 Deficiency of other specified B group vitamins; E55.9 Vitamin D deficiency, unspecified; R27.0 Ataxia, unspecified; M79.605 Pain in left leg; M79.604 Pain in right leg
CPT/HCPCS: 36415; 94640; 97110; 97162; 97165; 97530; 97535; 99223; 99233; 99239; 99306; 85049; 85610; J1650; J3490

== ENCOUNTER 2020-05-26 14:32 | Inpatient (IN) | payer OTHER, MEDICAID, SELFPAY ==
[2020-05-26] VITALS (21 sets, daily range): BP systolic 121–168; BP diastolic 64–99; PULSE 61–74; RESP 20–22; TEMP 36–36.8; O2SAT 92–97
--- NOTE | 2020-05-26 14:30 | RT.EKG_ITS ---
APPROVED REPORT Exam: Resting ECG Patient Location: E HR:66 bpm ECG Measurements Heart Rate 66 AXIS NC 219 P 63 QRSd 107 QRS 52 QT 413 T 62 QTc 432 Conclusion Sinus rhythm...normal P axis, V-rate 60- 99 Borderline prolonged NC interval...NC >212, V-rate 50- 90 EKG shows sinus rhythm at 66, normal axis, nonspecific ST changes, no STEMI, nondiagnostic EKG Probable left atrial enlargement...P >50mS, <-0.10mV V1
--- NOTE | 2020-05-26 14:30 | DI.RAD_ITS ---
EXAM: XR PORTABLE CHEST AP CLINICAL HISTORY: AMS, frequent falls TECHNIQUE: 2D digital imaging was performed. COMPARISON: No exams were available for comparison FINDINGS: MEDIASTINUM: Normal. HEART: Normal. Aortic valvular replacement. PULMONARY VASCULATURE: Normal. LUNGS: Infiltrate in the right lung base. This may represent atelectasis or pneumonia. PLEURAL SPACE: Small right pleural effusion. No left pleural effusion or pneumothorax. BONE:Within normal limits for the patient's age. Status post sternotomy. OTHER FINDINGS:Normal. IMPRESSION: Right basilar infiltrate and small right pleural effusion. DATA REPOSITORY: RADIATION DOSE DELIVERED:
--- NOTE | 2020-05-26 15:00 | DI.CT_ITS ---
EXAM: CT HEAD WO CLINICAL HISTORY: trauma, frequent falls on blood thinner. TECHNIQUE: Imaging Protocol: Axial computed tomography images with coronal and sagittal reformatted images were created and reviewed COMPARISON: CT CT HEAD CERVICAL SPINE WO from 10/27/2019 FINDINGS: Ventricles and Extra axial spaces: Normal in size and morphology for the patient's age. Hemorrhage: None. Cerebral parenchyma: There are areas of decreased attenuation in the white matter most consistent wit h microvascular ischemic changes. There is an old right occipital infarct. No acute territorial inf arct. Midline shift: None. Brainstem/Cerebellum: Normal. Calvarium: Normal. Visualized Paranasal sinuses/Mastoids: Clear. Soft Tissues: Unremarkable. IMPRESSION: No acute intracranial process. RADIATION DOSE DELIVERED: 859.46mGy.cm Total DLP DATA REPOSITORY: All CT scans at this facility are submitted to the National Radiology Data Registry (NRDR) Dose Index Registry (DIR) with the [employer] (ACR). RADIATION OPTIMIZATION: All CT scans at this facility use at least one of these dose optimization te chniques: automated exposure control; mA and/or kV adjustment per patient size (includes targeted exa ms where dose is matched to clinical indication); or iterative reconstruction.
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
[2020-05-26 15:20] LABS: Abs Immature Grans 0.03 10^3/uL (0.0-0.06); Absolute Basophil Count 0.06 10^3/uL (0.0-0.2); Absolute Eosinophil Count 0.66 10^3/uL (0.0-0.7); Absolute Lymphocyte Count 0.99 10^3/uL (1.2-3.4); Absolute Monocyte Count 0.84 10^3/uL (0.1-0.8); Absolute Neutrophil Count 6.03 10^3/uL (1.2-6.7); Basophils % 0.7; Eosinophils % 7.7; HCT 44.2 % (40.0-50.0); HGB 13.9 g/dL (13.5-17.5); Immature Grans % 0.3; Lactate 1.2 mmol/L (0.6-1.4); Lymphocytes % 11.5; MCH 27.9 pg (27.0-33.0); MCHC 31.4 % (32.0-36.0); MCV 88.8 fL (80-95); MPV 9.1 fL (8.0-11.0); Monocytes % 9.8; Nucleated RBC 0 %; Platelet Count 337 10^3/uL (130-400); RBC 4.98 10^6/uL (4.36-5.78); RDW 14.2 % (11.8-14.1); WBC 8.61 10^3/uL (4.4-10.8)
[2020-05-26 15:58] LABS: INR 2.4 (0.9-1.1); Prothrombin Time 23.6 sec (9.3-11.0)
[2020-05-26 15:59] LABS: ALT 38 U/L (16-63); AST 34 U/L (15-37); Alkaline Phosphatase 87 U/L (46-116); Anion Gap 5.5 mmol/L (3-11); BUN 15 mg/dL (7-18); Bilirubin, Total 0.5 mg/dL (0.2-1.0); CO2 32.5 mmol/L (21.0-32.0); CREATININE 1.18 mg/dL (0.70-1.30); Calcium 9.2 mg/dL (8.5-10.1); Chloride 99 mmol/L (98-107); Glucose 144 mg/dL (74-106); NT-proBNP 216 pg/mL (<300); Potassium 3.7 mmol/L (3.5-5.1); Sodium 137 mmol/L (136-145); Total Protein 7.7 g/dL (6.4-8.2)
[2020-05-26 16:03] LABS: Troponin I < 0.05 ng/mL (<0.06)
[2020-05-26 16:29] LABS: Bilirubin Negative (Negative); Blood Trace-intact (Negative); Clarity Sl Cloudy (Clear); Glucose Negative (Negative); Ketones Negative (Negative); Leukocyte Esterase Negative (Negative); Nitrite Positive (Negative); Specific Gravity 1.015 (1.005-1.025); Urobilinogen 0.2 EU/dL (Up TO 0.2); pH 5.5 (5-8)
[2020-05-26 16:37] LABS: Bacteria Many HPF (Negative); C & S Indicated? Yes; Casts Negative LPF (Negative); Crystals Negative HPF (Negative); Epithelial Cells Negative HPF (Negative); Mucus Negative (Negative); Other Cells Negative (Negative); RBC Negative HPF (0-2)
[2020-05-26] MEDS: cefTRIAXone 2 GM/50 ML BAG IVPB (17:14)
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
[2020-05-26 20:04] LABS: Troponin I < 0.05 ng/mL (<0.06)
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
[2020-05-26] MEDS: Amiodarone 200 MG TAB PO (20:07)
[2020-05-26] MEDS: Metoprolol CR 100 MG TABCR PO (20:07)
[2020-05-26] MEDS: Cephalexin 500 MG CAP PO (20:07)
[2020-05-26] MEDS: Donepezil 5 MG TAB 10 MG PO (21:59)
[2020-05-26] MEDS: Atorvastatin 40 MG TAB PO (22:00)
[2020-05-26] MEDS: Tamsulosin 0.4 MG CAPCR PO (22:00)
[2020-05-26] MEDS: Amitriptyline 50 MG TAB PO (22:00)
[2020-05-26] MEDS: Warfarin 1 MG TAB 2 MG PO (22:06)
[2020-05-27] MEDS: Acetaminophen 325 MG TAB 650 MG PO ×2 (01:06→21:13)
[2020-05-27 03:00] VITALS: BP 123/80; PULSE 66; RESP 19; TEMP 36.4; O2SAT 91
[2020-05-27] MEDS: Budesonide/Formoterol 160/4.5 6 GM 60 PUFF INH IH ×2 (07:39→21:18)
[2020-05-27 07:40] VITALS: BP 138/84; PULSE 71; RESP 18; TEMP 36.5; O2SAT 90
[2020-05-27 07:43] LABS: INR 2.7 (0.9-1.1); Prothrombin Time 26.4 sec (9.3-11.0)
[2020-05-27 08:25] LABS: COVID-19 RT-PCR UVMMC Result Negative (Negative)
[2020-05-27] MEDS: Sertraline 50 MG TAB PO (08:31)
[2020-05-27] MEDS: Doxycycline Hyclate 100 MG CAP PO ×2 (08:31→19:20)
[2020-05-27] MEDS: Metoprolol CR 100 MG TABCR PO ×2 (08:31→19:20)
[2020-05-27] MEDS: Aspirin 81 MG CHEW PO (08:31)
[2020-05-27] MEDS: Furosemide 20 MG TAB PO (08:32)
[2020-05-27] MEDS: amLODIPine 10 MG TAB PO (08:32)
[2020-05-27] MEDS: Potassium Chloride 10 MEQ CAPCR PO (08:32)
[2020-05-27] MEDS: Amiodarone 200 MG TAB PO ×2 (08:32→19:20)
[2020-05-27] MEDS: metFORMIN 500 MG TAB PO ×2 (08:33→16:45)
[2020-05-27 09:27] VITALS: O2SAT 94
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
--- NOTE | 2020-05-27 10:08 | NS.NUTBLAN_ITS ---
Date of service: 05/27/20 Time of Service: 10:08 Nutritional Consult ASSESSMENT: 69 year old male admitted s/p frequent falls at home, with mixed Alzheimers Dx, h/o stroke with Dm2, COPD, CHF with 80 lbs weight loss in last 6 months. Typical weight 250 lbs, now at 178 lbs 6 months later. Currently following Diabetic Diet with 100% meal intake. Tolerating regular textures. BMI 22, on low end of normal. Met with Francois, he was slumped to one side of chair and not able to engage in conversation. At high nutritional risk in view of drastic weight loss of 80 lbs in last 6 months. Unclear of cause of weight loss but suspect due to recent stroke and decreased po intake. DM well c ontrolled on metformin. Estimated Needs: 2924-3503 kcal, 81-97 g protein, 2400 ml fluid. Meal plan provides: 1800 kcal, 60 grams protein. Will supplement diet to meet nutrient needs for weight maintenance. Francois is full code. NUTRITIONAL DIAGNOSIS: Severe malnutrition in context of chronic illness- vascular dementia, stroke INTERVENTION: Diabetic Diet- double protein servings at meals glucerna BID MONITORING AND EVALUATION: will monitor po intake, labs, weight consider MANAGER OF QUALITY consult Time Spent in Nutritional Counseling and Treatment: 15 min spent face to face
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
--- NOTE | 2020-05-27 11:47 | CHAPLAIN ---
Francois was up in a chair when I visited. He was pleasant and introduced himself. I explained my role and offered support. At one point during our conversation, Francois said his is here in the hospital, in another room somewhere. This isn't accurate as far as I know. Francois seems to be comfortable being here.
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
--- NOTE | 2020-05-27 12:44 | PTTR_ITS ---
Date of service: 05/27/20 Time of Service: 12:44 PT Notes Visit Reasons: AMBULATORY DYSFUNCTION Physical Therapy Inpatient Treatment Note Date: 05/27/2020 Precautions: Fall. Standard. Activity as tolerated. Subjective: Constantly demands to get of chair/bed. Objective: General Observation: Seated in recliner chair. Telemetry in place. Purplish discoloration on the L knee. Contusion on R arm. Genu valgum on R. Increased trunk lean on right Mental Status: Alert only to person. Able to follow one-step commands. Increased lean to R. Pain: None Bed Mobility/Transfers: Sit to stand moderate assist of 2 Stand to sit moderate assist of 2 Gait: deferred until x-ray results for L hip and knee rule out fracture and or any new injury Balance: Static Sitting: Fair Dynamic Sitting: Fair Static Standing: Unable Dynamic Standing: Unable Assessment: Francois demonstrates impaired safety awareness, restlessness, and a constant desire to get out of chair and of bed which has increased risk for falls. Will plan to wait for X-ray result for the knee and the hip prior to focusing on ambulation training in order to ensure safety. DISCHARGE RECOMMENDATIONS: Francois will require short-term SNF placement in order to regain highest functional mobility level, decrease fall risk, and reduce bu rden of caregiving at home. TREATMENT CODE/TIME: [id number] x 19 minutes beginning at 12:44 PM.
--- NOTE | 2020-05-27 13:11 | PGE_ITS ---
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 Cont Aricept. (2) Falls frequently: Status: Chronic Assessment and plan: Multiple factors likely involved; L knee deformity and instability as noted by as longstanding problem and noted by PT here. Also, h/o stroke with L sided deficits, UTI and PNA. PT xrays of knee. Treating UTI and PNA. (3) COPD (chronic obstructive pulmonary disease): Status: Chronic Assessment and plan: PRN albuterol Chronic supplemental O2 needs. (4) CAP (community acquired pneumonia): Status: Acute Assessment and plan: Cont ceftriaxone and doxycycline Clinically improved, stable. (5) Diabetes mellitus type 2 in nonobese: Status: Acute Assessment and plan: On Metformin and diabetic diet. Lab in AM; if glucose elevated to a concerning level will initiate FSBS. (6) UTI (urinary tract infection): Status: Acute Assessment and plan: Cx growing Gram neg rods. On Rocephin. No s/s of sepsis. (7) Hypertension: Status: Chronic Assessment and plan: Cont Amlodipine. Well controlled (8) Vitamin D deficiency: Status: Chronic Assessment and plan: Vit D level pending. Previously deficit. Not on supplementation at home Begin D3 supplementation at 1000 units daily and adjust acording to lab findings. Subjective Subjective Patient reports: no new complaints; denies diarrhea, nausea, vomiting, shortness of breath and fever Interval history since last seen: Pt is a poor historian / + dementia He did tear part of his R great toenail off this am when it caught on an object. He denies pain. Exam Const General: cooperative and no acute distress Nutritional Appearance: average body habitus Orientation: alert, oriented to person and confused Resp Effort & Inspection: normal respiratory effort and not labored Auscultation: clear to auscultation bilaterally and diminished lung sounds Cardio Rate: regular rate Rhythm: regular rhythm Heart Sounds: S1 normal and S2 normal GI Inspection: distended Palpation: soft and nontender Auscultation: normal bowel sounds Skin General skin exam: ecchymosis (R arm) Extrem General: no clubbing, cyanosis or edema Psych Appearance: grossly normal Speech and Movement: speech and movement normal Affect: blunted Attitude: cooperative Insight: limited Judgment: limited Objective Last Vital Signs Temp 36.5 C 05/27/20 07:40 Pulse 71 05/27/20 07:40 Resp 18 05/27/20 07:40 BP 138/84 05/27/20 07:40 Pulse Ox 94 05/27/20 09:27 Laboratory Results - last 24 hr 05/26/20 05/26/20 05/26/20 15:09 15:09 15:09 WBC 8.61 RBC 4.98 Hgb 13.9 Hct 44.2 MCV 88.8 MCH 27.9 MCHC 31.4 L RDW 14.2 H Plt Count 337 MPV 9.1 Immature Gran % 0.3 Neutrophils % 70.0 Lymphocytes % 11.5 Monocytes % 9.8 Eosinophils % 7.7 Basophils % 0.7 Nucleated RBC % 0 Absolute Neutrophils 6.03 Absolute Lymphocytes 0.99 L Absolute Monocytes 0.84 H Absolute Eosinophils 0.66 Absolute Basophils 0.06 PT INR VBG Lactate 1.2 Sodium 137 Potassium 3.7 Chloride 99 Carbon Dioxide 32.5 H Anion Gap 5.5 BUN 15 Creatinine 1.18 Estimated GFR/1.73 m2 >= 60.00 Glucose 144 H Calcium 9.2 Total Bilirubin 0.5 AST 34 ALT 38 Alkaline Phosphatase 87 Troponin I < 0.05 NT-Pro-B Natriuret Pep Total Protein 7.7 Albumin 3.0 L Urine Color Urine Clarity Urine pH Ur Specific Clancy Urine Protein Urine Ketones Urine Blood Urine Nitrite Urine Bilirubin Urine Urobilinogen Ur Leukocyte Esterase Urine RBC Urine WBC Ur Epithelial Cells Urine Crystals Urine Bacteria Urine Casts Urine Mucus Urine Other Ur Culture Indicated? Urine Glucose COVID-19 PCR Nasopharyn COVID-19 PCR Ref Test Perform Site 05/26/20 05/26/20 05/26/20 15:09 15:09 16:20 WBC RBC Hgb Hct MCV MCH MCHC RDW Plt Count MPV Immature Gran % Neutrophils % Lymphocytes % Monocytes % Eosinophils % Basophils % Nucleated RBC % Absolute Neutrophils Absolute Lymphocytes Absolute Monocytes Absolute Eosinophils Absolute Basophils PT 23.6 H INR 2.4 H VBG Lactate Sodium Potassium Chloride Carbon Dioxide Anion Gap BUN Creatinine Estimated GFR/1.73 m2 Glucose Calcium Total Bilirubin AST ALT Alkaline Phosphatase Troponin I NT-Pro-B Natriuret Pep 216 Total Protein Albumin Urine Color Yellow Urine Clarity Sl cloudy Urine pH 5.5 Ur Specific Clancy 1.015 Urine Protein Negative Urine Ketones Negative Urine Blood Trace-intact H Urine Nitrite Positive H Urine Bilirubin Negative Urine Urobilinogen 0.2 Ur Leukocyte Esterase Negative Urine RBC Negative Urine WBC 5-10 Ur Epithelial Cells Negative Urine Crystals Negative Urine Bacteria Many Urine Casts Negative Urine Mucus Negative Urine Other Negative Ur Culture Indicated? Yes Urine Glucose Negative COVID-19 PCR Nasopharyn COVID-19 PCR Ref Test Perform Site 05/26/20 05/26/20 05/27/20 17:18 19:38 06:28 WBC RBC Hgb Hct MCV MCH MCHC RDW Plt Count MPV Immature Gran % Neutrophils % Lymphocytes % Monocytes % Eosinophils % Basophils % Nucleated RBC % Absolute Neutrophils Absolute Lymphocytes Absolute Monocytes Absolute Eosinophils Absolute Basophils PT 26.4 H INR 2.7 H VBG Lactate Sodium Potassium Chloride Carbon Dioxide Anion Gap BUN Creatinine Estimated GFR/1.73 m2 Glucose Calcium Total Bilirubin AST ALT Alkaline Phosphatase Troponin I < 0.05 NT-Pro-B Natriuret Pep Total Protein Albumin Urine Color Urine Clarity Urine pH Ur Specific Clancy Urine Protein Urine Ketones Urine Blood Urine Nitrite Urine Bilirubin Urine Urobilinogen Ur Leukocyte Esterase Urine RBC Urine WBC Ur Epithelial Cells Urine Crystals Urine Bacteria Urine Casts Urine Mucus Urine Other Ur Culture Indicated? Urine Glucose COVID-19 PCR Negative Nasopharyn COVID-19 PCR Not Applicable Ref Test Perform Site [facility] lab
--- NOTE | 2020-05-27 13:48 | DI.RAD_ITS ---
EXAM: XR KNEE LT 4V AP,LAT,LUDWIN,PAT CLINICAL HISTORY: unable to bear wt.. TECHNIQUE: 2D digital imaging was performed. COMPARISON: No exams were available for comparison FINDINGS: BONES: No acute fracture is present. No bony destructive lesion is seen. JOINTS: The knee is normally aligned. No joint effusion is seen. There are marked degenerative change s of the left knee characterized by joint space narrowing and periarticular spurring. The findings a re most marked in the medial femoral tibial and patellofemoral joints. Chondrocalcinosis is present. SOFT TISSUE: Vascular calcifications are seen in the soft tissues. IMPRESSION: Marked osteoarthritis of the left knee. DATA REPOSITORY: RADIATION DOSE DELIVERED:
--- NOTE | 2020-05-27 15:21 | PHA.REVIEW ---
Pharmacy Admission Review - Admission Clinical Review (Last Reviewed 05/26/20 @ 20:17 by Clement Toledo MD) Diabetes mellitus type 2 in nonobese (Acute) UTI (urinary tract infection) (Acute) CAP (community acquired pneumonia) (Acute) Paroxysmal atrial fibrillation (Acute) History of CVA (cerebrovascular accident) (Acute) ondansetron Adverse Reaction (Intermediate, Unverified 05/26/20 15:28) Nausea Height 6 ft 3 in Weight 81.647 kg - Comments Comments/Follow Ups: SWINGBED. can't take care of at home any longer - Renal Dosing Renal Dosing: BUN 15 mg/dL (7-18) 05/26/20 15:09 Creatinine 1.18 mg/dL (0.70-1.30) 05/26/20 15:09 Medications needing adjustments: Reviewed (crcl ~70ml/min) - Anticoagulation Anticoagulation: Hgb 13.9 g/dL (13.5-17.5) 05/26/20 15:09 Hct 44.2 % (40.0-50.0) 05/26/20 15:09 Plt Count 337 10^3/uL (130-400) 05/26/20 15:09 INR 2.7 (0.9-1.1) H 05/27/20 06:28 Creatinine 1.18 mg/dL (0.70-1.30) 05/26/20 15:09 DVT Prohphylaxis: Reviewed Medications: Warfarin Therapeutic Anticoagulation: Reviewed (INR 2.7) Medications: Warfarin - Relevant Labs Sodium 137 mmol/L (136-145) 05/26/20 15:09 Potassium 3.7 mmol/L (3.5-5.1) 05/26/20 15:09 Chloride 99 mmol/L (98-107) 05/26/20 15:09 Electrolytes, C-Reactive P, ESR: Reviewed (vit D levels pending) - DM Control DM Control: Glucose 144 mg/dL (74-106) H 05/26/20 15:09 Insulin Dosing: N/A - Heart Failure/WY Heart Failure/[place]: Troponin I < 0.05 ng/mL (<0.06) 05/26/20 19:38 NT-Pro-B Natriuret Pep 216 pg/mL (<300) 05/26/20 15:09 - BP Control BP Control: Blood Pressure 138/84 If elevated: N/A - Current meds Current Medication Order Review: Reviewed (approx 8 orders were d/c'd by discharge @ 12 today. confirmed with provider that this was unintentional. only thing that was done was they backtimed pt to acute inpt instead of swingbed. meds are now reordered as tvo)
[2020-05-27 15:42] VITALS: BP 154/84; PULSE 78; RESP 16; TEMP 37.1; O2SAT 92
[2020-05-27] MEDS: cefTRIAXone 2 GM/50 ML BAG IVPB (18:04)
[2020-05-27] MEDS: Donepezil 5 MG TAB 10 MG PO (21:14)
[2020-05-27] MEDS: diphenhydrAMINE 25 MG CAP PO (21:14)
[2020-05-27] MEDS: Amitriptyline 50 MG TAB PO (21:14)
[2020-05-27] MEDS: Tamsulosin 0.4 MG CAPCR PO (21:15)
[2020-05-27] MEDS: Atorvastatin 40 MG TAB PO (21:15)
[2020-05-27] MEDS: Warfarin 4 MG TAB PO (21:21)
[2020-05-27 23:49] VITALS: BP 119/66; PULSE 77; RESP 19; TEMP 37.1; O2SAT 92
[2020-05-28 07:19] LABS: Abs Immature Grans 0.02 10^3/uL (0.0-0.06); Absolute Basophil Count 0.06 10^3/uL (0.0-0.2); Absolute Eosinophil Count 0.68 10^3/uL (0.0-0.7); Absolute Lymphocyte Count 0.93 10^3/uL (1.2-3.4); Absolute Monocyte Count 0.85 10^3/uL (0.1-0.8); Absolute Neutrophil Count 6.05 10^3/uL (1.2-6.7); Basophils % 0.7; Eosinophils % 7.9; HCT 43.5 % (40.0-50.0); HGB 13.8 g/dL (13.5-17.5); Immature Grans % 0.2; Lymphocytes % 10.8; MCHC 31.7 % (32.0-36.0); MCV 88.4 fL (80-95); MPV 8.9 fL (8.0-11.0); Monocytes % 9.9; Neutrophils % 70.5; Nucleated RBC 0 %; Platelet Count 341 10^3/uL (130-400); RBC 4.92 10^6/uL (4.36-5.78); RDW-SD 45.2 fL; WBC 8.59 10^3/uL (4.4-10.8)
[2020-05-28 07:34] LABS: INR 2.1 (0.9-1.1); Prothrombin Time 21.1 sec (9.3-11.0)
[2020-05-28 07:36] LABS: Anion Gap 6.7 mmol/L (3-11); BUN 14 mg/dL (7-18); CO2 30.3 mmol/L (21.0-32.0); CREATININE 1.09 mg/dL (0.70-1.30); Calcium 9.3 mg/dL (8.5-10.1); Chloride 101 mmol/L (98-107); Glucose 120 mg/dL (74-106); Potassium 3.8 mmol/L (3.5-5.1); Sodium 138 mmol/L (136-145)
[2020-05-28 07:52] VITALS: BP 143/78; PULSE 60; RESP 19; TEMP 36.8; O2SAT 89
[2020-05-28] MEDS: Budesonide/Formoterol 160/4.5 6 GM 60 PUFF INH IH ×2 (08:23→20:00)
--- NOTE | 2020-05-28 08:36 | OTTR_ITS ---
Date of service: 05/28/20 Time of Service: 07:20 Occupational Therapy Notes Occupational Therapy Inpatient Treatment Note Date: 05/28/20 PRECAUTIONS: Fall, Standard, Full SUBJECTIVE: Pt was sitting in chair when OT arrived. He was agreeable to OT session and reports that he slept well last night and is looking forward to seeing his today. OBJECTIVE: PAIN:no c/o pain FUNCTIONAL MOBILITY Sit-stand: Mod vc, Mod (A) x2 Stand-sit: Mod vc, Mod (A) x2 BATHING: sitting in chair with max (A) set up/clean up Upper Body: Min vc (I) face, (B) UE, abdomen, requires vc to continue washing other areas as pt continues to wash his (B) UE without vc. Lower Body: (I) (B) LE with min vc to just below (B) knees then requires max (A) (B) feet DRESSING: sitting in chair Upper Extremity: Min (A) with don and doffing hospital gown due to orienting to right side. Lower Extremity: Mod (A) don and doffing underwear GROOMING: sitting in chair (I) with brushing hair TOILETING: incontinent when OT arrived ASSESSMENT/PLAN: Pt is presenting with decreased functional mobility which he requires mod (A)x2 and mod vc. He has decreased safety awareness and is an increased fall risk for standing ADLs. OT does feel that pt would benefit from stay at SNF based on his decreased safety and increased fall risk placing him at an increased risk for re-admission. TREATMENT CODES/TIME: 23313, 20 minutes (07:20) [facility]
[2020-05-28] MEDS: Aspirin 81 MG CHEW PO (08:50)
[2020-05-28] MEDS: Sertraline 50 MG TAB PO (08:50)
[2020-05-28] MEDS: metFORMIN 500 MG TAB PO ×2 (08:50→16:45)
[2020-05-28] MEDS: Amiodarone 200 MG TAB PO ×2 (08:50→19:59)
[2020-05-28] MEDS: Furosemide 20 MG TAB PO (08:51)
[2020-05-28] MEDS: Potassium Chloride 10 MEQ CAPCR PO (08:51)
[2020-05-28] MEDS: amLODIPine 10 MG TAB PO (08:51)
[2020-05-28] MEDS: Metoprolol CR 100 MG TABCR PO ×2 (08:51→19:59)
[2020-05-28] MEDS: Doxycycline Hyclate 100 MG CAP PO ×2 (08:51→19:59)
[2020-05-28] MEDS: levoFLOXacin 500 MG, levoFLOXacin 250 MG 750 MG PO (10:23)
[2020-05-28] MEDS: Diclofenac 1% Gel 100 GM TUBE TP ×3 (12:30→20:00)
--- NOTE | 2020-05-28 12:58 | W.PM.PROGNOT ---
Date of Service Date of service: 05/28/20 Time of Service: 12:59 Assessment and Plan Assessment and plan (1) Diabetes mellitus type 2 in nonobese: Status: Acute Assessment and plan: Cont metformin and diabetic diet. Fasting glucose this AM on lab draw was 120. (2) UTI (urinary tract infection): Status: Acute Assessment and plan: Culture growing Klebsiella Oxytoca Sensitive to Levaquin. Changed antibiotic coverage to Levaquin 750mg po daily (3) CAP (community acquired pneumonia): Status: Acute Assessment and plan: R basilar infiltrate on CXR Levaquin 750mg po daily. + COPD. Only occasional cough noted. (4) Full code status: Status: Acute Assessment and plan: given his advancing dementia, palliative care has been consulted. (5) Mixed Alzheimer's and vascular dementia: Status: Chronic Assessment and plan: Cont Aricept No behavioral concerns noted (6) Ataxia: Status: Chronic Assessment and plan: Multifactoral: Previous stroke with L sided weakness and neglect, marked osteoarthritis / DJD of L knee and current infectious processes (PNA and UTI). PT. Will recommend Rehab at time of DC. Likely ready tomorrow. OT to eval. Subjective Subjective Patient reports: no new complaints, still having pain (Left knee), voiding w/o difficulty and afebrile; denies nausea, vomiting and shortness of breath Exam Const General: cooperative and no acute distress Nutritional Appearance: average body habitus Resp Effort & Inspection: normal respiratory effort Auscultation: wheezes lower bilaterally Cardio Rate: regular rate Rhythm: regular rhythm Heart Sounds: S1 normal and S2 normal GI Inspection: normal to inspection Palpation: soft and nontender Auscultation: normal bowel sounds Neuro General: patient alert and oriented Patient Orientation: Person and Confused Speech: speech normal (verbalizes only in short statements, answers.) Extrem General: no pedal edema Left lower extremity: knee (Enlarged knee joint compared to R.); joint enlargement noted Objective Last Vital Signs Temp 36.8 C 05/28/20 07:52 Pulse 60 05/28/20 07:52 Resp 19 05/28/20 07:52 BP 143/78 H 05/28/20 07:52 Pulse Ox 89 L 05/28/20 07:52 Laboratory Results - last 24 hr 05/28/20 05/28/20 05/28/20 06:34 06:34 06:34 WBC 8.59 RBC 4.92 Hgb 13.8 Hct 43.5 MCV 88.4 MCH 28.0 MCHC 31.7 L RDW 14.0 Plt Count 341 MPV 8.9 Immature Gran % 0.2 Neutrophils % 70.5 Lymphocytes % 10.8 Monocytes % 9.9 Eosinophils % 7.9 Basophils % 0.7 Nucleated RBC % 0 Absolute Neutrophils 6.05 Absolute Lymphocytes 0.93 L Absolute Monocytes 0.85 H Absolute Eosinophils 0.68 Absolute Basophils 0.06 PT 21.1 H D INR 2.1 H D Sodium 138 Potassium 3.8 Chloride 101 Carbon Dioxide 30.3 Anion Gap 6.7 BUN 14 Creatinine 1.09 Estimated GFR/1.73 m2 >= 60.00 Glucose 120 H Calcium 9.3
--- NOTE | 2020-05-28 13:39 | PT.INTREAT ---
Date of service: 05/28/20 Time of Service: 13:39 PT Notes Visit Reasons: AMBULATORY DYSFUNCTION Physical Therapy Inpatient Treatment Note Date: 05/28/2020 Precautions: Fall. Standard. Activity as tolerated. Subjective: Agreeable to PT session. Denies headache, dizziness, chest pain. Complained of being short of breath after trunk stabilization activity today. Objective: General Observation: Seated in recliner chair. Telemetry in place. Purplish discoloration on the L knee. Contusion on R arm. Genu valgum on R. Increased trunk lean on right Mental Status: Alert only to person. Able to follow one-step commands. Increased lean to R. Pain: States that his L knee hurst when he stands on it Bed Mobility/Transfers: Sit to stand moderate assist of 2 Stand to sit moderate assist of 2 Bed to chair moderate assist of 2, CGA of a third CG Chair to bed moderate assist of 2, CGA of a third CG Gait: In the afternoon patient was assisted from transferring from edge of bed to the reclining chair tolerating 3-4 steps using front wheeled walker with moderate assist of 2 and contact-guard assist of third caregiver for safety. Decreased ability to put weight on the left due to left knee deformity existing hemiparesis noted. Increased trunk flexion observed but is able to correct on demand for a short time. Patient requires moderate to maximal verbal cueing for motor sequencing/planning. Balance: Static Sitting: Fair Dynamic Sitting: Fair Static Standing: Poor Dynamic Standing: Unable NEURO RE-Ed and THERA ACT: 1. Trunk flexion while seated on recliner x 10 combined with trunk rotation to L x 10 for 2 sets - PT stands on patient's L side and asks patient to pull on PT's right with patient's R hand so he can bring himself forward and rotate trunk to L - the forward flexed and L rotated trunk position is helf for 10 counts each time - in between each set, patient performs LAQs x 10 and seated hip flexion x 10 2. Activity to increase trunk dynamic balance and decrease pusher syndrome with simultaneous L UE strengthening while on recliner chair - reclining chair positioned with L arm rest parallel and in contact with edge of mat table - using DB of varying weights, patient is asked to move weights to a farther position to increase L lateral trunk flexion, repeated x 8 for 4 sets - to increase forward flexion and trunk L rotation, weighted balls are thrown onto cones (cone bowling) x 7 for 2 sets using L hand Assessment: Francois demonstrates pushing syndrome characterized by increased leaning towards the unaffected, non-hemiparetic side with concomitant hemineglect on the left side which have resulted to increased trunk lean on the right with increased risk for falling on the right side. He demonstrates restlessness, always wanting to get out of his chair and out of his bed wanting to do something. His cognitive impairment compounds his already compromised safety level. He will therefore highly benefit from a short-term rehabilitation stay to maximize functional mobility level while reducing fall risk. Plan of Care/Treatment Plan: Continue with physical Therapy intervention for strengthening, bed mobility, transfers, gait, balance training, and use of assistive device. DISCHARGE RECOMMENDATIONS: Francois will require short-term SNF placement in order to regain highest functional mobility level, decrease fall risk, and reduce burden of caregiving at home. TREATMENT CODE/TIME: Session 1??[id number] x 30 minutes, 46980 x 16 minutes beginning at 10:13 AM. Session 2??[id number] x 26 minutes beginning at 13:39 PM.
--- NOTE | 2020-05-28 15:10 | PDOC.CMPRO ---
- If Service Date Differs Date of service: 05/28/20 Time of Service: 15:10 Care Management Progress Note S/O: CM met with patient, family and Dr. Fernandez, Francois changed his code status with his spouse present to DNR/DNI which align with his previous advance directive. Francois is in need of short term rehab prior to returning home due to weakness and pain in his left leg. Francois is in agreement with referrals to [facility], and [facility]. If no accepting facility his spouse agrees to a referral closer to [facility]. Francois continues to receive antibiotics for treatment of pneumonia, and UTI. Francois should continue to be followed by palliative care as outpatient. CM faxed [facility] to primary care and gave spouse a copy. A: Francois is a 69 year old male admitted with pneumonia, UTI, with a history of fall prior to admission and advancing dementia. P: Francois will need a safe discharge plan to SNF prior to returning home. Referrals pending at [facility] and [facility]. [facility] has declined for no bed availability. Francois will need to transfer via ambulance coordinated by [facility].
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
[2020-05-28 15:51] VITALS: BP 147/83; PULSE 72; RESP 17; TEMP 36.9; O2SAT 90
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
[2020-05-28] MEDS: Acetaminophen 325 MG TAB 650 MG PO (19:59)
[2020-05-28] MEDS: Atorvastatin 40 MG TAB PO (21:28)
[2020-05-28] MEDS: Donepezil 5 MG TAB 10 MG PO (21:28)
[2020-05-28] MEDS: Tamsulosin 0.4 MG CAPCR PO (21:29)
[2020-05-28] MEDS: Amitriptyline 50 MG TAB PO (21:29)
[2020-05-28] MEDS: Warfarin 1 MG TAB 2 MG PO (21:33)
[2020-05-28 21:39] VITALS: BP 135/76; PULSE 71; RESP 19; TEMP 36.6; O2SAT 92
[2020-05-29] VITALS (7 sets, daily range): BP systolic 118–153; BP diastolic 74–86; PULSE 59–74; RESP 19–20; TEMP 36.4–37.3; O2SAT 91–98
[2020-05-29 07:04] LABS: Prothrombin Time 21.2 sec (9.3-11.0)
[2020-05-29 07:12] LABS: INR 2.1 (0.9-1.1)
[2020-05-29] MEDS: levoFLOXacin 500 MG, levoFLOXacin 250 MG 750 MG PO (07:53)
[2020-05-29] MEDS: amLODIPine 10 MG TAB PO (07:53)
[2020-05-29] MEDS: Amiodarone 200 MG TAB PO ×2 (07:53→20:28)
[2020-05-29] MEDS: Furosemide 20 MG TAB PO (07:53)
[2020-05-29] MEDS: Sertraline 50 MG TAB PO (07:53)
[2020-05-29] MEDS: Aspirin 81 MG CHEW PO (07:53)
[2020-05-29] MEDS: Doxycycline Hyclate 100 MG CAP PO ×2 (07:54→20:28)
[2020-05-29] MEDS: Potassium Chloride 10 MEQ CAPCR PO (07:54)
[2020-05-29] MEDS: Metoprolol CR 100 MG TABCR PO ×2 (07:56→20:28)
[2020-05-29] MEDS: metFORMIN 500 MG TAB PO ×2 (07:56→17:04)
[2020-05-29] MEDS: Acetaminophen 325 MG TAB 650 MG PO ×2 (07:58→20:28)
[2020-05-29] MEDS: Diclofenac 1% Gel 100 GM TUBE TP ×4 (07:59→20:27)
--- NOTE | 2020-05-29 08:19 | OT.INTREAT ---
Date of service: 05/29/20 Time of Service: 07:40 Occupational Therapy Notes Occupational Therapy Inpatient Treatment Note Date: 05/29/20 PRECAUTIONS: Fall, Standard, DNR/DNI SUBJECTIVE: Pt was lying in bed when OT arrived. He was agreeable to OT session and reports that he slept well last night. OBJECTIVE: PAIN:no c/o pain FUNCTIONAL MOBILITY Supine-sit: Max (A) x2 Sit-stand: Max (A)x2 Stand-sit: Max (A)x2 Bed-Chair: CGAx2 BATHING: Sitting in chair with max (A) set up/clean up Upper Body: (I) face, (B) UE and abdomen with vc throughout for performance of sequencing his washing. Lower Body: (I) (B) LE with vc throughout DRESSING: sitting in chair Upper Extremity: Mod (A) don and doffing [facility] gown Lower Extremity: Max (A) don and doffing (B) socks GROOMING: sitting in chair (I) with brushing hair TOILETING: incontinent prior to OT arrival. EATING: Sitting in chair with max (A) set up, OT recommends that pt utilize a high lid scoop plate. OT did provide this to pt during his eating routine and he was able to perform with increased (I). OT also recommended and had pt utilize a handled cup with lid. This will increase pts functional activity tolerance for his eating routine. Pt was able to demonstrate this with good technique. OT recommends that this is important for pt as this allows him to perform his eating routine with increased functional (I). ASSESSMENT/PLAN: Pt was able to perform his ADL routines with (A) and vc throughout. Pt does require vc for initiation and sequencing. He is (I) with his bathing routine for UE with vc throughout. He does require (A) with LE dressing and bathing due to decreased ROM of his (B) LE. OT introduced pt to adaptive equipment for his eating routine to increase his functional activity tolerance. TREATMENT CODES/TIME: [id number], 30 minutes (07:40) Fanta Miranda OTR/[facility]
[2020-05-29] MEDS: Budesonide/Formoterol 160/4.5 6 GM 60 PUFF INH IH ×2 (08:56→20:26)
--- NOTE | 2020-05-29 09:18 | PDOC.CMPRO ---
- If Service Date Differs Date of service: 05/29/20 Time of Service: 09:18 Care Management Progress Note S/O: CM met with patient at the bedside he is alert and engaged. CM [facility] today, other agencies do not have a bed available at this time. Francois is ready for discharge he can not safely return home until he is able to go to short term rehab for PT. A: Francois is a 69 year old male admitted with pneumonia, UTI, with a history of fall prior to admission and advancing dementia. P: Francois will need a safe discharge plan to SNF prior to returning home. Referrals pending at [facility] and [facility]. [facility] has declined for no bed availability. Francois will need to transfer via ambulance coordinated by [facility].
--- NOTE | 2020-05-29 09:22 | PT.INTREAT ---
Date of service: 05/29/20 Time of Service: 09:22 PT Notes Visit Reasons: AMBULATORY DYSFUNCTION Physical Therapy Inpatient Treatment Note Date: 05/29/2020 Precautions: Fall. Standard. Activity as tolerated. 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 Impaired safety awareness. Subjective: Agreeable to PT session. Denies headache, dizziness, chest pain. Continues to complain of being short of breath after therapeutic activity. Reports pain in B knees with WB. Objective: General Observation: Seated in recliner chair. Purplish discoloration on the L knee. Contusion on R arm begining to lighten up. Genu valgum on R. Increased trunk lean on right Mental Status: Alert only to person. Able to follow one-step commands. Pain: Reports pain in B knees with WB Transfers: Sit to stand minimal assist of 2 from recliner; CGA of 1 while pulling from stair rail, moderate verbal cues for safety needed Stand to sit minimal assist of 2 from recliner; CGA of 1 while pulling from stair rail, moderate verbal cues for safety needed Balance: Static Sitting: Fair Dynamic Sitting: Fair Static Standing: Poor Dynamic Standing: Poor THERA ACT to reduce pusher syndrome: 1. Trunk flexion while seated on recliner x 10 combined with trunk rotation to L x 10 for 2 sets - PT stands on patient's L side and asks patient to pull on PT's right with patient's R hand so he can bring himself forward and rotate trunk to L - the forward flexed and L rotated trunk position is held for 10 counts each time 2. Activity to increase trunk dynamic balance and decrease pusher syndrome with simultaneous L UE strengthening while on recliner chair - reclining chair positioned with L arm rest parallel and in contact with edge of mat table - using DB of varying weights, patient is asked to move weights to a farther position to increase L lateral trunk flexion, repeated x 8 for 4 sets - to increase forward flexion and trunk L rotation, weighted balls are thrown onto cones (cone bowling) x 7 for 2 sets using L hand THERA EX: LAQs x 10 with 3 lb AW Seated hip flexion x 10 with 3lb AW Assessment: Francois continues to demonstrate pusher syndrome with a little less everity compared to yesterday. He was able to tolerate today's activity with less SOB than he did yesterday. Per MD, Francois does not have any acute abnormality nor fracture in the L knee and hip per radiologic findings. X-ray however shows extensive degeneration in the medial aspect of the knee joint articulating surface. Will plan on increasing activity tolerance for ambulation with assist from LNAs in the coming sessions. Plan of Care/Treatment Plan: Continue with physical Therapy intervention for strengthening, bed mobility, transfers, gait, balance training, and use of assistive device. DISCHARGE RECOMMENDATIONS: Francois will require short-term SNF placement in order to regain highest functional mobility level, decrease fall risk, and reduce burden of caregiving at home. TREATMENT CODE/TIME: 32996 x 48 minutes beginning at 9:22 AM.
--- NOTE | 2020-05-29 11:03 | RESPIRATORY ---
RT spoke with patient today concerning if he has home oxygen or not with him using it currently. Patient told RT that he has home oxygen with [facility] and that he sometimes uses 2L at home as needed. RT called [facility] to follow up with patients statement and found out that he does not have home oxygen with them.
[2020-05-29] MEDS: Polyethylene Glycol 3350 17 GM PACKET PO (11:50)
--- NOTE | 2020-05-29 13:50 | W.PM.PROGNOT ---
Date of Service Date of service: 05/29/20 Time of Service: 13:51 Assessment and Plan Assessment and plan (1) UTI (urinary tract infection): Status: Acute Assessment and plan: Cont Levaquin for Klebsiella oxytoca No c/o F/C, dysuria (2) CAP (community acquired pneumonia): Status: Acute Assessment and plan: Cont Levaquin. Only occasional cough. No F/C. Does have underlying COPD; cont albuterol prn and Symbicort (3) Mixed Alzheimer's and vascular dementia: Status: Chronic Assessment and plan: Pleasant, w/o behavioral disturbances. Cont Aricep (4) Falls frequently: Status: Chronic Assessment and plan: Gait disturbance d/t significant DJD of left knee, previous CVA with L sided weakness and neglect, current infectious processes. PT (5) Goals of care, counseling/discussion: Status: Acute Assessment and plan: , CHILOOA for health care decisions, is seeking LTC for patient. She endorses inability to safely care for him at home. CM working on placement. Subjective Subjective Patient reports: no new complaints, tolerating a regular diet and afebrile; denies diarrhea, nausea and vomiting Exam Const General: cooperative and no acute distress Nutritional Appearance: obese Resp Effort & Inspection: normal respiratory effort Auscultation: clear to auscultation bilaterally Cardio Rate: regular rate Rhythm: regular rhythm Heart Sounds: S1 normal and S2 normal GI Palpation: soft and nontender Auscultation: normal bowel sounds Skin General skin exam: no rashes or lesions noted Extrem General: no clubbing, cyanosis or edema Objective Last Vital Signs Temp 36.4 C L 05/29/20 07:37 Pulse 59 L 05/29/20 07:37 Resp 19 05/29/20 07:37 BP 118/74 05/29/20 07:37 Pulse Ox 98 05/29/20 12:15 Laboratory Results - last 24 hr 05/29/20 06:30 PT 21.2 H INR 2.1 H
--- NOTE | 2020-05-29 16:37 | PT.INTREAT ---
Date of service: 05/29/20 Time of Service: 16:37 PT Notes Visit Reasons: AMBULATORY DYSFUNCTION Inpatient Physical Therapy Treatment Note [facility] Date: 05/29/2020 PRECAUTIONS: Fall SUBJECTIVE: Francois is pleasant and agreeable to particiapting in PT. OBJECTIVE: PAIN: No c/o pain BED MOBILITY/TRANSFERS Sit-stand: CGA x2 Stand-sit: CGA x2 GAIT Assistive Device: FWW Weight bearing: Full Assist: CGA x2 Distance: 1 step forward/backward x3 (to and from recliner chair to exercise bar) THEREX: Patient was instructed in several global strengthening exercises, including functional [id number]-jx-[id number], static standing, mini squats, hip abduction/adduction, hip flexion, and heel raises. He requires verbal and visual cueing for proper exercise performance, CGA x2, and seated rests between exercises. ASSESSMENT: Patient continues to demonstrate need for skilled therapeutic intervention for global strengthening for increased mobility and activity tolerance. PLAN: Continue with global strengthening and gait training TREATMENT CODE/TIME: 30 minutes; [id number], [id number]
--- NOTE | 2020-05-29 18:53 | NUR.NOTE ---
Nursing Note: Pt had fall around 1830 from chair. Chair alarm was on. Chair alarm didn't work and didn't alarm appropriately. Pt was mary jo lifted back into bed. Vitals taken, vitals stable. Pt reports no pain. No change in orientation status. Norah Riggs RN reported fall to the provider cone classifier tender. Pt had minor skin tear on left arm otherwise no other visable injury seen.
[2020-05-29] MEDS: Amitriptyline 50 MG TAB PO (21:13)
[2020-05-29] MEDS: Donepezil 5 MG TAB 10 MG PO (21:14)
[2020-05-29] MEDS: Tamsulosin 0.4 MG CAPCR PO (21:14)
[2020-05-29] MEDS: Atorvastatin 40 MG TAB PO (21:14)
[2020-05-30 03:30] VITALS: BP 132/69; PULSE 72; RESP 20; TEMP 36.8; O2SAT 96
--- NOTE | 2020-05-30 06:30 | NUR.NOTE ---
Nursing Note: Pt had good night sleep. Utilized urinal the whole shift, changed once of his brief for the spills. Rt. elbow mepilex is clean,dry and intact. Neuro checks within normal limit. Moves all extremities appropriately. Cooperative on the care.
[2020-05-30 07:04] LABS: Prothrombin Time 20.2 sec (9.3-11.0)
[2020-05-30] MEDS: Budesonide/Formoterol 160/4.5 6 GM 60 PUFF INH IH (07:40)
[2020-05-30] MEDS: Polyethylene Glycol 3350 17 GM PACKET PO (08:21)
[2020-05-30] MEDS: Amiodarone 200 MG TAB PO (08:22)
[2020-05-30] MEDS: amLODIPine 10 MG TAB PO (08:22)
[2020-05-30] MEDS: Diclofenac 1% Gel 100 GM TUBE TP ×2 (08:22→11:00)
[2020-05-30] MEDS: Aspirin 81 MG CHEW PO (08:22)
[2020-05-30] MEDS: Metoprolol CR 100 MG TABCR PO (08:22)
[2020-05-30] MEDS: Sertraline 50 MG TAB PO (08:22)
[2020-05-30] MEDS: Doxycycline Hyclate 100 MG CAP PO (08:22)
[2020-05-30] MEDS: metFORMIN 500 MG TAB PO (08:22)
[2020-05-30] MEDS: Furosemide 20 MG TAB PO (08:22)
[2020-05-30] MEDS: levoFLOXacin 500 MG, levoFLOXacin 250 MG 750 MG PO (08:22)
[2020-05-30] MEDS: Potassium Chloride 10 MEQ CAPCR PO (08:22)
[2020-05-30 08:26] VITALS: BP 120/77; PULSE 68; RESP 18; TEMP 36.2; O2SAT 92
--- NOTE | 2020-05-30 09:37 | OT.INTREAT ---
Date of service: 05/30/20 Time of Service: 09:05 Occupational Therapy Notes Occupational Therapy Inpatient Treatment Note Date: 05/30/20 PRECAUTIONS: Fall, Standard, DNR/DNI SUBJECTIVE: Pt was sitting in chair when OT arrived. He was agreeable to OT session but reports that he is confused and unsure as to whether he has been washed up yet. DATE PULLER confirms that pt has not been pending OT arrival. OBJECTIVE: PAIN:no c/o pain BATHING: Sitting in chair with min vc Upper Body: (I) face, (B) UE and abdomen, hair min (A) Lower Body: (I) to (B) Knees then max (A) (B) feet DRESSING: sitting in chair Upper Extremity: Mod (A) [facility] gown Lower Extremity: NT GROOMING: (I) with brushing hair Toileting: Seated in chair (I) with urinal with min vc ASSESSMENT/PLAN: Pt was tired and required vc to stay awake mid session. He reports that he slept ok last night. Functionally he was demonstrating increased functional activity tolerance. His standing balance is poor and this is a limiting factor in him performing his ADLs at the sink. He has decreased (B) LE ROM And a (R) sided lean in the seated position that he can correct with increased vc throughout. TREATMENT CODES/TIME: [id number], 25 minutes (09:05) Fanta Miranda, OTR/[facility]
[2020-05-30 13:06] LABS: 25-Hydroxy D Total 14 ng/mL; 25-Hydroxy D2 <4.0 ng/mL; 25-Hydroxy D3 14 ng/mL
--- NOTE | 2020-05-30 13:20 | NUR.NOTE ---
Nursing Note: RN to RN report given to REJI Olguin @ [facility]. Reported no questions.
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
--- NOTE | 2020-05-30 13:25 | CMDISCH_ITS ---
- If Service Date Differs Date of service: 05/30/20 Time of Service: 13:25 LACE Index Scoring Tool - Questions: Length of Stay (in days): 4 - 6 Acuity (Admit via E.D.?): Yes Comorbidities: Congestive Heart Failure, Dementia E.D. Visits: 2 - Answers: Total Score: 14 Risk of Readmission: High Risk Care Management Discharge Reason for Hospitalization: UTI, Pneumonia Discharge Plan: Francois will be discharged to health and rehab today. CM met with his spouse and reviewed the plan she agrees to take the bed offer. CM reviewed plan and updated H&R. CM provided informaiton to the provider, CCRN, Clinical support and primary nurse of time of discharge and with alf forms page 1 and 2. Patient/Family Education Needs: Discharge education, limitations and follow up plan of care including expecations of transfer. Services Needed at Discharge: Senior Living Facility, Transportation
--- NOTE | 2020-05-30 16:40 | PT.INTREAT ---
Date of service: 05/30/20 Time of Service: 16:41 PT Notes Visit Reasons: AMBULATORY DYSFUNCTION Inpatient Physical Therapy Treatment Note [facility] Date: 05/30/2020 PRECAUTIONS: Fall SUBJECTIVE: Francois is pleasant and agreeable to participating in PT. OBJECTIVE: PAIN: Patient c/o pain in B knees with standing activities in p.m. BED MOBILITY/TRANSFERS Sit-stand: CGA Stand-sit: CGA GAIT Assistive Device: FWW Weight bearing: Full Assist: CGA Distance: 10' x3 in a.m. Deviation: Seated rest x3, constant cues for FWW mechanics and postural correction THEREX: Patient was instructed in several LE strengthening exercises in a seated position in a.m. He performed functional [id number] exercise x2 in p.m. from recliner surface to exercise bar. He also played functional cone bowling with 2# med ball to L, cone tap to L, med ball toss and catch, and cone continuous pickling line pickler from floor while seated in recliner. He requires verbal and visual cueing for proper exercise performance, as well as CGA for safety. ASSESSMENT: Patient continues to demonstrate need for skilled therapeutic intervention for global strengthening for increased mobility and activity tolerance. PLAN: Continue with global strengthening and gait training TREATMENT CODE/TIME: Session 1: 35 minutes; [id number], [id number] Session 2: 30 minutes; [id number], [id number]
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
== END 2020-05-30 14:31 | disposition skilled nursing facility (03) | DRG 190 ==
LOC: ER 17:08 → MS 19:49
PROVIDERS: Student in an Organized Health Care Education/Training Program; Admitting Provider Family Medicine; Emergency Provider Emergency Medicine; PCP Family Medicine; Visit Provider Nurse Practitioner Family
DX: J44.0 Chronic obstructive pulmonary disease with (acute) lower respiratory infection (principal); J18.9 Pneumonia, unspecified organism; N39.0 Urinary tract infection, site not specified; I69.354 Hemiplegia and hemiparesis following cerebral infarction affecting left non-dominant side; G30.9 Alzheimer's disease, unspecified; R29.6 Repeated falls; I48.0 Paroxysmal atrial fibrillation; Z91.81 History of falling; R06.02 Shortness of breath; F01.50 Vascular dementia, unspecified severity, without behavioral disturbance, psychotic disturbance, mood disturbance, and anxiety; I50.9 Heart failure, unspecified; I11.0 Hypertensive heart disease with heart failure; Z86.711 Personal history of pulmonary embolism; Z79.01 Long term (current) use of anticoagulants; Z95.3 Presence of xenogenic heart valve; R27.0 Ataxia, unspecified; F32.9 Major depressive disorder, single episode, unspecified; E78.00 Pure hypercholesterolemia, unspecified; G62.9 Polyneuropathy, unspecified; D55.9 Anemia due to enzyme disorder, unspecified; D53.8 Other specified nutritional anemias; I25.10 Atherosclerotic heart disease of native coronary artery without angina pectoris; Z99.81 Dependence on supplemental oxygen; I10 Essential (primary) hypertension; E11.9 Type 2 diabetes mellitus without complications; H53.462 Homonymous bilateral field defects, left side; B96.1 Klebsiella pneumoniae [K. pneumoniae] as the cause of diseases classified elsewhere; M17.12 Unilateral primary osteoarthritis, left knee
CPT/HCPCS: 36415; 80048; 80053; 82306; 87077; 90686; 93005; 94640; 96365; 97110; 97112; 97163; 97165; 97530; 97535; 99225; 99232; 99239; 99255; 99285; 99305; U0003; 70450; 71045; 73564; 81003; 81015; 83605; 83880; 84484; 85025; 85610; 87086; 87186; 93010

== ENCOUNTER 2020-08-30 13:41 | Outpatient (REF) | payer OTHER, MEDICAID, SELFPAY ==
[2020-09-01 21:37] LABS: COVID-19 RT-PCR Result Not Detected ((See Note))
== END 2020-08-30 14:01 ==
LOC: LBN 13:41
PROVIDERS: PCP Family Medicine; Visit Provider Nurse Practitioner Adult Health
DX: Z11.59 Encounter for screening for other viral diseases (principal)
CPT/HCPCS: U0003

== ENCOUNTER → 2020-09-07 11:48 | Outpatient (REF) | payer OTHER, MEDICAID, SELFPAY ==
[2020-09-08 18:47] LABS: COVID-19 RT-PCR Result Not Detected ((See Note))
== END ==
LOC: LBN 11:48
PROVIDERS: PCP Family Medicine; Visit Provider Nurse Practitioner Adult Health
DX: Z11.59 Encounter for screening for other viral diseases (principal)
CPT/HCPCS: U0003

== ENCOUNTER 2020-09-08 16:13 | Outpatient (REF) | payer OTHER, MEDICAID, SELFPAY ==
[2020-09-08 17:11] LABS: Abs Immature Grans 0.02 10^3/uL (0.0-0.06); Absolute Basophil Count 0.04 10^3/uL (0.0-0.2); Absolute Eosinophil Count 0.25 10^3/uL (0.0-0.7); Absolute Lymphocyte Count 1.02 10^3/uL (1.2-3.4); Absolute Monocyte Count 0.71 10^3/uL (0.1-0.8); Absolute Neutrophil Count 5.03 10^3/uL (1.2-6.7); Basophils % 0.6; Eosinophils % 3.5; HCT 45.8 % (40.0-50.0); HGB 13.6 g/dL (13.5-17.5); Immature Grans % 0.3; Lymphocytes % 14.4; MCH 25.4 pg (27.0-33.0); MCHC 29.7 % (32.0-36.0); MCV 85.4 fL (80-95); MPV 9.4 fL (8.0-11.0); Neutrophils % 71.2; Nucleated RBC 0 %; Platelet Count 384 10^3/uL (130-400); RBC 5.36 10^6/uL (4.36-5.78); RDW 17.1 % (11.8-14.1); RDW-SD 52.4 fL; WBC 7.07 10^3/uL (4.4-10.8)
[2020-09-08 17:29] LABS: Hemoglobin A1C 6.1 % (<5.7)
[2020-09-08 17:36] LABS: Anion Gap 5.2 mmol/L (3-11); BUN 15 mg/dL (7-18); CO2 32.8 mmol/L (21.0-32.0); CREATININE 1.26 mg/dL (0.70-1.30); Calcium 9.1 mg/dL (8.5-10.1); Chloride 103 mmol/L (98-107); Estimated GFR 56.91 (mL/min/1.73m2); Glucose 92 mg/dL (74-106); Magnesium 2.2 mg/dL (1.8-2.4); Sodium 141 mmol/L (136-145); TSH 1.23 uIU/mL (0.36-3.74)
== END 2020-09-08 16:33 ==
LOC: LBN 16:13
PROVIDERS: PCP Family Medicine; Visit Provider Family Medicine
DX: E11.9 Type 2 diabetes mellitus without complications (principal); I48.0 Paroxysmal atrial fibrillation; I10 Essential (primary) hypertension
CPT/HCPCS: 80048; 83036; 83735; 84443; 85025

== ENCOUNTER → 2020-09-12 19:51 | Outpatient (REF) | payer OTHER, MEDICAID, SELFPAY ==
[2020-09-13 17:31] LABS: COVID-19 RT-PCR Result Not Detected ((See Note))
== END ==
LOC: LBN 19:51
PROVIDERS: PCP Family Medicine; Visit Provider Nurse Practitioner Adult Health
DX: Z11.59 Encounter for screening for other viral diseases (principal)
CPT/HCPCS: U0003

== ENCOUNTER 2020-10-23 15:41 | Outpatient (REF) | payer OTHER, MEDICAID, SELFPAY ==
[2020-10-23 16:50] LABS: Anion Gap 7.9 mmol/L (3-11); BUN 15 mg/dL (7-18); CO2 31.1 mmol/L (21.0-32.0); Calcium 9.1 mg/dL (8.5-10.1); Chloride 102 mmol/L (98-107); Glucose 82 mg/dL (74-106); Potassium 4.4 mmol/L (3.5-5.1); Sodium 141 mmol/L (136-145)
== END 2020-10-23 15:42 | disposition home or self-care (01) ==
LOC: LBN 15:41
PROVIDERS: PCP Family Medicine; Visit Provider Nurse Practitioner Adult Health
DX: R60.0 Localized edema (principal)
CPT/HCPCS: 80048

== ENCOUNTER → 2020-12-24 13:08 | Outpatient (BNVA) | payer OTHER, MEDICAID, SELFPAY | PROVIDERS: PCP Family Medicine; Referring Provider Psychiatry & Neurology Neurocritical Care; Visit Provider Nurse Practitioner Adult Health | DX: G43.009 Migraine without aura, not intractable, without status migrainosus (principal); G30.9 Alzheimer's disease, unspecified; F01.50 Vascular dementia, unspecified severity, without behavioral disturbance, psychotic disturbance, mood disturbance, and anxiety; F02.80 Dementia in other diseases classified elsewhere, unspecified severity, without behavioral disturbance, psychotic disturbance, mood disturbance, and anxiety | CPT/HCPCS: 99214; 99215; G2212 ==

== ENCOUNTER 2021-01-02 12:31 | Outpatient (REF) | payer OTHER, MEDICAID, SELFPAY ==
[2021-01-02 13:29] LABS: Bilirubin Negative (Negative); Blood Trace-intact (Negative); Clarity Cloudy (Clear); Glucose Negative (Negative); Ketones Trace mg/dL (Negative); Leukocyte Esterase Large (Negative); Nitrite Negative (Negative)
[2021-01-02 13:52] LABS: Epithelial Cells Negative HPF (Negative); WBC >50 HPF (0-5)
[2021-01-02 13:53] LABS: Bacteria Many HPF (Negative)
[2021-01-02 13:54] LABS: C & S Indicated? C&S Done As Ordered; Casts Negative LPF (Negative); Mucus Negative (Negative)
== END 2021-01-02 12:32 | disposition home or self-care (01) ==
LOC: LBN 12:31
PROVIDERS: PCP Family Medicine; Visit Provider Family Medicine
DX: N39.0 Urinary tract infection, site not specified (principal)
CPT/HCPCS: 87077; 81003; 81015; 87086; 87186

== ENCOUNTER 2021-01-20 02:51 | Outpatient (REF) | payer OTHER, MEDICAID, SELFPAY ==
[2021-01-20 03:10] LABS: Bilirubin Negative (Negative); Blood Negative (Negative); Clarity Cloudy (Clear); Glucose Negative (Negative); Ketones Negative (Negative); Leukocyte Esterase Small (Negative); Nitrite Positive (Negative); pH >= 9.0 (5-8)
[2021-01-20 03:24] LABS: Bacteria Many HPF (Negative); Epithelial Cells Rare HPF (Negative); RBC 0-2 HPF (0-2)
[2021-01-20 03:25] LABS: C & S Indicated? C&S Done As Ordered; Casts Negative LPF (Negative); Crystals Many Triple Phos HPF (Negative); Mucus Negative (Negative)
== END 2021-01-20 02:52 | disposition home or self-care (01) ==
LOC: LBN 02:51
PROVIDERS: PCP Family Medicine; Visit Provider Nurse Practitioner Acute Care
DX: R35.0 Frequency of micturition (principal)
CPT/HCPCS: 87077; 81003; 81015; 87086; 87186

== ENCOUNTER 2021-01-25 04:58 | Outpatient (REF) | payer OTHER, MEDICAID, SELFPAY ==
[2021-01-25 05:31] LABS: MCH 26.7 pg (27.0-33.0); MCHC 31.7 % (32.0-36.0); MCV 84.2 fL (80-95); MPV 9.6 fL (8.0-11.0); Platelet Count 282 10^3/uL (130-400); RBC 4.87 10^6/uL (4.36-5.78); RDW 16.6 % (11.8-14.1); RDW-SD 51.1 fL; WBC 7.77 10^3/uL (4.4-10.8)
[2021-01-25 05:43] LABS: Anion Gap 5.7 mmol/L (3-11); BUN 20 mg/dL (7-18); CO2 32.3 mmol/L (21.0-32.0); CREATININE 1.1 mg/dL (0.70-1.30); Calcium 8.6 mg/dL (8.5-10.1); Chloride 106 mmol/L (98-107); Glucose 101 mg/dL (74-106); NT-proBNP 113 pg/mL (<300); Sodium 144 mmol/L (136-145)
== END 2021-01-25 04:59 | disposition home or self-care (01) ==
LOC: LBN 04:58
PROVIDERS: PCP Family Medicine; Visit Provider Family Medicine
DX: I11.0 Hypertensive heart disease with heart failure (principal); R60.0 Localized edema; E11.9 Type 2 diabetes mellitus without complications
CPT/HCPCS: 80048; 85027; 83880

== ENCOUNTER 2021-03-28 08:04 | Outpatient (REF) | payer OTHER, MEDICAID, SELFPAY ==
--- OUTSIDE RECORDS SUMMARY | 2021-03-28 08:08 | XMS_ITS ---
:1950 Author Care Team Providers Name Role Phone FLACO JUNG Primary Care Provider [phone] Allergies Code Code System Name Reaction Severity Status Onset [id number] RxNorm Compazine Vomiting ? Active ? Medications Name Status Start Date Stop Date ? ? amiodarone 200 mg tablet Active 10/13/2019 Not keeley ilable Take 1 tablet twice a day by oral route. amitriptyline 10 mg tablet Completed ? 08/17 Take 1 tablet every day by oral route at bedtime. amitriptyline 50 mg tablet Active 10/13/2019 Not a vailable Take 200 mg every day by oral route at bedtime. amlodipine 10 mg tablet Active 10/13/2019 Not avai lable Take 1 tablet every day by oral route. aspirin 81 mg tablet Active 10/13/2019 Not availab le Take 1 tablet every day by oral route. atorvastatin 40 mg tablet Active 10/13/2019 Not av ailable Take 1 tablet every day by oral route in the evening. Augmentin 875 mg-125 mg tablet Active 10/13/2019 N ot available Take 1 tablet every 12 hours by oral route for 10 days. budesonide-formoterol HFA 80 mcg-4.5 mcg/actuation aerosol inhal er Completed ? 08/17/2019 Inhale 2 puffs twice a day by inhalation route. Coumadin 2 mg tablet Active 10/13/2019 Not availab le 2 tabs every MWFSA, 1 tab all other days Coumadin 2.5 mg tablet Completed ? 9 Take 1 tablet every day by oral route. dextromethorphan-guaifenesin 10 mg-100 mg/5 mL oral liquid Compl eted ? 09/03/2019 Take 10 mL every 6 hours by oral route as needed. donepezil 10 mg tablet Active 10/13/2019 Not avail able Take 1 tablet every day by oral route at bedtime. Klor-Con 10 mEq tablet,extended release Completed ? 10/13/2019 Take 1 tablet every day by oral route. Lasix 20 mg tablet Active 10/13/2019 Not available Take 1 tablet every day by oral route. metoprolol tartrate 100 mg tablet Active 10/13/2019 Not available Take 1 tablet twice a day by oral route. oxycodone 5 mg tablet Completed ? 09/03/2019 Take 0.5 tablets every 8 hours by oral route as needed. oxygen Active 10/13/2019 Not available 2L-4L via N/C as needed to maintain pox>90% potassium chloride ER 10 mEq tablet,extended release Active 10/13/2019 Not available Take 1 tablet every day by oral route. ProAir HFA 90 mcg/actuation aerosol inhaler Active 04/2020 Not available Inhale 2 puffs every 6 hours by inhalation route as needed. sertraline 50 mg tablet Active 10/13/2019 Not avai lable Take 1 tablet every day by oral route. simvastatin 10 mg tablet Completed ? 019 Take 1 tablet every day by oral route. Symbicort 160 mcg-4.5 mcg/actuation HFA aerosol inhaler Active 10/13/2019 Not available Inhale 2 puffs twice a day by inhalation route. tamsulosin 0.4 mg capsule Active 10/13/2019 Not av ailable Take 1 capsule every day by oral route. Tessalon Perles 100 mg capsule Active 10/13/2019 N ot available Take 1 capsule 3 times a day by oral route. Tylenol 500 mg tablet Active 10/13/2019 Not availa ble Take 2 tablets every 6 hours by oral route as needed. Problems Name Status Onset Date Source ? Alzheimer's Disease Active 08/17/2019 ? Coronary Arteriosclerosis Active 08/17/2019 ? Pulmonary Embolism Active 08/17/2019 ? Aortic Valve Stenosis Active 08/17/2019 ? Carotid Artery Stenosis Active 08/17/2019 ? Cerebrovascular Accident Active 08/17/2019 ? Osteoarthritis Active 08/17/2019 ? Coronary Artery Bypass Graft Active 08/17/2019 ? Replacement of Aortic Valve Active 08/17/2019 ? Hyperlipidemia Active ? ? Depressive Disorder Active ? ? Hypertensive Disorder Active ? ? Asthma Unknown ? ? Chronic Obstructive Lung Disease Active ? ? Memory Impairment Unknown ? ? Headache Unknown ? ? Heart Murmur Active ? ? Snoring Unknown ? ? History of Traumatic Brain Injury Active ? ? Decreased Vitamin K Active ? ? Procedures Notes: Mitral valve CABG X3 hernia sx Results Lab Results Date Name Specimen Result Interpretation Description Value Range Status Address ? 10/13/2019 Prothrombin BLD High Pt 23.8 S 9.1-11.7 Final [place] Time S [facility] L ab (Internal) : [address] t ? ? BLD ? Inr 2.3 ? Final L ab (Internal) : [address] 10/12/2019 CBC W/ Auto BLD High Wbc 10.2 5.0-10.0 Final [place] Diff 10*3/uL 10*3/uL [facility] L ab (Internal) : [address] t ? ? BLD ? Rbc 5.20 4.60-6.00 Final [place] 10*6/uL 10*6/uL [facility] L ab (Internal) : [address] t ? ? BLD Low Hgb 13.0 14.0-18.0 Final [place] g/dL g/dL [facility] L ab (Internal) : [address] t ? ? BLD ? Hct 42.9 % 41.0-51.0 Final [facility] L ab (Internal) : [address] t ? ? BLD ? Mcv 82.5 fL 80.0-96.0 Final [facility] L ab (Internal) : [address] t ? ? BLD Low Mch 25.0 pg 26.0-32.0 Final [facility] L ab (Internal) : [address] t ? ? BLD Low Mchc 30.3 31.0-35.0 Final [place] g/dL g/dL [facility] L ab (Internal) : [address] t ? ? BLD High Rdw 15.9 % 11.5-14.5 Final [facility] L ab (Internal) : [address] t ? ? BLD ? Plt 334 130-450 Final [place] 10*3/uL 10*3/uL [facility] L ab (Internal) : [address] t ? ? BLD ? Anc 7.28 ? Final [place] 10*3/uL [facility] L ab (Internal) : [address] t ? ? BLD ? Neutro 71.4 % 40.0-75.0 Final [place] [facility] : [address] t ? ? BLD Low Lymph 14.6 % 20.0-50.0 Final [place] % [facility] : [address] t ? ? BLD High [place] 10.4 % 2.0-10.0 Final [place] [facility] : [address] t ? ? BLD ? Eos 2.6 % 1.0-6.0 % Final [facility] L ab (Internal) : [address] t ? ? BLD ? Baso 0.7 % 0.0-1.0 % Final [facility] L ab (Internal) : [address] t ? ? BLD ? Ig 0.3 % 0.0-0.9 % Final [facility] L ab (Internal) : [address] t 10/12/2019 CMP, Serum or S ? g/r 88 mg/dL 74-106 Miriam l [facility] Plasma mg/dL [facility] ([facility] : [address] t ? ? S High Bun 25 mg/dL 9-20 Final [facility] mg/dL [facility] ([facility] : [address] t ? ? S ? Crea 1.20 0.66-1.25 Final [place] mg/dL mg/dL [facility] (Internal) : [address] t ? ? S ? Ca 9.3 8.4-10.2 Final [place] mg/dL mg/dL [facility] (Internal) : [address] t ? ? S ? Na 139 137-145 Final [place] mmol/L mmol/L [facility] (Internal) : [address] t ? ? S ? K 4.1 3.5-5.1 Final [place] mmol/L mmol/L [facility] (Internal) : [address] t ? ? S ? Cl 99 98-107 Final [place] mmol/L mmol/L [facility] (Internal) : [address] t ? ? S ? Tco2 30.0 22.0-30.0 Final [place] mmol/L mmol/L [facility] L ab (Internal) : [address] t ? ? S ? Tp 8.0 g/dL 6.3-8.2 Final [place] g/dL [facility] L ab (Internal) : [address] t ? ? S ? Alb 4.4 g/dL 3.5-5.0 Final [place] g/dL [facility] L ab (Internal) : [address] t ? ? S ? Tbil 0.6 0.2-1.3 Final [place] mg/dL mg/dL [facility] L ab (Internal) : [address] t ? ? S ? Alp 122 U/L 38-126 Final [place] U/L [facility] L ab (Internal) : [address] t ? ? S ? Alt 26 U/L 21-72 U/L Final [place] (Sgpt) [facility] L ab (Internal) : [address] t ? ? S ? Ast 34 U/L 17-59 U/L Final [place] (Sgot) [facility] L ab (Internal) : [address] 10/12/2019 RBC Morphology, BLD ? Aniso occasion ? Fi nal [place] Blood al [facility] L ab (Internal) : [address] 10/12/2019 Prothrombin BLD High Pt 24.6 S 9.1-11.7 Final [place] Time [facility] L ab (Internal) : [address] ? ? BLD ? Inr 2.4 ? Final [facility] L ab (Internal) : [address] 10/12/2019 Urinalysis, UR ? UA-col yellow pale Final [place] Dipstick, or yellow [facility] ital Lab (Internal) : [address] t ? ? UR ABNORMAL UA-gera hazy clear Final [place] ear [facility] L ab (Internal) : [address] t ? ? UR ? UA-spe 1.020 1.003-1.0 Final [place] c Grav 35 [facility] L ab (Internal) : [address] ? ? UR ? UA-pH 6.0 [pH] 4.6-8.0 Final [place] [pH] [facility] L ab (Internal) : [address] t ? ? UR ? UA-marcelle negative negative Final [place] k Est [facility] L ab (Internal) : [address] t ? ? UR ABNORMAL UA-nit positive negative Final [facility] L ab (Internal) : [address] t ? ? UR ? UA-pro negative negative Final [place] t [facility] ab (Internal) : [address] ? ? UR ? UA-glu negative negative Final [place] c [facility] ab (Internal) : [address] ? ? UR ? UA-ket negative negative Final [place] one [facility] ab (Internal) : [address] ? ? UR ? UA-uro normal normal Final [place] ny [facility] ab (Internal) : [address] t ? ? UR ? UA-ny negative negative Final [place] i [facility] ab (Internal) : [address] t ? ? UR ABNORMAL UA-blo trace negative Final [place] od [facility] L [facility] (Internal) : [address] 10/12/2019 Urinalysis, UR ABNORMAL UA-WBC 3-5 0-3 [hpf] [facility] Microscopic [hpf] Count [facility] L ab (Internal) : [address] t ? ? UR ? UA-RBC 0-2 0-2 [hpf] [facility] [hpf] [facility] ab (Internal) : [address] t ? ? UR ABNORMAL UA-amrit many none seen Final Irist h teria [hpf] [hpf] [facility] ab (Internal) : [address] t ? ? UR ? UA-epi none none seen Final [place] thelial seen [hpf] [facility] [hpf] [facility] ab (Internal) : [address] t ? ? UR ? UA-muc none none seen Final [place] us seen [hpf] [facility] [hpf] [facility] ab (Internal) : [address] 10/12/2019 Troponin I, S ? Trop <0.06 0.00-0.06 [facility] Serum or Plasma NG/mL NG/mL [facility] : [address] t 10/12/2019 BNP (B-type S High Nt-pro 263 0-125 Final [place] Natriuretic bnp pg/mL pg/mL Count ry Peptide), Hospita l Lab Prohormone (Inter nal): N-terminal, [address] [place] Immunoassay, Blood 10/12/2019 Culture ([place] UR ? Final microbio ? Fi nal [place] Count), Urine logy Cou ntry results Hospital Lab (Internal) : [address] t 09/04/2019 Prothrombin BLD High Pt 18.2 S 9.1-11.7 Final [facility] L ab (Internal) : [address] ? ? BLD - Inr 1.9 ? Final [facility] ab (Internal) : [address] t 08/31/2019 Magnesium, QN, S - mg 2.2 1.6-2.3 [facility] Serum or Plasma mg/dL mg/dL [facility] ab (Internal) : [address] t 08/31/2019 Prothrombin BLD High Pt 16.6 S 9.1-11.7 Final [facility] L ab (Internal) : [address] ? ? BLD - Inr 1.7 ? [facility] ab (Internal) : [address] t 08/27/2019 Prothrombin BLD High Pt 15.5 S 9.1-11.7 Final [facility] L ab (Internal) : [address] ? ? BLD - Inr 1.6 ? Final [facility] ab (Internal) : [address] t 08/22/2019 Prothrombin BLD High Pt 15.5 S 9.1-11.7 Final [facility] L ab (Internal) : [address] t ? ? BLD - Inr 1.6 ? [facility] ab (Internal) : [address] t 08/20/2019 Prothrombin BLD High Pt 15.0 S 9.1-11.7 Final [facility] L ab (Internal) : [address] t ? ? BLD - Inr 1.6 ? Final L ab (Internal) : [address] 08/17/2019 Prothrombin BLD High Pt 29.9 S 9.1-11.7 Final [place] Time S [facility] L ab (Internal) : [address] ? ? BLD - Inr 3.2 ? Final [facility] ab (Internal) : [address] 08/16/2019 PT/INR ? Prothr 39.0 ? ? ombin Time 08/16/2019 INR, Plasma ? Inr 3.4 ? ? 08/15/2019 PT/INR ? Prothr 38.5 ? ? ombin Time 08/15/2019 INR, Plasma ? Inr 3.4 ? ? 08/14/2019 PT/INR ? Prothr 32.5 ? ? ombin Time 08/14/2019 INR, Plasma ? Inr 2.8 ? ? 08/04/2019 Partial BLD High PTT 45 s 22-35 s Final Nort h Thromboplastin (Ip) [facility] L ab (Internal) : [address] 08/03/2019 CBC W/ Auto BLD High Wbc 15.7 5.0-10.0 Final [place] Diff 10*3/uL 10*3/uL [facility] L ab (Internal) : [address] ? ? BLD Low Rbc 3.46 4.60-6.00 Final [place] 10*6/uL 10*6/uL [facility] L ab (Internal) : [address] ? ? BLD Low Hgb 9.7 g/dL 14.0-18.0 Final [place] g/dL [facility] L ab (Internal) : [address] zehra ? ? BLD Low Hct 31.0 % 41.0-51.0 Final [place] % [facility] L ab (Internal) : [address] ? ? BLD - Mcv 89.6 fL 80.0-96.0 Final [facility] L ab (Internal) : [address] ? ? BLD - Mch 28.0 pg 26.0-32.0 Final [facility] L ab (Internal) : [address], [place] ? ? BLD - Mchc 31.3 31.0-35.0 Final [place] g/dL g/dL [facility] (Internal) : [address] ? ? BLD High Rdw 15.2 % 11.5-14.5 Final [facility] % [facility] (Internal) : [address] ? ? BLD - Plt 214 130-450 Final [place] 10*3/uL 10*3/uL [facility] (Internal) : [address] 08/03/2019 D-dimer, Quant, PLASMA High Dimq 27.41 0.00-0.50 F inal [place] Plasma mg/L mg/L [facility] L ab (Internal) : [address] 08/03/2019 CMP, Serum or S High g/r 122 74-106 Final [place] Plasma mg/dL mg/dL [facility] L [facility] (Internal) : [address] ? ? S High Bun 26 mg/dL 9-20 Final [facility] mg/dL [facility] (Internal) : [address] ? ? S High Crea 1.30 0.66-1.25 Final [place] mg/dL mg/dL [facility] (Internal) : [address] ? ? S - Ca 9.0 8.4-10.2 Final [place] mg/dL mg/dL [facility] L [facility] (Internal) : [address] ? ? S Low Na 134 137-145 Final [place] mmol/L mmol/L [facility] (Internal) : [address] ? ? S - K 4.8 3.5-5.1 Final [place] mmol/L mmol/L [facility] (Internal) : [address] t ? ? S Low Cl 97 98-107 Final [place] mmol/L mmol/L [facility] (Internal) : [address] t ? ? S - Tco2 26.0 22.0-30.0 Final [place] mmol/L mmol/L [facility] (Internal) : [address] ? ? S - Tp 7.4 g/dL 6.3-8.2 Final [place] g/dL [facility] (Internal) : [address] ? ? S - Alb 3.7 g/dL 3.5-5.0 Final [place] g/dL [facility] L ab (Internal) : [address] t ? ? S - Tbil 1.0 0.2-1.3 Final [place] mg/dL mg/dL [facility] L ab (Internal) : [address] ? ? S High Alp 221 U/L 38-126 Final [place] U/L [facility] L ab (Internal) : [address] ? ? S - Alt 69 U/L 21-72 U/L Final [place] (Sgpt) [facility] L ab (Internal) : [address] ? ? S High Ast 64 U/L 17-59 U/L Final [place] (Sgot) [facility] L ab (Internal) : [address] 08/03/2019 Troponin I, S High Trop 0.08 0.00-0.06 Final [place] Serum or Plasma NG/mL NG/mL [facility] ab (Internal) : [address] 08/03/2019 BNP (B-type S High Nt-pro 651 0-125 Final [place] Natriuretic bnp pg/mL pg/mL Count ry Peptide), [facility] Pro[facility]one (Inter nal): N-terminal, [address], [place] Immunoassay, Blood 08/03/2019 Differential, BLD High Polys 86 % 40-75 % Final [facility], Blood [facility] L ab (Internal) : [address] ? ? BLD - Bands 0 % 0-5 % Final [facility] ab (Internal) : [address] ? ? BLD Low Lymphs 6 % 20-50 % Final [facility] ab (Internal) : [address] ? ? BLD - [place] 7 % 2-10 % Final [facility] ab (Internal) : [address] ? ? BLD - Eos 0 % 0-6 % Final [facility] ab (Internal) : [address] ? ? BLD - Baso 1 % 0-1 % Final [facility] L ab (Internal) : [address] t ? ? BLD - Atyp 0 % ? Final [facility] L ab (Internal) : [address] t ? ? BLD - Plts, adequate adequate Final [facility] L ab (Internal) : [address] t ? ? BLD ABNORMAL RBC abnormal normal Final [place] Morphol [facility] L ab (Internal) : [address] t ? ? BLD - Aniso occasion ? Final [facility] L ab (Internal) : [address] t 08/03/2019 Neutrophil BLD - Anc-ma 13.53 ? Final N orth Count, Absolute nual 10*3/uL [facility] (Anc), Blood Hosp ital Lab (Internal) : [address] 08/03/2019 Urinalysis, UR - UA-col yellow pale Final [place] Dipstick, or yellow [facility] Lab (Internal) : [address] t ? ? UR - UA-gera clear clear Final [facility] L ab (Internal) : [address] t ? ? UR - UA-spe 1.025 1.003-1.0 Final [facility] Grav [address] [place] [address] Hospital L ab (Internal) : [address] t ? ? UR - UA-pH 5.5 [pH] 4.6-8.0 Final [place] [pH] [facility] L ab (Internal) : [address] t ? ? UR - UA-marcelle negative negative Final [facility] Hospital L ab (Internal) : [address] t ? ? UR - UA-nit negative negative Final [facility] L ab (Internal) : [address] t ? ? UR - UA-pro negative negative Final [facility] Hospital L ab (Internal) : [address] t ? ? UR - UA-glu negative negative Final [facility] L ab (Internal) : [address] t ? ? UR - UA-ket negative negative Final [facility] L ab (Internal) : [address] t ? ? UR - UA-uro normal normal Final [place] ny [facility] ab (Internal) : [address] ? ? UR - UA-ny negative negative Final [place] i [facility] ab (Internal) : [address] ? ? UR ABNORMAL UA-blo large negative Final [place] od [facility] ab (Internal) : [address] 08/03/2019 Urinalysis, UR ABNORMAL UA-WBC 3-5 0-3 [hpf] [facility] Microscopic [hpf] Count [facility] ab (Internal) : [address] ? ? UR ABNORMAL UA-RBC 25-50 0-2 [hpf] Final Nort h [hpf] [facility] ab (Internal) : [address] ? ? UR ABNORMAL UA-amrit few none seen Final Nort h teria [hpf] [hpf] [facility] ab (Internal) : [address] ? ? UR ABNORMAL UA-epi few none seen Final Nort h thelial [hpf] [hpf] [facility] ab (Internal) : [address] ? ? UR ABNORMAL UA-muc few none seen Final Nort h us [hpf] [hpf] [facility] ab (Internal) : [address] ? ? UR - Hyalin rare ? Final North e C [hpf] [facility] ab (Internal) : [address] 08/03/2019 Culture ([place] UR - Final microbio ? Fi nal [place] Count), Urine logy Cou ntry results Hospital Lab (Internal) : [address] 03/22/2017 Venipuncture BLD ? Venpn* ? ? Final [facility] ab (Internal) : [address] 03/22/2017 BMP, Serum or S ? g/r 101 74-106 Final [place] Plasma mg/dL mg/dL [facility] ab (Internal) : [address] ? ? S High Bun 22 mg/dL 9-20 Final [place] mg/dL [facility] ab (Internal) : [address] ? ? S ? Crea 1.20 0.66-1.25 Final [place] mg/dL mg/dL [facility] L [facility] (Internal) : [address] t ? ? S ? Ca 9.3 8.4-10.2 Final [place] mg/dL mg/dL [facility] L ab (Internal) : [address] t ? ? S ? Na 137 137-145 Final [place] mmol/L mmol/L [facility] L ab (Internal) : [address] t ? ? S ? K 4.6 3.5-5.1 Final [place] mmol/L mmol/L [facility] L ab (Internal) : [address] t ? ? S ? Cl 102 98-107 Final [place] mmol/L mmol/L [facility] L ab (Internal) : [address] t ? ? S ? Tco2 27.0 22.0-30.0 Final [place] mmol/L mmol/L [facility] L ab (Internal) : [address] 03/14/2017 Venipuncture BLD ? Venpn* ? ? Final [facility] Hospital L ab (Internal) : [address] 03/14/2017 Cbc BLD ? Wbc 7.4 5.0-10.0 [facility]*3/uL [facility] L ab (Internal) : [address] t ? ? BLD Low Rbc 4.03 4.60-6.00 Final [place] 10*6/uL 10*6/uL [facility] L ab (Internal) : [address] t ? ? BLD Low Hgb 11.8 14.0-18.0 Final [place] g/dL g/dL [facility] L ab (Internal) : [address] t ? ? BLD Low Hct 35.1 % 41.0-51.0 Final [place] % [facility] L ab (Internal) : [address] ? ? BLD ? Mcv 87.1 fL 80.0-96.0 Final [place] fL [facility] L ab (Internal) : [address] ? ? BLD ? Mch 29.3 pg 26.0-32.0 Final [place] pg [facility] L ab (Internal) : [address] ? ? BLD ? Mchc 33.6 31.0-35.0 Final [place] g/dL g/dL [facility] (Internal) : [address] ? ? BLD ? Rdw 13.4 % 11.5-14.5 Final [facility] % [facility] (Internal) : [address] ? ? BLD ? Plt 225 130-450 Final [place] 10*3/uL 10*3/uL [facility] (Internal) : [address] ? ? BLD ? Anc 4.36 ? Final [place] 10*3/uL [facility] (Internal) : [address] 03/14/2017 BMP, Serum or PLASMA ? g/r 97 mg/dL 74-106 Miriam l [place] Plasma mg/dL [facility] L [facility] (Internal) : [address] t ? ? PLASMA High Bun 27 mg/dL 9-20 Final [place] mg/dL [facility] L ab (Internal) : [address] ? ? PLASMA ? Crea 1.20 0.66-1.25 Final [place] mg/dL mg/dL [facility] L ab (Internal) : [address] ? ? PLASMA ? Ca 8.8 8.4-10.2 Final [place] mg/dL mg/dL [facility] (Internal) : [address] t ? ? PLASMA ? Na 137 137-145 Final [place] mmol/L mmol/L [facility] L ab (Internal) : [address] ? ? PLASMA ? K 4.5 3.5-5.1 Final [place] mmol/L mmol/L [facility] (Internal) : [address] t ? ? PLASMA ? Cl 106 98-107 Final [place] mmol/L mmol/L [facility] L ab (Internal) : [address] t ? ? PLASMA ? Tco2 25.0 22.0-30.0 Final [place] mmol/L mmol/L [facility] L ab (Internal) : [address] 03/14/2017 Troponin I, S ? Trop <0.06 0.00-0.06 Final [place] Serum or Plasma NG/mL NG/mL [facility] L ab (Internal) : [address] 03/13/2017 Venipuncture BLD ? Venpn* ? ? Final [facility] Hospital L ab (Internal) : [address] 03/13/2017 Troponin I, PLASMA ? Trop <0.06 0.00-0.06 Final [place] Serum or Plasma NG/mL NG/mL [facility] L ab (Internal) : [address] 03/13/2017 Troponin I, S ? Trop <0.06 0.00-0.06 Final [place] Serum or Plasma NG/mL NG/mL [facility] L ab (Internal) : [address] 03/13/2017 CMP, Serum or S ? g/r 106 74-106 Final [place] Plasma mg/dL mg/dL [facility] L ab (Internal) : [address] t ? ? S High Bun 38 mg/dL 9-20 Final [place] mg/dL [facility] (Internal) : [address] t ? ? S High Crea 2.20 0.66-1.25 Final [place] mg/dL mg/dL [facility] (Internal) : [address] t ? ? S High Ca 10.4 8.4-10.2 Final [place] mg/dL mg/dL [facility] (Internal) : [address] t ? ? S ? Na 142 137-145 Final [place] mmol/L mmol/L [facility] (Internal) : [address] t ? ? S ? K 4.4 3.5-5.1 Final [place] mmol/L mmol/L [facility] (Internal) : [address] t ? ? S ? Cl 100 98-107 Final [place] mmol/L mmol/L [facility] (Internal) : [address] t ? ? S ? Tco2 27.0 22.0-30.0 Final [place] mmol/L mmol/L [facility] (Internal) : [address] t ? ? S High Tp 8.6 g/dL 6.3-8.2 Final [place] g/dL [facility] (Internal) : [address] t ? ? S ? Alb 4.8 g/dL 3.5-5.0 Final [place] g/dL [facility] (Internal) : [address] t ? ? S High Tbil 1.4 0.2-1.3 Final [place] mg/dL mg/dL [facility] (Internal) : [address] t ? ? S ? Alp 85 U/L 38-126 Final [place] U/L [facility] (Internal) : [address] t ? ? S ? Alt 25 U/L 21-72 U/L Final [place] (Sgpt) [facility] (Internal) : [address] t ? ? S ? Ast 32 U/L 17-59 U/L Final [place] (Sgot) [facility] (Internal) : [address] t 03/13/2017 CBC W/ Auto BLD ? Wbc 9.1 5.0-10.0 Final [place] Diff 10*3/uL 10*3/uL [facility] (Internal) : [address] t ? ? BLD ? Rbc 5.06 4.60-6.00 Final [place] 10*6/uL 10*6/uL [facility] (Internal) : [address] t ? ? BLD ? Hgb 14.8 14.0-18.0 Final [place] g/dL g/dL [facility] (Internal) : [address] t ? ? BLD ? Hct 44.0 % 41.0-51.0 Final [facility] (Internal) : [address] t ? ? BLD ? Mcv 87.0 fL 80.0-96.0 Final [place] fL [facility] (Internal) : [address] t ? ? BLD ? Mch 29.2 pg 26.0-32.0 Final [place] pg [facility] (Internal) : [address] t ? ? BLD ? Mchc 33.6 31.0-35.0 Final [place] g/dL g/dL [facility] (Internal) : [address] t ? ? BLD ? Rdw 13.8 % 11.5-14.5 Final [facility] ab (Internal) : [address], [place] ? ? BLD ? Plt 327 130-450 Final [place] 10*3/uL 10*3/uL [facility] ab (Internal) : [address], [place] ? ? BLD ? Anc 4.74 ? Final [place] 10*3/uL [facility] ab (Internal) : [address], [place] ? ? BLD ? Neutro 52.2 % 40.0-75.0 Final [facility] ab (Internal) : [address], [place] ? ? BLD ? Lymph 35.2 % 20.0-50.0 Final [facility] ab (Internal) : [address], [place] ? ? BLD ? [place] 9.0 % 2.0-10.0 Final [facility] ab (Internal) : [address], [place] ? ? BLD ? Eos 2.6 % 1.0-6.0 % Final [facility] ab (Internal) : [address], [place] ? ? BLD ? Baso 0.7 % 0.0-1.0 % Final [facility] ab (Internal) : [address], [place] ? ? BLD ? Ig 0.3 % 0.0-0.9 % Final [facility] ab (Internal) : [address], [place] Past Encounters None recorded. Social History Tobacco Smoking Status Former Smoker Notes: Quit Vaccine List None recorded. Plan of Care Reminders Provider Appointments None ? ? recorded. Lab None ? ? recorded. Referral None ? ? recorded. Procedures None ? ? recorded. Surgeries None ? ? recorded. Imaging None ? ? recorded. Vitals Weight Blood Pressure 107.22 kg 112/62 mm[Hg]
[2021-03-28 09:53] LABS: Bilirubin Negative (Negative); Blood Negative (Negative); Clarity Cloudy (Clear); Glucose Negative (Negative); Ketones Negative (Negative); Leukocyte Esterase Trace (Negative); Nitrite Positive (Negative); Specific Gravity 1.015 (1.005-1.025); pH >= 9.0 (5-8)
[2021-03-28 10:04] LABS: Bacteria Packed HPF (Negative); C & S Indicated? C&S Done As Ordered; Crystals Many Triple Phos HPF (Negative)
== END 2021-03-28 08:05 | disposition home or self-care (01) ==
LOC: LBN 08:04
PROVIDERS: PCP Family Medicine; Visit Provider Nurse Practitioner Family
DX: N39.0 Urinary tract infection, site not specified (principal); R35.0 Frequency of micturition
CPT/HCPCS: 87077; 81003; 81015; 87086; 87186

== ENCOUNTER 2021-03-29 18:49 | Outpatient (REF) | payer OTHER, MEDICAID, SELFPAY ==
[2021-03-29 19:12] LABS: ALT 35 U/L (16-63); AST 25 U/L (15-37); Albumin 3.5 g/dL (3.4-5.0); Alkaline Phosphatase 124 U/L (46-116); Anion Gap 11.8 mmol/L (3-11); BUN 16 mg/dL (7-18); Bilirubin, Total 0.7 mg/dL (0.2-1.0); CO2 26.2 mmol/L (21.0-32.0); Calcium 8.8 mg/dL (8.5-10.1); Chloride 101 mmol/L (98-107); Glucose 115 mg/dL (74-106); Potassium 3.9 mmol/L (3.5-5.1); Sodium 139 mmol/L (136-145); Total Protein 7.4 g/dL (6.4-8.2)
[2021-03-30 02:08] LABS: NT-proBNP 162 pg/mL (<300)
== END 2021-03-29 18:50 | disposition home or self-care (01) ==
LOC: LBN 18:49
PROVIDERS: PCP Family Medicine; Visit Provider Nurse Practitioner Family
DX: R63.5 Abnormal weight gain (principal); R60.9 Edema, unspecified; I11.0 Hypertensive heart disease with heart failure
CPT/HCPCS: 80053; 83880

== ENCOUNTER 2021-04-11 09:49 | Emergency (ER) | payer OTHER, MEDICAID, SELFPAY ==
[2021-04-11] VITALS (22 sets, daily range): BP systolic 104–134; BP diastolic 55–84; PULSE 72–86; RESP 16–30; TEMP 37; O2SAT 91–95
--- NOTE | 2021-04-11 09:45 | RT.EKG_ITS ---
APPROVED REPORT Exam: Resting ECG Reason for Exam: [facility] Patient Location: E HR:78 bpm ECG Measurements Heart Rate 78 AXIS MD 216 P 48 QRSd 99 QRS 51 QT 390 T 52 QTc 445 Conclusion Sinus rhythm...normal P axis, V-rate 60- 99 Borderline prolonged MD interval...MD >212, V-rate 50- 90 Left atrial enlargement...P, P'>60mS, <-0.15mV V1. Artifct in V1. No STEMI. I have reviewed and interpreted ECG and agree with software generated interpretation.
--- NOTE | 2021-04-11 10:00 | DI.CT_ITS ---
Exam(s) CT HEAD WO EXAM: CT HEAD WO CLINICAL HISTORY: ams TECHNIQUE: COMPARISON: CT CT HEAD WO from 05/26/2020 FINDINGS: Noncontrast cranial CT was performed. There is marked ventricular prominence out of proportion to gy ral atrophy, none normal pressure hydrocephalus not excluded, please correlate clinically. Old right occipital infarct noted. No evidence of acute intracranial hemorrhage, mass effect, or midline shif t. Orbital and temporal bone structures appear intact. Visualized paranasal sinuses and mastoid air cells are clear. IMPRESSION: No evidence of acute intracranial process. No change from 05/26/2020. Please correlate clinically r egarding possibility of normal pressure hydrocephalus. RADIATION DOSE DELIVERED: 874.34mGy.cm Total DLP 40.85mGy CTDIvol RADIATION OPTIMIZATION: All CT scans at this facility use at least one of these dose optimization te chniques: automated exposure control; mA and/or kV adjustment per patient size (includes targeted exa ms where dose is matched to clinical indication); or iterative reconstruction.
--- OUTSIDE RECORDS SUMMARY | 2021-04-11 10:00 | XMS_ITS ---
:1950 Author Care Team Providers Name Role Phone FLACO JUNG Primary Care Provider [phone] Allergies Code Code System Name Reaction Severity [...] BLD High Pt 23.8 S 9.1-11.7 Final [place] Time S [facility] L ab (Internal) : [address] t ? ? BLD ? Inr 2.3 ? Final [facility] L ab (Internal) : [address] 10/12/2019 CBC W/ Auto BLD High Wbc 10.2 5.0-10.0 Final [place] Diff 10*3/uL 10*3/uL [facility] L ab (Internal) : [address] t ? ? BLD ? Rbc 5.20 4.60-6.00 Final [place] 10*6/uL 10*6/uL [facility] L ab (Internal) : [address] t ? ? BLD Low Hgb 13.0 14.0-18.0 Final [place] g/dL g/dL [facility] L ab (Internal) : [address] t ? ? BLD ? Hct 42.9 % 41.0-51.[address] [facility] L ab (Internal) : [address] t ? ? BLD ? Mcv 82.5 fL 80.0-96.0 Final [facility] L ab (Internal) : [address] t ? ? BLD Low Mch 25.0 pg 26.0-32.0 Final [facility] L ab (Internal) : [address] t ? ? BLD Low Mchc 30.3 31.0-35.0 Final [place] g/dL g/dL [facility] L ab (Internal) : [address] t ? ? BLD High Rdw 15.9 % 11.5-14.[address] [facility] L ab (Internal) : [address] t ? ? BLD ? Plt 334 130-450 Final [place] 10*3/uL 10*3/uL [facility] L ab (Internal) : [address] t ? ? BLD ? Anc 7.28 ? Final [place] 10*3/uL [facility] L ab (Internal) : [address] t ? ? BLD ? Neutro 71.4 % 40.0-75.0 Final [place] % [facility] ([facility] : [address] t ? ? BLD Low Lymph 14.6 % 20.0-50.0 Final [place] % [facility] L [facility] (Internal) : [address] t ? ? BLD High Mcpherson 10.4 % 2.0-10.0 Final [place] % [facility] L [facility] (Internal) : [address] t ? ? BLD ? Eos 2.6 % 1.0-6.0 % Final [facility] L ab (Internal) : [address] t ? ? BLD ? Baso 0.7 % 0.0-1.0 % Final [facility] L ab (Internal) : [address] t ? ? BLD ? Ig 0.3 % 0.0-0.9 % Final [facility] L ab (Internal) : 189 [...] ? S ? Tco2 30.0 22.0-30.0 Final [place] mmol/L mmol/L [facility] L ab (Internal) : [address] t ? ? S ? Tp 8.0 g/dL 6.3-8.2 Final [place] g/dL [facility] L ab (Internal) : [address] t ? ? S ? Alb 4.4 g/dL 3.5-5.0 Final [place] g/dL [facility] L ab (Internal) : [address] t ? ? S ? Tbil 0.6 0.2-1.3 Final [place] mg/dL mg/dL [facility] L ab (Internal) : [address] t ? ? S ? Alp 122 U/L 38-126 Final [place] U/L [facility] L ab (Internal) : [address] t ? ? S ? Alt 26 U/L 21-72 U/L Final [place] (Sgpt) [facility] L ab (Internal) : [address] t ? ? S ? Ast 34 U/L 17-59 U/L Final [place] (Sgot) [facility] L ab (Internal) : [address] 10/12/2019 RBC Morphology, BLD ? Aniso occasion ? Fi nal [place] Blood al [facility] L ab (Internal) : [address] 10/12/2019 Prothrombin BLD High Pt 24.6 S 9.1-11.7 Final [place] Time [facility] L ab (Internal) : [address] ? ? BLD ? Inr 2.4 ? Final [facility] L ab (Internal) : [address] 10/12/2019 Urinalysis, UR ? UA-col yellow pale Final [place] Dipstick, or yellow [facility] Lab (Internal) : [address] t ? ? UR ABNORMAL UA-gera hazy clear Final [place] ear [facility] L ab (Internal) : [address] t ? ? UR ? UA-spe 1.020 1.003-1.0 Final [place] c Grav 35 [facility] L ab (Internal) : [address] ? ? UR ? UA-pH 6.0 [pH] 4.6-8.0 Final [place] [pH] [facility] L ab (Internal) : [address] t ? ? UR ? UA-marcelle negative negative Final [place] k Est [facility] L ab (Internal) : [address] t ? ? UR ABNORMAL UA-nit positive negative Final [place] [facility] L ab (Internal) : [address] t ? ? UR ? UA-pro negative negative Final [place] t [facility] (Internal[facility] : [address] ? ? UR ? UA-glu negative negative Final [place] c [facility] (Internal) : [address] ? ? UR ? UA-ket negative negative Final [place] one [facility] (Internal) : [address] ? ? UR ? UA-uro normal normal Final [place] [facility] (Internal) : [address] t ? ? UR ? UA-ny negative negative Final [place] i [facility] (Internal) : [address] t ? ? UR ABNORMAL UA-blo trace negative Final [place] od [facility] L ab (Internal) : [address] 10/12/2019 Urinalysis, UR ABNORMAL UA-WBC 3-5 0-3 [hpf] [facility] Microscopic [hpf] Count [facility] L ab (Internal) : [address] t ? ? UR ? UA-RBC 0-2 0-2 [hpf] [facility] [hpf] [facility] (Internal) : [address] t ? ? UR ABNORMAL UA-amrit many none seen Final [facility] [hpf] [hpf] [facility] (Internal) : [address] t ? ? UR ? UA-epi none none seen Final [place] thelial seen [hpf] [facility] [hpf] [facility] ab (Internal) : [address] t ? ? UR ? UA-muc none none seen Final [place] us seen [hpf] [facility] [hpf] [facility] ab (Internal) : [address] 10/12/2019 Troponin I, S ? Trop <0.06 0.00-0.06 [facility] Serum or Plasma NG/mL NG/mL [facility] : [address] t 10/12/2019 BNP (B-type S High Nt-pro 263 0-125 Final [place] Natriuretic bnp pg/mL pg/mL Count ry Peptide), Hospita l Lab Prohormone (Inter nal): N-terminal, [address] [place] Immunoassay, Blood 10/12/2019 Culture ([place] UR ? Final microbio ? Fi nal [place] Count), Urine logy Cou ntry results Hospital Lab (Internal) : [address] t 09/04/2019 Prothrombin BLD High Pt 18.2 S 9.1-11.7 Final [facility] L ab (Internal) : [address] ? ? BLD - Inr 1.9 ? Final [facility] ab (Internal) : [address] t 08/31/2019 Magnesium, QN, S - mg 2.2 1.6-2.3 [facility] Serum or Plasma mg/dL mg/dL [facility] ab (Internal) : [address] t 08/31/2019 Prothrombin BLD High Pt 16.6 S 9.1-11.7 Final [facility] L ab (Internal) : [address] ? ? BLD - Inr 1.7 ? [facility] ab (Internal) : [address] t 08/27/2019 Prothrombin BLD High Pt 15.5 S 9.1-11.7 Final [facility] L ab (Internal) : [address] ? ? BLD - Inr 1.6 ? Final [facility] ab (Internal) : [address] t 08/22/2019 Prothrombin BLD High Pt 15.5 S 9.1-11.7 Final [facility] L ab (Internal) : [address] t ? ? BLD - Inr 1.6 ? [facility] ab (Internal) : [address] t 08/20/2019 Prothrombin BLD High Pt 15.0 S 9.1-11.7 Final [facility] L ab (Internal) : [address] t ? ? BLD - Inr 1.6 ? Final [facility] L ab (Internal) : [address] 08/17/2019 Prothrombin BLD High Pt 29.9 S 9.1-11.7 Final [place] Time S [facility] L ab (Internal) : [address] ? ? BLD - Inr 3.2 ? Final [facility] ab (Internal) : [address] [...] s Final Nort [place] Thromboplastin (Ip) Co [facility] L ab (Internal) : [address] 08/03/2019 CBC W/ Auto BLD High Wbc 15.7 5.0-10.0 Final [place] Diff 10*3/uL 10*3/uL [facility] L ab (Internal) : [address] ? ? BLD Low Rbc 3.46 4.60-6.00 Final [place] 10*6/uL 10*6/uL [facility] L ab (Internal) : [address] ? ? BLD Low Hgb 9.7 g/dL 14.0-18.0 Final [place] g/dL [facility] L ab (Internal) : [address] zehra ? ? BLD Low Hct 31.0 % 41.0-51.0 Final [place] % [facility] L ab (Internal) : [address] ? ? BLD - Mcv 89.6 fL 80.0-96.0 Final [facility] L ab (Internal) : [address] ? ? BLD - Mch 28.0 pg 26.0-32.0 Final [facility] L ab (Internal) : [address] [...] S - Alb 3.7 g/dL 3.5-5.0 Final [place] g/dL [facility] L ab (Internal) : [address] t ? ? S - Tbil 1.0 0.2-1.3 Final [place] mg/dL mg/dL [facility] L ab (Internal) : [address] ? ? S High Alp 221 U/L 38-126 Final [place] U/L [facility] L ab (Internal) : [address] ? ? S - Alt 69 U/L 21-72 U/L Final [place] (Sgpt) [facility] L ab (Internal) : [address] ? ? S High Ast 64 U/L 17-59 U/L Final [place] (Sgot) [facility] L ab (Internal) : [address] 08/03/2019 Troponin I, S High Trop 0.08 0.00-0.06 Final [place] Serum or Plasma NG/mL NG/mL [facility] ab (Internal) : [address] 08/03/2019 BNP (B-type S High Nt-pro 651 0-125 Final [place] Natriuretic bnp pg/mL pg/mL Count ry Peptide), [facility] Lab Prohormone (Inter nal): N-terminal, [address], [place] Immunoassay, Blood 08/03/2019 Differential, BLD High Polys 86 % 40-75 % Final [facility], Blood [facility] L ab (Internal) : [address] ? ? BLD - Bands 0 % 0-5 % Final [facility] ab (Internal) : [address] ? ? BLD Low Lymphs 6 % 20-50 % Final [facility] ab (Internal) : [address] ? ? BLD - Mcpherson 7 % 2-10 % Final [facility] ab (Internal) : [address] ? ? BLD - Eos 0 % 0-6 % Final [facility] ab (Internal) : [address] ? ? BLD - Baso 1 % 0-1 % Final [facility] L ab (Internal) : [address] t ? ? BLD - Atyp 0 % ? Final [facility] L ab (Internal) : [address] t ? ? BLD - Plts, adequate adequate Final [facility] L ab (Internal) : [address] t ? ? BLD ABNORMAL RBC abnormal normal Final [place] Morphol [facility] L ab (Internal) : [address] t ? ? BLD - Aniso occasion ? Final [facility] L ab (Internal) : [address] t 08/03/2019 Neutrophil BLD - Anc-ma 13.53 ? Final N orth Count, Absolute nual 10*3/uL [facility] (Anc), Blood Hosp ital Lab (Internal) : [address] 08/03/2019 Urinalysis, UR - UA-col yellow pale Final [place] Dipstick, or yellow [facility] Lab (Internal) : [address] t ? ? UR - UA-gera clear clear Final [facility] Hospital L ab (Internal) : [address] t ? ? UR - UA-spe 1.025 1.003-1.0 Final [facility] Grav [address] [place] [address] Hospital L ab (Internal) : [address] t ? ? UR - UA-pH 5.5 [pH] 4.6-8.0 Final [place] [pH] [facility] L ab (Internal) : [address] t ? ? UR - UA-marcelle negative negative Final [facility] Hospital L ab (Internal) : [address] t ? ? UR - UA-nit negative negative Final [facility] L ab (Internal) : [address] t ? ? UR - UA-pro negative negative Final [facility] L ab (Internal) : [address] t ? ? UR - UA-glu negative negative Final [facility] L ab (Internal) : [address] t ? ? UR - UA-ket negative negative Final [facility] L ab (Internal) : [address] t ? ? UR - UA-uro normal normal Final [place] ny [facility] (Internal) : [address] ? ? UR - UA-ny negative negative Final [place] i [facility] (Internal) : [address] ? ? UR ABNORMAL UA-blo large negative Final [place] od [facility] (Internal) : [address] 08/03/2019 Urinalysis, UR ABNORMAL UA-WBC 3-5 0-3 [hpf] [facility] Microscopic [hpf] Count [facility] ab (Internal) : [address] ? ? UR ABNORMAL UA-RBC 25-50 0-2 [hpf] Final Nort h [hpf] [facility] (Internal) : [address] ? ? UR ABNORMAL UA-amrit few none seen Final [place] teria [hpf] [hpf] [facility] (Internal) : [address] ? ? UR ABNORMAL UA-epi few none seen Final [place] [facility] thelial [hpf] [hpf] [facility] (Internal) : [address] ? ? UR ABNORMAL UA-muc few none seen Final Nort h us [hpf] [hpf] [facility] (Internal[facility] : [address] ? ? UR - Hyalin rare ? Final [place] e C [hpf] [facility] (Internal) : [address] 08/03/2019 Culture ([place] UR - Final microbio ? Fi nal [place] Count), Urine logy Cou ntry results Hospital Lab (Internal) : [address] 03/22/2017 Venipuncture BLD ? Venpn* ? ? Final [facility] ab (Internal) : [address] 03/22/2017 BMP, Serum or S ? g/r 101 74-106 Final [place] Plasma mg/dL mg/dL [facility] (Internal) : [address] ? ? S High Bun 22 mg/dL 9-20 Final [place] mg/dL [facility] (Internal) : [address] ? ? S ? Crea 1.20 0.66-1.25 Final [place] mg/dL mg/dL [facility] (Internal) : [address] t ? ? S ? Ca 9.3 8.4-10.2 Final [place] mg/dL mg/dL [facility] L ab (Internal) : [address] t ? ? S ? Na 137 137-145 Final [place] mmol/L mmol/L [facility] L ab (Internal) : [address] t ? ? S ? K 4.6 3.5-5.1 Final [place] mmol/L mmol/L [facility] L ab (Internal) : [address] t ? ? S ? Cl 102 98-107 Final [place] mmol/L mmol/L [facility] L ab (Internal) : [address] t ? ? S ? Tco2 27.0 22.0-30.0 Final [place] mmol/L mmol/L [facility] L ab (Internal) : [address] 03/14/2017 Venipuncture BLD ? Venpn* ? ? Final [facility] L ab (Internal) : [address] 03/14/2017 Cbc BLD ? Wbc 7.4 5.0-10.0 Final [facility] 10*3/uL 10*3/uL [facility] L ab (Internal) : [address] t ? ? BLD Low Rbc 4.03 4.60-6.00 Final [place] 10*6/uL 10*6/uL [facility] L ab (Internal) : [address] t ? ? BLD Low Hgb 11.8 14.0-18.0 Final [place] g/dL g/dL [facility] L ab (Internal) : [address] t ? ? BLD Low Hct 35.1 % 41.0-51.0 Final [place] % [facility] L ab (Internal) : [address] ? ? BLD ? Mcv 87.1 fL 80.0-96.0 Final [place] fL [facility] L ab (Internal) : [address] ? ? BLD ? Mch 29.3 pg 26.0-32.0 Final [place] pg [facility] L ab (Internal) : 189 [...] Bun 27 mg/dL 9-20 Final [place] mg/dL [facility] L ab (Internal) : [address] ? ? PLASMA ? Crea 1.20 0.66-1.25 Final [place] mg/dL mg/dL [facility] L ab (Internal) : [address] ? ? PLASMA ? Ca 8.8 8.4-10.2 Final [place] mg/dL mg/dL [facility] L ab (Internal) : [address] t ? ? PLASMA ? Na 137 137-145 Final [place] mmol/L mmol/L [facility] L ab (Internal) : [address] ? ? PLASMA ? K 4.5 3.5-5.1 Final [place] mmol/L mmol/L [facility] L ab (Internal) : [address] t ? ? PLASMA ? Cl 106 98-107 Final [place] mmol/L mmol/L [facility] L ab (Internal) : [address] t ? ? PLASMA ? Tco2 25.0 22.0-30.0 Final [place] mmol/L mmol/L [facility] L ab (Internal) : [address] 03/14/2017 Troponin I, S ? Trop <0.06 0.00-0.06 Final [place] Serum or Plasma NG/mL NG/mL [facility] L ab (Internal) : [address] 03/13/2017 Venipuncture BLD ? Venpn* ? ? Final [facility] L ab (Internal) : [address] 03/13/2017 Troponin I, PLASMA ? Trop <0.06 0.00-0.06 Final [place] Serum or Plasma NG/mL NG/mL [facility] L ab (Internal) : [address] 03/13/2017 Troponin I, S ? Trop <0.06 0.00-0.06 Final [place] Serum or Plasma NG/mL NG/mL [facility] L ab (Internal) : [address] 03/13/2017 CMP, Serum or S ? g/r 106 74-106 Final [place] Plasma mg/dL mg/dL [facility] L ab (Internal) : [address] t ? ? S High Bun 38 mg/dL 9-20 Final [place] mg/dL [facility] L ab (Internal) : [address] t ? ? S High Crea 2.20 0.66-1.25 Final [place] mg/dL mg/dL [facility] L ab (Internal) : [address] t ? ? S High Ca 10.4 8.4-10.2 Final [place] mg/dL mg/dL [facility] L ab (Internal) : [address] t ? ? S ? Na 142 137-145 Final [place] mmol/L mmol/L [facility] L ab (Internal) : [address] t ? ? S ? K 4.4 3.5-5.1 Final [place] mmol/L mmol/L [facility] L ab (Internal) : [address] t ? ? S ? Cl 100 98-107 Final [place] mmol/L mmol/L [facility] L ab (Internal) : [address] t ? ? S ? Tco2 27.0 22.0-30.0 Final [place] mmol/L mmol/L [facility] L ab (Internal) : [address] t ? ? S High Tp 8.6 g/dL 6.3-8.2 Final [place] g/dL [facility] L ab (Internal) : [address] t ? ? S ? Alb 4.8 g/dL 3.5-5.0 Final [place] g/dL [facility] L ab (Internal) : [address] t ? ? S High Tbil 1.4 0.2-1.3 Final [place] mg/dL mg/dL [facility] L ab (Internal) : [address] t ? ? S ? Alp 85 U/L 38-126 Final [place] U/L [facility] L ab (Internal) : [address] t ? ? S ? Alt 25 U/L 21-72 U/L Final [place] (Sgpt) [facility] L ab (Internal) : [address] t ? ? S ? Ast 32 U/L 17-59 U/L Final [place] (Sgot) [facility] L ab (Internal) : [address] t 03/13/2017 CBC W/ Auto BLD ? Wbc 9.1 5.0-10.0 Final [place] Diff 10*3/uL 10*3/uL [facility] L ab (Internal) : [address] t ? ? BLD ? Rbc 5.06 4.60-6.00 Final [place] 10*6/uL 10*6/uL [facility] L ab (Internal) : [address] t ? ? BLD ? Hgb 14.8 14.0-18.0 Final [place] g/dL g/dL [facility] L ab (Internal) : [address] t ? ? BLD ? Hct 44.0 % 41.0-51.0 Final [facility] Hospital L ab (Internal) : [address] t ? ? BLD ? Mcv 87.0 fL 80.0-96.0 Final [place] fL [facility] L ab (Internal) : [address] t ? ? BLD ? Mch 29.2 pg 26.0-32.0 Final [place] pg [facility] L ab (Internal) : [address] t ? ? BLD ? Mchc 33.6 31.0-35.0 Final [place] g/dL g/dL [facility] L ab (Internal) : [address] t ? ? BLD ? Rdw 13.8 % 11.5-14.5 Final [facility] ab (Internal) : [address], [place] ? ? BLD ? Plt 327 130-450 Final [place] 10*3/uL 10*3/uL [facility] (Internal) : [address], [place] ? ? BLD ? Anc 4.74 ? Final [place] 10*3/uL [facility] (Internal) : [address], [place] ? ? BLD ? Neutro 52.2 % 40.0-75.0 Final [facility] ab (Internal) : [address], [place] ? ? BLD ? Lymph 35.2 % 20.0-50.0 Final [facility] ab (Internal) : [address], [place] ? ? BLD ? Mcpherson 9.0 % 2.0-10.0 Final [facility] ab (Internal) : [address], [place] ? ? BLD ? Eos 2.6 % 1.0-6.0 % Final [facility] ab (Internal) : [address], [place] ? ? BLD ? Baso 0.7 % 0.0-1.0 % Final [facility] ab (Internal) : [address], [place] ? ? BLD ? Ig 0.3 % 0.0-0.9 % Final [facility] ab (Internal) : [address], [...]
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
--- NOTE | 2021-04-11 10:14 | DI.RAD_ITS ---
Exam(s) XR CHEST 1V IN DI DEPT EXAM: XR CHEST 1V IN DI DEPT CLINICAL HISTORY: ams TECHNIQUE: COMPARISON: CR XR PORTABLE CHEST AP from 05/26/2020 FINDINGS: The heart is not enlarged. There is apparent linear scarring in the right mid lung. Otherwise the l ungs are generally clear. No gross pleural effusion on this frontal film. IMPRESSION: No evidence of acute process. RADIATION DOSE DELIVERED: Total DLP
[2021-04-11 10:30] LABS: Abs Immature Grans 0.04 10^3/uL (0.0-0.06); Absolute Basophil Count 0.06 10^3/uL (0.0-0.2); Basophils % 0.4; Eosinophils % 0.3; HCT 43.8 % (40.0-50.0); HGB 13.7 g/dL (13.5-17.5); Immature Grans % 0.3; Lymphocytes % 2.6; MCH 26.4 pg (27.0-33.0); MCHC 31.3 % (32.0-36.0); MCV 84.4 fL (80-95); MPV 9.5 fL (8.0-11.0); Monocytes % 2.4; Nucleated RBC 0 %; Platelet Count 286 10^3/uL (130-400); RBC 5.19 10^6/uL (4.36-5.78); RDW 14.7 % (11.8-14.1); WBC 15.59 10^3/uL (4.4-10.8)
[2021-04-11 10:40] LABS: Absolute Eosinophil Count 0.05 10^3/uL (0.0-0.7); Absolute Lymphocyte Count 0.41 10^3/uL (1.2-3.4); Absolute Monocyte Count 0.37 10^3/uL (0.1-0.8); Absolute Neutrophil Count 14.65 10^3/uL (1.2-6.7)
[2021-04-11 10:53] LABS: ALT 58 U/L (16-63); AST 44 U/L (15-37); Albumin 3.4 g/dL (3.4-5.0); Alkaline Phosphatase 110 U/L (46-116); Anion Gap 6.6 mmol/L (3-11); BUN 19 mg/dL (7-18); Bilirubin, Total 0.8 mg/dL (0.2-1.0); CO2 30.4 mmol/L (21.0-32.0); CREATININE 1.2 mg/dL (0.70-1.30); Chloride 103 mmol/L (98-107); Glucose 145 mg/dL (74-106); Potassium 4.1 mmol/L (3.5-5.1); Sodium 140 mmol/L (136-145); Total Protein 7.3 g/dL (6.4-8.2)
[2021-04-11 10:54] LABS: Troponin I < 0.05 ng/mL (<0.06)
[2021-04-11 10:58] LABS: Magnesium 2.3 mg/dL (1.8-2.4); NT-proBNP 299 pg/mL (<300)
--- NOTE | 2021-04-11 11:07 | DI.VRAD_ITS ---
PROCEDURE INFORMATION: Exam: CT Head Without Contrast Exam date and time: 04/11/2021 10:17 AM Age: 70 years old Clinical indication: Other: AMS; Additional info: PT could not follow breathing instructions TECHNIQUE: Imaging protocol: Computed tomography of the head without contrast. Radiation optimization: All CT scans at this facility use at least one of these dose optimization techniques: automated exposure control; mA and/or kV adjustment per patient size (includes targeted exams where dose is matched to clinical indication); or iterative reconstruction. COMPARISON: CT HEAD WO 05/26/2020 3:40 PM FINDINGS: Brain: Rios-white matter differentiation is normal. There is no mass effect or midline shift. There is no intra-axial hemorrhage. There are mild patchy foci of periventricular and subcortical white matter hypodensities. There is parenchymal volume loss with compensatory dilatation of sulci and basilar cisterns. There is no extra-axial fluid collection. There is stable encephalomalacia in the right occipital, posteromedial parietal lobe , likely sequela of remote infarction. Cerebral ventricles: The ventricles are dilated out of proportion to sulcal enlargement with rounding of the frontal horns with relative preservation of size of the 4th ventricle suspicious of moderate normal pressure hydrocephalus. Paranasal sinuses: Visualized sinuses are unremarkable. No fluid levels. Mastoid air cells: Visualized mastoid air cells are well aerated. Bones/joints: . No acute fracture. Soft tissues: Unremarkable. IMPRESSION: 1. No acute abnormality. 2. Stable ventriculomegaly probably due to normal pressure hydrocephalus. 3. Stable chronic infarct in the posteromedial right parietal lobe and right occipital lobe. Dictated and Authenticated by: Sumanth Clayton MD. Ordering:KATHY Oakley MD
[2021-04-11 11:08] LABS: INR 1.1 (0.9-1.1); PTT Activated 25.5 sec (21.0-27.5); Prothrombin Time 11.1 sec (9.3-11.0)
--- NOTE | 2021-04-11 11:08 | DI.VRAD_ITS ---
PROCEDURE INFORMATION: Exam: XR Chest Exam date and time: 04/11/2021 10:28 AM Age: 70 years old Clinical indication: Other: AMS; Additional info: PT could not follow breathing instructions TECHNIQUE: Imaging protocol: XR of the chest. Views: 1 view. COMPARISON: CR XR PORTABLE CHEST AP 05/26/2020 3:35 PM FINDINGS: Lungs: No consolidation. There is linear atelectasis or scarring in the right mid lung. Pleural spaces: Unremarkable. No pleural effusion. No pneumothorax. Heart/Mediastinum: Unremarkable. No cardiomegaly. Bones/joints: No acute abnormality. There is mild calcific tendinopathy of the right shoulder joint. IMPRESSION: No acute findings. Dictated and Authenticated by: Sumanth Clayton MD. Ordering:KATHY Oakley MD
[2021-04-11 11:18] LABS: Bilirubin Negative (Negative); Blood Large (Negative); Clarity Cloudy (Clear); Glucose Negative (Negative); Ketones Negative (Negative); Leukocyte Esterase Large (Negative); Nitrite Positive (Negative); pH >= 9.0 (5-8)
[2021-04-11 11:26] LABS: Source Nasal/Nares
[2021-04-11 11:32] LABS: Bacteria Many HPF (Negative); Epithelial Cells Rare HPF (Negative); RBC 20-50 HPF (0-2); WBC 20-50 HPF (0-5)
[2021-04-11 11:34] LABS: C & S Indicated? Yes; Casts Negative LPF (Negative); Crystals Mod Calcium Oxalate HPF (Negative); Mucus Trace (Negative)
[2021-04-11 11:57] LABS: Lactate 1.8 mmol/L (0.6-1.4)
[2021-04-11] MEDS: cefTRIAXone 1 GM/50 ML BAG IVPB (11:58)
[2021-04-11 12:19] LABS: COVID-19 PCR Negative (Negative)
[2021-04-11 12:45] LABS: Procalcitonin 3.2 ng/mL
== END 2021-04-11 12:44 | disposition skilled nursing facility (03) ==
PROVIDERS: Emergency Provider Physician Assistant; PCP Family Medicine
DX: N39.0 Urinary tract infection, site not specified (principal); B96.89 Other specified bacterial agents as the cause of diseases classified elsewhere; R41.82 Altered mental status, unspecified; I11.0 Hypertensive heart disease with heart failure; I50.9 Heart failure, unspecified; I25.10 Atherosclerotic heart disease of native coronary artery without angina pectoris
CPT/HCPCS: 36410; 36415; 80053; 84145; 87040; 87077; 87635; 93005; 96365; 99285; 70450; 71045; 81003; 81015; 83605; 83735; 83880; 84484; 85025; 85610; 85730; 87086; 87186; 93010; 99284; J0696

== ENCOUNTER → 2021-06-08 08:52 | Outpatient (BNVA) | payer OTHER, MEDICAID, SELFPAY | PROVIDERS: PCP Family Medicine; Referring Provider Family Medicine; Visit Provider Nurse Practitioner Adult Health | DX: G30.9 Alzheimer's disease, unspecified (principal); F01.50 Vascular dementia, unspecified severity, without behavioral disturbance, psychotic disturbance, mood disturbance, and anxiety; F02.80 Dementia in other diseases classified elsewhere, unspecified severity, without behavioral disturbance, psychotic disturbance, mood disturbance, and anxiety | CPT/HCPCS: 99213 ==

== ENCOUNTER 2021-06-24 14:26 | Outpatient (REF) | payer OTHER, MEDICAID, SELFPAY ==
[2021-06-24 15:06] LABS: Hemoglobin A1C 6.2 % (<5.7)
== END 2021-06-24 14:27 | disposition home or self-care (01) ==
LOC: LBN 14:26
PROVIDERS: PCP Family Medicine; Visit Provider Family Medicine
DX: E11.9 Type 2 diabetes mellitus without complications (principal)
CPT/HCPCS: 83036

== ENCOUNTER 2021-08-19 05:58 | Outpatient (REF) | payer MEDICARE, MEDICAID, SELFPAY ==
--- OUTSIDE RECORDS SUMMARY | 2021-08-19 06:02 | XMS_ITS ---
:1950 Author Care Team Providers Name Role Phone FLACO JUNG Primary Care Provider [phone] Allergies Code Code System Name Reaction Severity [...] BLD High Pt 23.8 S 9.1-11.7 Final [place] Time S [facility] L ab (Internal) : [address] t ? ? BLD ? Inr 2.3 ? Final L ab (Internal) : [address] 10/12/2019 CBC W/ Auto BLD High Wbc 10.2 5.0-10.0 Final [place] Diff 10*3/uL 10*3/uL [facility] L ab (Internal) : [address] t ? ? BLD ? Rbc 5.20 4.60-6.00 Final [place] 10*6/uL 10*6/uL [facility] L ab (Internal) : [address] t ? ? BLD Low Hgb 13.0 14.0-18.0 Final [place] g/dL g/dL [facility] L ab (Internal) : [address] t ? ? BLD ? Hct 42.9 % 41.0-51.0 Final [facility] L ab (Internal) : [address] t ? ? BLD ? Mcv 82.5 fL 80.0-96.0 Final [facility] L ab (Internal) : [address] t ? ? BLD Low Mch 25.0 pg 26.0-32.[address] [facility] L ab (Internal) : [address] t ? ? BLD Low Mchc 30.3 31.0-35.0 Final [place] g/dL g/dL [facility] L ab (Internal) : [address] t ? ? BLD High Rdw 15.9 % 11.5-14.5 Final [facility] L ab (Internal) : [address] t ? ? BLD ? Plt 334 130-450 Final [place] 10*3/uL 10*3/uL [facility] L ab (Internal) : [address] t ? ? BLD ? Anc 7.28 ? Final [place] 10*3/uL [facility] L ab (Internal) : [address] t ? ? BLD ? Neutro 71.4 % 40.0-75.0 Final [place] % [facility] L [facility] (Internal) : [address] t ? ? BLD Low Lymph 14.6 % 20.0-50.0 Final [place] % [facility] L ab (Internal) : [address] t ? ? BLD High [place] 10.4 % 2.0-10.0 Final [place] % [facility] L ab (Internal) : [address] t ? ? BLD ? Eos 2.6 % 1.0-6.0 % Final [facility] L ab (Internal) : [address] t ? ? BLD ? Baso 0.7 % 0.0-1.0 % Final [facility] L ab (Internal) : [address] t ? ? BLD ? Ig 0.3 % 0.0-0.9 % Final [facility] [...] ? S ? Tco2 30.0 22.0-30.0 Final [place] mmol/L mmol/L [facility] L ab (Internal) : [address] t ? ? S ? Tp 8.0 g/dL 6.3-8.2 Final [place] g/dL [facility] L ab (Internal) : [address] t ? ? S ? Alb 4.4 g/dL 3.5-5.0 Final [place] g/dL [facility] L ab (Internal) : [address] t ? ? S ? Tbil 0.6 0.2-1.3 Final [place] mg/dL mg/dL [facility] L ab (Internal) : [address] t ? ? S ? Alp 122 U/L 38-126 Final [place] U/L [facility] L ab (Internal) : [address] t ? ? S ? Alt 26 U/L 21-72 U/L Final [place] (Sgpt) [facility] L ab (Internal) : [address] t ? ? S ? Ast 34 U/L 17-59 U/L Final [place] (Sgot) [facility] L ab (Internal) : [address] 10/12/2019 RBC Morphology, BLD ? Aniso occasion ? Fi nal [place] Blood al [facility] L ab (Internal) : [address] 10/12/2019 Prothrombin BLD High Pt 24.6 S 9.1-11.7 Final [place] Time [facility] L ab (Internal) : [address] ? ? BLD ? Inr 2.4 ? Final [facility] L ab (Internal) : [address] 10/12/2019 Urinalysis, UR ? UA-col yellow pale Final [place] Dipstick, or yellow [facility] Lab (Internal) : [address] t ? ? UR ABNORMAL UA-gera hazy clear Final [place] ear [facility] L ab (Internal) : [address] t ? ? UR ? UA-spe 1.020 1.003-1.0 Final [place] c Grav 35 [facility] L ab (Internal) : [address] ? ? UR ? UA-pH 6.0 [pH] 4.6-8.0 Final [place] [pH] [facility] L ab (Internal) : [address] t ? ? UR ? UA-marcelle negative negative Final [employer] [place] k Est [facility] L ab (Internal) : [address] t ? ? UR ABNORMAL UA-nit positive negative Final [facility] L ab (Internal) : [address] t ? ? UR ? UA-pro negative negative Final [employer] [place] t [facility] ab (Internal) : [address] ? ? UR ? UA-glu negative negative Final [employer] [place] c [facility] ab (Internal) : [address] ? ? UR ? UA-ket negative negative Final [employer] [place] one [facility] ab (Internal) : [address] ? ? UR ? UA-uro normal normal Final [employer] [place] ny [facility] ab (Internal) : [address] t ? ? UR ? UA-ny negative negative Final [place] i [facility] ab (Internal) : [address] t ? ? UR ABNORMAL UA-blo trace negative Final [employer] [place] od [facility] L ab (Internal) : [address] 10/12/2019 Urinalysis, UR ABNORMAL UA-WBC 3-5 0-3 [hpf] [facility] Microscopic [hpf] Count [facility] L ab (Internal) : [address] t ? ? UR ? UA-RBC 0-2 0-2 [hpf] [facility] [hpf] [facility] ab (Internal) : [address] t ? ? UR ABNORMAL UA-amrit many none seen Final [facility] [hpf] [hpf] [facility] ab (Internal) : [address] t ? ? UR ? UA-epi none none seen Final [place] thelial seen [hpf] [facility] [hpf] [facility] ab (Internal) : [address] t ? ? UR ? UA-muc none none seen Final [place] us seen [hpf] [facility] [hpf] [facility] ab (Internal) : [address] 10/12/2019 Troponin I, S ? Trop <0.06 0.00-0.06 [facility] Serum or Plasma NG/mL NG/mL [facility] : [address] t 10/12/2019 BNP (B-type S High Nt-pro 263 0-125 Final [place] Natriuretic bnp pg/mL pg/mL Count ry Peptide), Hospita l Lab Prohormone (Inter nal): N-terminal, [address] [place] Immunoassay, Blood 10/12/2019 Culture ([place] UR ? Final microbio ? Fi nal [place] Count), Urine logy Cou ntry results Hospital Lab (Internal) : [address] t 09/04/2019 Prothrombin BLD High Pt 18.2 S 9.1-11.7 Final [facility] L ab (Internal) : [address] ? ? BLD - Inr 1.9 ? Final [facility] ab (Internal) : [address] t 08/31/2019 Magnesium, QN, S - mg 2.2 1.6-2.[address] [facility] Serum or Plasma mg/dL mg/dL [facility] ab (Internal) : [address] t 08/31/2019 Prothrombin BLD High Pt 16.6 S 9.1-11.7 Final [facility] L ab (Internal) : [address] ? ? BLD - Inr 1.7 ? [facility] ab (Internal) : [address] t 08/27/2019 Prothrombin BLD High Pt 15.5 S 9.1-11.7 Final [facility] L ab (Internal) : [address] ? ? BLD - Inr 1.6 ? Final [facility] ab (Internal) : [address] t 08/22/2019 Prothrombin BLD High Pt 15.5 S 9.1-11.7 Final [facility] L ab (Internal) : [address] t ? ? BLD - Inr 1.6 ? [facility] ab (Internal) : [address] t 08/20/2019 Prothrombin BLD High Pt 15.0 S 9.1-11.7 Final [facility] L ab (Internal) : [address] t ? ? BLD - Inr 1.6 ? Final L ab (Internal) : [address] 08/17/2019 Prothrombin BLD High Pt 29.9 S 9.1-11.7 Final [place] Time S [facility] L ab (Internal) : [address] ? ? BLD - Inr 3.2 ? Final [facility] ab (Internal) : [address] [...] s Final Nort h Thromboplastin (Ip) Co [facility] L ab (Internal) : [address] 08/03/2019 CBC W/ Auto BLD High Wbc 15.7 5.0-10.0 Final [place] Diff 10*3/uL 10*3/uL [facility] L ab (Internal) : [address] ? ? BLD Low Rbc 3.46 4.60-6.00 Final [place] 10*6/uL 10*6/uL [facility] L ab (Internal) : [address] ? ? BLD Low Hgb 9.7 g/dL 14.0-18.0 Final [place] g/dL [facility] L ab (Internal) : [address] zehra ? ? BLD Low Hct 31.0 % 41.0-51.0 Final [place] % [facility] L ab (Internal) : [address] ? ? BLD - Mcv 89.6 fL 80.0-96.0 Final [facility] L ab (Internal) : [address] ? ? BLD - Mch 28.0 pg 26.0-32.[address] [facility] L ab (Internal) : [address] [...] S - Alb 3.7 g/dL 3.5-5.0 Final [place] g/dL [facility] L ab (Internal) : [address] t ? ? S - Tbil 1.0 0.2-1.3 Final [place] mg/dL mg/dL [facility] L ab (Internal) : [address] ? ? S High Alp 221 U/L 38-126 Final [place] U/L [facility] L ab (Internal) : [address] ? ? S - Alt 69 U/L 21-72 U/L Final [place] (Sgpt) [facility] L ab (Internal) : [address] ? ? S High Ast 64 U/L 17-59 U/L Final [place] (Sgot) [facility] L ab (Internal) : [address] 08/03/2019 Troponin I, S High Trop 0.08 0.00-0.06 Final [place] Serum or Plasma NG/mL NG/mL [facility] ab (Internal) : [address] 08/03/2019 BNP (B-type S High Nt-pro 651 0-125 Final [place] Natriuretic bnp pg/mL pg/mL Count ry Peptide), [facility] Pro[facility]ormone (Inter nal): N-terminal, [address], [place] Immunoassay, Blood 08/03/2019 Differential, BLD High Polys 86 % 40-75 % Final [facility], Blood [facility] [place] L ab (Internal) : [address] ? ? BLD - Bands 0 % 0-5 % Final [facility] ab (Internal) : [address] ? ? BLD Low Lymphs 6 % 20-50 % Final [facility] ab (Internal) : [address] ? ? BLD - [place] 7 % 2-10 % Final [facility] ab (Internal) : [address] ? ? BLD - Eos 0 % 0-6 % Final [facility] ab (Internal) : [address] ? ? BLD - Baso 1 % 0-1 % Final [facility] L ab (Internal) : [address] t ? ? BLD - Atyp 0 % ? Final [facility] L ab (Internal) : [address] t ? ? BLD - Plts, adequate adequate Final [facility] L ab (Internal) : [address] t ? ? BLD ABNORMAL RBC abnormal normal Final [place] Morphol [facility] L ab (Internal) : [address] [...] Urinalysis, UR - UA-col yellow pale Final [place] Dipstick, or yellow [facility] Lab (Internal) : [address] t ? ? UR - UA-gera clear clear Final [facility] Hospital L ab (Internal) : [address] t ? ? UR - UA-spe 1.025 1.003-1.0 Final [facility] Grav [address] [place] [address] Hospital L ab (Internal) : [address] t ? ? UR - UA-pH 5.5 [pH] 4.6-8.0 Final [place] [pH] [facility] L ab (Internal) : [address] t ? ? UR - UA-marcelle negative negative Final [facility] L ab (Internal) : [address] t ? ? UR - UA-nit negative negative Final [facility] L ab (Internal) : [address] t ? ? UR - UA-pro negative negative Final [facility] L ab (Internal) : [address] t ? ? UR - UA-glu negative negative Final [facility] L ab (Internal) : [address] t ? ? UR - UA-ket negative negative Final [facility] L ab (Internal) : [address] t ? ? UR - UA-uro normal normal Final [place] ny [facility] ab (Internal) : [address] ? ? UR - UA-ny negative negative Final [place] i [facility] ab (Internal) : [address] ? ? UR ABNORMAL UA-blo large negative Final [place] od [facility] ab (Internal) : [address] 08/03/2019 Urinalysis, UR ABNORMAL UA-WBC 3-5 0-3 [hpf] [facility] Microscopic [hpf] Count [facility] ab (Internal) : [address] ? ? UR ABNORMAL UA-RBC 25-50 0-2 [hpf] Final Nort h [hpf] [facility] ab (Internal) : [address] ? ? UR ABNORMAL UA-amrit few none seen Final Nort h teria [hpf] [hpf] [facility] ab (Internal) : [address] ? ? UR ABNORMAL UA-epi few none seen Final Nort h thelial [hpf] [hpf] [facility] ab (Internal) : [address] ? ? UR ABNORMAL UA-muc few none seen Final Nort h us [hpf] [hpf] [facility] ab (Internal) : [address] ? ? UR - Hyalin rare ? Final North e C [hpf] [facility] ab (Internal) : [address] 08/03/2019 Culture ([place] UR - Final microbio ? Fi nal [place] Count), Urine logy Cou ntry results Hospital Lab (Internal) : [address] 03/22/2017 Venipuncture BLD ? Venpn* ? ? Final [facility] ab (Internal) : [address] 03/22/2017 BMP, Serum or S ? g/r 101 74-106 Final [place] Plasma mg/dL mg/dL [facility] ab (Internal) : [address] ? ? S High Bun 22 mg/dL 9-20 Final [place] mg/dL [facility] ab (Internal) : [address] ? ? S ? Crea 1.20 0.66-1.25 Final [place] mg/dL mg/dL [facility] L ab (Internal) : [address] t ? ? S ? Ca 9.3 8.4-10.2 Final [place] mg/dL mg/dL [facility] L ab (Internal) : [address] t ? ? S ? Na 137 137-145 Final [place] mmol/L mmol/L [facility] L ab (Internal) : [address] t ? ? S ? K 4.6 3.5-5.1 Final [place] mmol/L mmol/L [facility] L ab (Internal) : [address] t ? ? S ? Cl 102 98-107 Final [place] mmol/L mmol/L [facility] L ab (Internal) : [address] t ? ? S ? Tco2 27.0 22.0-30.0 Final [place] mmol/L mmol/L [facility] L ab (Internal) : [address] 03/14/2017 Venipuncture BLD ? Venpn* ? ? Final [facility] L ab (Internal) : [address] 03/14/2017 Cbc BLD ? Wbc 7.4 5.0-10.0 [facility]uL [facility] L ab (Internal) : [address] t ? ? BLD Low Rbc 4.03 4.60-6.00 Final [place] 10*6/uL 10*6/uL [facility] L ab (Internal) : [address] t ? ? BLD Low Hgb 11.8 14.0-18.0 Final [place] g/dL g/dL [facility] L ab (Internal) : [address] t ? ? BLD Low Hct 35.1 % 41.0-51.0 Final [place] % [facility] L ab (Internal) : [address] ? ? BLD ? Mcv 87.1 fL 80.0-96.0 Final [place] fL [facility] L ab (Internal) : [address] ? ? BLD ? Mch 29.3 pg 26.0-32.0 Final [place] pg [facility] L ab (Internal) : [...] Bun 27 mg/dL 9-20 Final [place] mg/dL [facility] L ab (Internal) : [address] ? ? PLASMA ? Crea 1.20 0.66-1.25 Final [place] mg/dL mg/dL [facility] L ab (Internal) : [address] ? ? PLASMA ? Ca 8.8 8.4-10.2 Final [place] mg/dL mg/dL [facility] L ab (Internal) : [address] t ? ? PLASMA ? Na 137 137-145 Final [place] mmol/L mmol/L [facility] L ab (Internal) : [address] ? ? PLASMA ? K 4.5 3.5-5.1 Final [place] mmol/L mmol/L [facility] L ab (Internal) : [address] t ? ? PLASMA ? Cl 106 98-107 Final [place] mmol/L mmol/L [facility] L ab (Internal) : [address] t ? ? PLASMA ? Tco2 25.0 22.0-30.0 Final [place] mmol/L mmol/L [facility] L ab (Internal) : [address] 03/14/2017 Troponin I, S ? Trop <0.06 0.00-0.06 Final [place] Serum or Plasma NG/mL NG/mL [facility] L ab (Internal) : [address] 03/13/2017 Venipuncture BLD ? Venpn* ? ? Final [facility] L ab (Internal) : [address] 03/13/2017 Troponin I, PLASMA ? Trop <0.06 0.00-0.06 Final [place] Serum or Plasma NG/mL NG/mL [facility] L ab (Internal) : [address] 03/13/2017 Troponin I, S ? Trop <0.06 0.00-0.06 Final [place] Serum or Plasma NG/mL NG/mL [facility] L ab (Internal) : [address] 03/13/2017 CMP, Serum or S ? g/r 106 74-106 Final [place] Plasma mg/dL mg/dL [facility] L ab (Internal) : [address] t ? ? S High Bun 38 mg/dL 9-20 Final [place] mg/dL [facility] L ab (Internal) : [address] t ? ? S High Crea 2.20 0.66-1.25 Final [place] mg/dL mg/dL [facility] L ab (Internal) : [address] t ? ? S High Ca 10.4 8.4-10.2 Final [place] mg/dL mg/dL [facility] L ab (Internal) : [address] t ? ? S ? Na 142 137-145 Final [place] mmol/L mmol/L [facility] L ab (Internal) : [address] t ? ? S ? K 4.4 3.5-5.1 Final [place] mmol/L mmol/L [facility] L ab (Internal) : [address] t ? ? S ? Cl 100 98-107 Final [place] mmol/L mmol/L [facility] L ab (Internal) : [address] t ? ? S ? Tco2 27.0 22.0-30.0 Final [place] mmol/L mmol/L [facility] L ab (Internal) : [address] t ? ? S High Tp 8.6 g/dL 6.3-8.2 Final [place] g/dL [facility] L ab (Internal) : [address] t ? ? S ? Alb 4.8 g/dL 3.5-5.0 Final [place] g/dL [facility] L ab (Internal) : [address] t ? ? S High Tbil 1.4 0.2-1.3 Final [place] mg/dL mg/dL [facility] L ab (Internal) : [address] t ? ? S ? Alp 85 U/L 38-126 Final [place] U/L [facility] L ab (Internal) : [address] t ? ? S ? Alt 25 U/L 21-72 U/L Final [place] (Sgpt) [facility] L ab (Internal) : [address] t ? ? S ? Ast 32 U/L 17-59 U/L Final [place] (Sgot) [facility] L ab (Internal) : [address] t 03/13/2017 CBC W/ Auto BLD ? Wbc 9.1 5.0-10.0 Final [place] Diff 10*3/uL 10*3/uL [facility] L ab (Internal) : [address] t ? ? BLD ? Rbc 5.06 4.60-6.00 Final [place] 10*6/uL 10*6/uL [facility] L ab (Internal) : [address] t ? ? BLD ? Hgb 14.8 14.0-18.0 Final [place] g/dL g/dL [facility] L ab (Internal) : [address] t ? ? BLD ? Hct 44.0 % 41.0-51.0 Final [facility] L ab (Internal) : [address] t ? ? BLD ? Mcv 87.0 fL 80.0-96.0 Final [place] fL [facility] L ab (Internal) : [address] t ? ? BLD ? Mch 29.2 pg 26.0-32.0 Final [place] pg [facility] L ab (Internal) : [address] t ? ? BLD ? Mchc 33.6 31.0-35.0 Final [place] g/dL g/dL [facility] L ab (Internal) : [address] t ? ? BLD ? Rdw 13.8 % 11.5-14.5 Final [facility] ab (Internal) : [address], [place] ? ? BLD ? Plt 327 130-450 Final [place] 10*3/uL 10*3/uL [facility] ab (Internal) : [address], [place] ? ? BLD ? Anc 4.74 ? Final [place] 10*3/uL [facility] ab (Internal) : [address], [place] ? ? BLD ? Neutro 52.2 % 40.0-75.0 Final [facility] ab (Internal) : [address], [place] ? ? BLD ? Lymph 35.2 % 20.0-50.0 Final [facility] ab (Internal) : [address], [place] ? ? BLD ? [place] 9.0 % 2.0-10.0 Final [facility] ab (Internal) : [address], [place] ? ? BLD ? Eos 2.6 % 1.0-6.0 % Final [facility] ab (Internal) : [address], [place] ? ? BLD ? Baso 0.7 % 0.0-1.0 % Final [facility] ab (Internal) : [address], [place] ? ? BLD ? Ig 0.3 % 0.0-0.9 % Final [facility] ab (Internal) : [address] [...]
[2021-08-19 10:12] LABS: Abs Immature Grans 0.03 10^3/uL (0.0-0.06); Absolute Basophil Count 0.07 10^3/uL (0.0-0.2); Absolute Eosinophil Count 0.47 10^3/uL (0.0-0.7); Absolute Lymphocyte Count 1.21 10^3/uL (1.2-3.4); Absolute Monocyte Count 0.72 10^3/uL (0.1-0.8); Absolute Neutrophil Count 5.34 10^3/uL (1.2-6.7); Basophils % 0.9; HCT 44.2 % (40.0-50.0); HGB 13.8 g/dL (13.5-17.5); Immature Grans % 0.4; Lymphocytes % 15.4; MCH 26.7 pg (27.0-33.0); MCHC 31.2 % (32.0-36.0); MCV 85.7 fL (80-95); MPV 9.9 fL (8.0-11.0); Monocytes % 9.2; Neutrophils % 68.1; Nucleated RBC 0 %; Platelet Count 274 10^3/uL (130-400); RBC 5.16 10^6/uL (4.36-5.78); RDW 16.6 % (11.8-14.1); RDW-SD 52.3 fL; WBC 7.84 10^3/uL (4.4-10.8)
[2021-08-19 14:10] LABS: ALT 27 U/L (16-63); AST 21 U/L (15-37); Alkaline Phosphatase 85 U/L (46-116); Anion Gap 7.2 mmol/L (3-11); BUN 14 mg/dL (7-18); Bilirubin, Total 0.6 mg/dL (0.2-1.0); CO2 29.8 mmol/L (21.0-32.0); CREATININE 0.8 mg/dL (0.70-1.30); Calcium 8.7 mg/dL (8.5-10.1); Chloride 104 mmol/L (98-107); Glucose 95 mg/dL (74-106); Potassium 3.9 mmol/L (3.5-5.1); Sodium 141 mmol/L (136-145); TSH 1.31 uIU/mL (0.36-3.74); Total Protein 6.2 g/dL (6.4-8.2)
== END 2021-08-19 05:59 | disposition home or self-care (01) ==
LOC: LBN 05:58
PROVIDERS: PCP Family Medicine; Visit Provider Nurse Practitioner Family
DX: G30.9 Alzheimer's disease, unspecified (principal)
CPT/HCPCS: 80053; 84443; 85025; 87086

== ENCOUNTER 2021-08-20 00:45 | Outpatient (REF) | payer MEDICARE, MEDICAID, SELFPAY ==
[2021-08-20 01:54] LABS: Bilirubin Negative (Negative); Blood Moderate (Negative); Clarity Cloudy (Clear); Glucose Negative (Negative); Ketones Negative (Negative); Leukocyte Esterase Large (Negative); Nitrite Negative (Negative); Specific Gravity 1.015 (1.005-1.025); Urobilinogen 0.2 EU/dL (Up TO 0.2)
[2021-08-20 02:01] LABS: WBC >50 HPF (0-5)
[2021-08-20 02:03] LABS: C & S Indicated? C&S Done As Ordered
== END 2021-08-20 00:46 | disposition home or self-care (01) ==
LOC: LBN 00:45
PROVIDERS: PCP Family Medicine; Visit Provider Family Medicine
DX: N39.0 Urinary tract infection, site not specified (principal); R41.82 Altered mental status, unspecified
CPT/HCPCS: 87077; 81003; 81015; 87086; 87186

== ENCOUNTER 2021-09-08 18:21 | Outpatient (REF) | payer MEDICARE, MEDICAID, SELFPAY ==
[2021-09-08 19:30] LABS: Absolute Basophil Count 0.06 10^3/uL (0.0-0.2); Absolute Eosinophil Count 0.39 10^3/uL (0.0-0.7); Absolute Lymphocyte Count 1.12 10^3/uL (1.2-3.4); Absolute Monocyte Count 0.68 10^3/uL (0.1-0.8); Absolute Neutrophil Count 5.99 10^3/uL (1.2-6.7); Basophils % 0.7; Eosinophils % 4.7; HGB 14.2 g/dL (13.5-17.5); Immature Grans % 1.2; Lymphocytes % 13.4; MCHC 30.9 % (32.0-36.0); MCV 87.5 fL (80-95); MPV 9.9 fL (8.0-11.0); Monocytes % 8.2; Neutrophils % 71.8; Nucleated RBC 0 %; Platelet Count 277 10^3/uL (130-400); RBC 5.26 10^6/uL (4.36-5.78); RDW 16.2 % (11.8-14.1); RDW-SD 51.7 fL; WBC 8.34 10^3/uL (4.4-10.8)
[2021-09-08 19:36] LABS: Anion Gap 9.6 mmol/L (3-11); BUN 16 mg/dL (7-18); CO2 28.4 mmol/L (21.0-32.0); CREATININE 0.9 mg/dL (0.70-1.30); Calcium 8.7 mg/dL (8.5-10.1); Chloride 106 mmol/L (98-107); Glucose 87 mg/dL (74-106); Potassium 3.8 mmol/L (3.5-5.1); Sodium 144 mmol/L (136-145)
[2021-09-08 20:15] LABS: Hemoglobin A1C 6.2 % (<5.7)
== END 2021-09-08 18:22 | disposition home or self-care (01) ==
LOC: LBN 18:21
PROVIDERS: PCP Family Medicine; Visit Provider Family Medicine
DX: E11.9 Type 2 diabetes mellitus without complications (principal)
CPT/HCPCS: 80048; 83036; 85025

== ENCOUNTER 2021-09-19 20:32 | Inpatient (IN) | payer MEDICARE, MEDICAID, SELFPAY ==
[2021-09-19 20:30] VITALS: BP 115/71; PULSE 91; RESP 20; O2SAT 92
--- NOTE | 2021-09-19 20:30 | RT.EKG_ITS ---
APPROVED REPORT Exam: Resting ECG Reason for Exam: [facility] Patient Location: E HR:90 bpm ECG Measurements Heart Rate 90 AXIS NJ 191 P 64 QRSd 107 QRS 42 QT 391 T 45 QTc 478 Conclusion Sinus rhythm...normal P axis, V-rate 60- 99 Probable left atrial enlargement...P >50mS, <-0.10mV V1 Borderline ST depression, anterolateral leads...ST <-0.07mV, I aVL V2-V6
--- NOTE | 2021-09-19 20:45 | DI.RAD_ITS ---
Exam(s) XR PORTABLE CHEST AP EXAM: XR PORTABLE CHEST AP CLINICAL HISTORY: fever, pui. TECHNIQUE: 2D digital imaging was performed. COMPARISON: CR,XR XR CHEST 1V IN DI DEPT from 04/11/2021 FINDINGS: Heart size is normal. 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 Chest leads in place. There is elevation left hemidiaphragm. There is also platelike atelectasis and mild infiltrate in th e left lung base. Right lung appears clear. No pleural effusions. No pulmonary edema. No pneumoth orax. IMPRESSION: Elevated left hemidiaphragm with atelectasis and mild infiltrate in the left lung base. No obvious p leural effusions. Previous sternotomy and CABG. Heart size normal. No pulmonary edema evident. DATA REPOSITORY: RADIATION DOSE DELIVERED: All CT scans at this facility use at least one of these dose optimization techniques: automated exposure control; mA and/or kV adjustment per patient size (includes targeted e xams where dose is matched to clinical indication); or iterative reconstruction.
[2021-09-19 20:49] VITALS: TEMP 38.8
[2021-09-19] MEDS: Acetaminophen 650 MG SUPP (20:58)
--- NOTE | 2021-09-19 21:15 | DI.CT_ITS ---
Exam(s) CT HEAD WO EXAM: CT HEAD WO CLINICAL HISTORY: altered, pui. TECHNIQUE: Imaging Protocol: Axial computed tomography images with coronal and sagittal reformatted images were created and reviewed COMPARISON: CT CT HEAD WO from 04/11/2021 FINDINGS: There are no skull fractures nor fluid in the visualized paranasal sinuses. Again noted is an area of encephalomalacia in the right occipital lobe consistent with non recent inf arct. There is enlargement of both lateral ventricles as well as the 3rd ventricle again noted, unchanged. The superior is out of proportion relative to the overlying cortical sulci, similar to previous. Th ere is mild periventricular hypodensity again noted, unchanged. No evidence of obvious new territori al infarction. IMPRESSION: No acute intracranial findings although there is again noted evidence of non recent right occipital l obe infarct as well as dilatation of the ventricles at a proportion when compared to the overlying co rtical sulci which brings to mind the possibility of an element of normal pressure hydrocephalus. Co rrelation with any clinical triad findings of incontinence, gait disturbance, and dementia is recomme nded. RADIATION DOSE DELIVERED: 887.71mGy.cm Total DLP DATA REPOSITORY: All CT scans at this facility are submitted to the National Radiology Data Registry (NRDR) Dose Index Registry (DIR) with the [employer] (ACR). RADIATION OPTIMIZATION: All CT scans at this facility use at least one of these dose optimization te chniques: automated exposure control; mA and/or kV adjustment per patient size (includes targeted exa ms where dose is matched to clinical indication); or iterative reconstruction.
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
[2021-09-19 21:31] LABS: Abs Immature Grans 0.07 10^3/uL (0.0-0.06); Absolute Basophil Count 0.04 10^3/uL (0.0-0.2); Absolute Lymphocyte Count 0.41 10^3/uL (1.2-3.4); Absolute Monocyte Count 1.05 10^3/uL (0.1-0.8); Absolute Neutrophil Count 12.97 10^3/uL (1.2-6.7); Basophils % 0.3; HCT 44.1 % (40.0-50.0); HGB 13.7 g/dL (13.5-17.5); Immature Grans % 0.5; Lymphocytes % 2.8; MCH 26.9 pg (27.0-33.0); MCHC 31.1 % (32.0-36.0); MCV 86.6 fL (80-95); MPV 9.5 fL (8.0-11.0); Monocytes % 7.2; Neutrophils % 89.2; Nucleated RBC 0 %; Platelet Count 256 10^3/uL (130-400); RBC 5.09 10^6/uL (4.36-5.78); RDW 16.3 % (11.8-14.1); RDW-SD 52.5 fL; Source Nasopharynx; WBC 14.54 10^3/uL (4.4-10.8)
[2021-09-19 21:33] LABS: Lactate 2.3 mmol/L (0.6-1.4)
[2021-09-19 21:36] LABS: Bilirubin Negative (Negative); Blood Small (Negative); Clarity Cloudy (Clear); Glucose Negative (Negative); Ketones Negative (Negative); Leukocyte Esterase Moderate (Negative); Nitrite Negative (Negative); pH 8.5 (5-8)
[2021-09-19 21:43] LABS: Bacteria Packed HPF (Negative); C & S Indicated? Yes; Crystals Negative HPF (Negative); Epithelial Cells Negative HPF (Negative); Mucus Negative (Negative); WBC >50 HPF (0-5)
--- NOTE | 2021-09-19 21:53 | DI.VRAD_ITS ---
PROCEDURE INFORMATION: Exam: CT Head Without Contrast Exam date and time: 09/19/2021 21:26 Age: 71 years old Clinical indication: Altered mental status/memory loss TECHNIQUE: Imaging protocol: Computed tomography of the head without contrast. COMPARISON: CT HEAD WO 04/11/2021 10:37 FINDINGS: Brain: Atrophy and chronic appearing white matter changes. Right occipital infarct again seen. No edema or hemorrhage. Cerebral ventricles: Dilation of the ventricular system greater than expected for the degree of atrophy. Ventricular caliber is stable. Paranasal sinuses: No acute sinusitis. Mastoid air cells: No mastoid effusion. Bones/joints: No acute fracture. Soft tissues: No suspicious lesions. IMPRESSION: 1. No acute intracranial findings. 2. Question normal pressure hydrocephalus, would be stable. Dictated and Authenticated by: Tova Elliott MD. Ordering:YVETTE Best MD
[2021-09-19 21:55] LABS: ALT 75 U/L (16-63); AST 75 U/L (15-37); Albumin 2.8 g/dL (3.4-5.0); Alkaline Phosphatase 96 U/L (46-116); Anion Gap 9.9 mmol/L (3-11); BUN 18 mg/dL (7-18); Bilirubin, Total 1.2 mg/dL (0.2-1.0); CO2 26.1 mmol/L (21.0-32.0); CREATININE 1.2 mg/dL (0.70-1.30); Calcium 8.8 mg/dL (8.5-10.1); Chloride 103 mmol/L (98-107); Glucose 151 mg/dL (74-106); Magnesium 1.8 mg/dL (1.8-2.4); Potassium 3.3 mmol/L (3.5-5.1); Sodium 139 mmol/L (136-145); TSH (W/Ref FT4) 0.41 uIU/mL (0.36-3.74); Total Protein 7.3 g/dL (6.4-8.2); Troponin I < 50 ng/L (<or=60)
--- NOTE | 2021-09-19 21:58 | DI.VRAD_ITS ---
PROCEDURE INFORMATION: Exam: XR Chest Exam date and time: 09/19/2021 20:58 Age: 71 years old Clinical indication: Fever TECHNIQUE: Imaging protocol: XR of the chest. Views: 1 view. COMPARISON: XR CHEST 1V IN DI DEPT 04/11/2021 10:45 FINDINGS: Lungs: Probable scattered mild subsegmental atelectasis. Low lung volumes. Pleural spaces: No pleural effusion. No pneumothorax. Heart/Mediastinum: CABG. No significant cardiomegaly. Bones/joints: Median sternotomy wires. IMPRESSION: Probable scattered mild subsegmental atelectasis. Dictated and Authenticated by: Tova Elliott MD. Ordering:YVETTE Best MD
[2021-09-19 22:07] LABS: COVID-19 PCR Negative (Negative); Influenza A PCR Negative (Negative); Influenza B PCR Negative (Negative); RSV PCR Negative (Negative)
--- NOTE | 2021-09-19 22:45 | DI.CT_ITS ---
Exam(s) CT RENAL COLIC WO EXAM: CT RENAL COLIC WO CLINICAL HISTORY: mulitple kidney infections, consider stones. TECHNIQUE: Imaging Protocol: Axial computed tomography images with coronal and sagittal reformatted images were created and reviewed CONTRAST MATERIAL: Intravenous: none Oral: None COMPARISON: No exams were available for comparison FINDINGS: VISUALIZED LUNG BASES: Mild infiltrates in the visualized lung bases. Also tiny amount of pleural fl uid on the right side. ABDOMEN: Images are degraded by motion artifact. LIVER: There are no obvious focal hepatic lesions evident of this noninfused study. GALLBLADDER/BILIARY: Gallbladder appears slightly distended. No obvious gallstones within the lumen nor gallbladder wall edema. CBD is not dilated. PANCREAS: Mild streaking adjacent to the pancreatic tail. No peripancreatic fluid collection. No di latation pancreatic duct. Pancreatic head and uncinate process are blurred due to respiratory motion artifact. However, there is no obvious mass at this level. SPLEEN: Spleen is not enlarged. No obvious intrasplenic lesions. ADRENALS: There are no significant adrenal masses. KIDNEYS:There is mild dilatation left collecting system which is due to a 3 x 3 millimeter calculus i n the left distal ureter just above the UVJ. Diameter of the left ureter above this level is 6 brenda meters. There is a solitary remaining 2 millimeter calculus at the mid pole level of the left kidney . No obvious calculi evident within the opposite-right kidney. There is no dilatation of the right collecting system. No ominous renal masses evident ABDOMINAL AORTA: Abdominal aorta is calcified but not enlarged. Common iliac arteries are calcified but not enlarged. LYMPH NODES: There is no retroperitoneal nor paraaortic adenopathy. ABDOMINAL WALL: No evidence of significant anterior abdominal hernia. There is a density in the jone on of the left internal inguinal ring which is possibly related to prior hernia repair at this level. This finding measures 3.5 by 1.9 cm. There are no bowel loops within the inguinal canal. GI: There is no evidence of bowel obstruction, free air, nor abscess. PELVIS: LYMPH NODES: There is no intrapelvic nor inguinal adenopathy. GI: No evidence of appendicitis.There is diverticulosis in the descending-left colon. Mild streaking in the left paracolic gutter. Cannot exclude subtle diverticulitis. No free air. No abscess evide nt. URINARY BLADDER: No calculi nor obvious masses evident REPRODUCTIVE: Prostate size upper normal. Seminal vesicles unremarkable. OSSEOUS: There is a large Schmorl's node invagination in the superior endplate of L4, age indetermina te. IMPRESSION: 1. Main acute finding here is mild left-sided hydronephrosis and hydroureter due to a 3 x 3 millimete r calculus in the distal left ureter just above the UVJ. There is a solitary 2 millimeter remaining calculus in left kidney. No calculi in the opposite-right kidney nor dilatation of the right collect ing system. 2. There is a 3.5 x 1.5 centimeter density in the region of the left internal inguinal ring. This is possibly related to prior inguinal hernia repair. Correlation with past surgical history recommende d. 3. Diverticulosis of the descending-left colon and sigmoid. Mild streaking in the paracolic gutter. Cannot exclude subtle diverticulitis. Other findings as above RADIATION DOSE DELIVERED: 1,129.6mGy.cm Total DLP DATA REPOSITORY: All CT scans at this facility are submitted to the National Radiology Data Registry (NRDR) Dose Index Registry (DIR) with the [employer] (ACR). RADIATION OPTIMIZATION: All CT scans at this facility use at least one of these dose optimization te chniques: automated exposure control; mA and/or kV adjustment per patient size (includes targeted exa ms where dose is matched to clinical indication); or iterative reconstruction.
[2021-09-19 22:48] VITALS: BP 116/69; PULSE 76; RESP 28; TEMP 37.4; O2SAT 94
[2021-09-19] MEDS: Normal Saline 1,000 ML 1000 ML IV (23:10)
[2021-09-19] MEDS: cefTRIAXone 2 GM/50 ML BAG IVPB (23:15)
[2021-09-19 23:17] VITALS: BP 118/72; PULSE 73; RESP 26; O2SAT 96
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
[2021-09-19 23:25] LABS: Troponin I < 50 ng/L (<or=60)
[2021-09-19 23:50] LABS: Procalcitonin 0.3 ng/mL
--- OUTSIDE RECORDS SUMMARY | 2021-09-19 23:59 | XMS_ITS ---
:1950 Author Care Team Providers Name Role Phone FLACO JUNG Primary Care Provider [phone] Allergies Code Code System Name Reaction Severity [...] BLD High Pt 23.8 S 9.1-11.7 Final [place] Time S [facility] L ab (Internal) : [address] t ? ? BLD ? Inr 2.3 ? Final [facility] L ab (Internal) : [address] 10/12/2019 CBC W/ Auto BLD High Wbc 10.2 5.0-10.0 Final [place] Diff 10*3/uL 10*3/uL [facility] L ab (Internal) : [address] t ? ? BLD ? Rbc 5.20 4.60-6.00 Final [place] 10*6/uL 10*6/uL [facility] L ab (Internal) : [address] t ? ? BLD Low Hgb 13.0 14.0-18.0 Final [place] g/dL g/dL [facility] L ab (Internal) : [address] t ? ? BLD ? Hct 42.9 % 41.0-51.0 Final [facility] L ab (Internal) : [address] t ? ? BLD ? Mcv 82.5 fL 80.0-96.0 Final [facility] L ab (Internal) : [address] t ? ? BLD Low Mch 25.0 pg 26.0-32.0 Final [facility] L ab (Internal) : [address] t ? ? BLD Low Mchc 30.3 31.0-35.0 Final [place] g/dL g/dL [facility] L ab (Internal) : [address] t ? ? BLD High Rdw 15.9 % 11.5-14.5 Final [facility] L ab (Internal) : [address] t ? ? BLD ? Plt 334 130-450 Final [place] 10*3/uL 10*3/uL [facility] L ab (Internal) : [address] t ? ? BLD ? Anc 7.28 ? Final [place] 10*3/uL [facility] L ab (Internal) : [address] t ? ? BLD ? Neutro 71.4 % 40.0-75.0 Final [place] % [facility] ([facility] : [address] t ? ? BLD Low Lymph 14.6 % 20.0-50.0 Final [place] % [facility] (Internal[facility] : [address] t ? ? BLD High [place] 10.4 % 2.0-10.0 Final [place] % [facility] (Internal[facility] : [address] t ? ? BLD ? Eos 2.6 % 1.0-6.0 % Final [facility] L ab (Internal) : [address] t ? ? BLD ? Baso 0.7 % 0.0-1.0 % Final [facility] L ab (Internal) : [address] t ? ? BLD ? Ig 0.3 % 0.0-0.9 % Final [facility] L ab [...] ? S ? Tco2 30.0 22.0-30.0 Final [place] mmol/L mmol/L [facility] L ab (Internal) : [address] t ? ? S ? Tp 8.0 g/dL 6.3-8.2 Final [place] g/dL [facility] L ab (Internal) : [address] t ? ? S ? Alb 4.4 g/dL 3.5-5.0 Final [place] g/dL [facility] L ab (Internal) : [address] t ? ? S ? Tbil 0.6 0.2-1.3 Final [place] mg/dL mg/dL [facility] L ab (Internal) : [address] t ? ? S ? Alp 122 U/L 38-126 Final [place] U/L [facility] L ab (Internal) : [address] t ? ? S ? Alt 26 U/L 21-72 U/L Final [place] (Sgpt) [facility] L ab (Internal) : [address] t ? ? S ? Ast 34 U/L 17-59 U/L Final [place] (Sgot) [facility] L ab (Internal) : [address] 10/12/2019 RBC Morphology, BLD ? Aniso occasion ? Fi nal [place] Blood al [facility] L ab (Internal) : [address] 10/12/2019 Prothrombin BLD High Pt 24.6 S 9.1-11.7 Final [place] Time [facility] L ab (Internal) : [address] ? ? BLD ? Inr 2.4 ? Final [facility] L ab (Internal) : [address] 10/12/2019 Urinalysis, UR ? UA-col yellow pale Final [place] Dipstick, or yellow [facility] Lab (Internal) : [address] t ? ? UR ABNORMAL UA-gera hazy clear Final [place] ear [facility] L ab (Internal) : [address] t ? ? UR ? UA-spe 1.020 1.003-1.0 Final [place] c Grav 35 [facility] L ab (Internal) : [address] ? ? UR ? UA-pH 6.0 [pH] 4.6-8.0 Final [place] [pH] [facility] L ab (Internal) : [address] t ? ? UR ? UA-marcelle negative negative Final [place] k Est [facility] L ab (Internal) : [address] t ? ? UR ABNORMAL UA-nit positive negative Final Nor th rite [facility] L ab (Internal) : [address] t ? ? UR ? UA-pro negative negative Final [place] t [facility] ab (Internal) : [address] ? ? UR ? UA-glu negative negative Final [place] c [facility] ab (Internal) : [address] ? ? UR ? UA-ket negative negative Final [place] one [facility] ab (Internal) : [address] ? ? UR ? UA-uro normal normal Final [place] ny [facility] ab (Internal) : [address] t ? ? UR ? UA-ny negative negative Final [place] i [facility] ab (Internal) : [address] t ? ? UR ABNORMAL UA-blo trace negative Final [place] od [facility] L ab (Internal) : [address] 10/12/2019 Urinalysis, UR ABNORMAL UA-WBC 3-5 0-3 [hpf] [facility] Microscopic [hpf] Count [facility] L ab (Internal) : [address] t ? ? UR ? UA-RBC 0-2 0-2 [hpf] [facility] [hpf] [facility] ab (Internal) : [address] t ? ? UR ABNORMAL UA-amrit many none seen Final [facility] [hpf] [hpf] [facility] ab (Internal) : [address] t ? ? UR ? UA-epi none none seen Final [place] thelial seen [hpf] [facility] [hpf] [facility] ab (Internal) : [address] t ? ? UR ? UA-muc none none seen Final [place] us seen [hpf] [facility] [hpf] [facility] ab (Internal) : [address] 10/12/2019 Troponin I, S ? Trop <0.06 0.00-0.06 [facility] Serum or Plasma NG/mL NG/mL [facility] : [address] t 10/12/2019 BNP (B-type S High Nt-pro 263 0-125 Final [place] Natriuretic bnp pg/mL pg/mL Count ry Peptide), Hospita l Lab Prohormone (Inter nal): N-terminal, [address] [place] Immunoassay, Blood 10/12/2019 Culture ([place] UR ? Final microbio ? Fi nal [place] Count), Urine logy Cou ntry results Hospital Lab (Internal) : [address] t 09/04/2019 Prothrombin BLD High Pt 18.2 S 9.1-11.7 Final [facility] L ab (Internal) : [address] ? ? BLD - Inr 1.9 ? Final [facility] ab (Internal) : [address] t 08/31/2019 Magnesium, QN, S - mg 2.2 1.6-2.3 [facility] Serum or Plasma mg/dL mg/dL [facility] ab (Internal) : [address] t 08/31/2019 Prothrombin BLD High Pt 16.6 S 9.1-11.7 Final [facility] L ab (Internal) : [address] ? ? BLD - Inr 1.7 ? [facility] ab (Internal) : [address] t 08/27/2019 Prothrombin BLD High Pt 15.5 S 9.1-11.7 Final [facility] L ab (Internal) : [address] ? ? BLD - Inr 1.6 ? Final [facility] ab (Internal) : [address] t 08/22/2019 Prothrombin BLD High Pt 15.5 S 9.1-11.7 Final [facility] L ab (Internal) : [address] t ? ? BLD - Inr 1.6 ? [facility] ab (Internal) : [address] t 08/20/2019 Prothrombin BLD High Pt 15.0 S 9.1-11.7 Final [facility] L ab (Internal) : [address] t ? ? BLD - Inr 1.6 ? Final [facility] L ab (Internal) : [address] 08/17/2019 Prothrombin BLD High Pt 29.9 S 9.1-11.7 Final [place] Time S [facility] L ab (Internal) : [address] ? ? BLD - Inr 3.2 ? Final [facility] ab (Internal) : [...] Auto BLD High Wbc 15.7 5.0-10.0 Final [place] Diff 10*3/uL 10*3/uL [facility] L ab (Internal) : [address] ? ? BLD Low Rbc 3.46 4.60-6.00 Final [place] 10*6/uL 10*6/uL [facility] L ab (Internal) : [address] ? ? BLD Low Hgb 9.7 g/dL 14.0-18.0 Final [place] g/dL [facility] L ab (Internal) : [address] zehra ? ? BLD Low Hct 31.0 % 41.0-51.0 Final [place] % [facility] L ab (Internal) : [address] ? ? BLD - Mcv 89.6 fL 80.0-96.0 Final [facility] L ab (Internal) : [address] ? ? BLD - Mch 28.0 pg 26.0-32.0 Final [facility] L ab (Internal) : [address], [place] ? ? BLD - Mchc 31.3 31.0-35.0 Final [place] g/dL g/dL [facility] (Internal) : [address] ? ? BLD High Rdw 15.2 % 11.5-14.5 Final [place] [facility] (Internal) : [address] ? ? BLD - Plt [...] S - Alb 3.7 g/dL 3.5-5.0 Final [place] g/dL [facility] L ab (Internal) : [address] t ? ? S - Tbil 1.0 0.2-1.3 Final [place] mg/dL mg/dL [facility] L ab (Internal) : [address] ? ? S High Alp 221 U/L 38-126 Final [place] U/L [facility] L ab (Internal) : [address] ? ? S - Alt 69 U/L 21-72 U/L Final [place] (Sgpt) [facility] L ab (Internal) : [address] ? ? S High Ast 64 U/L 17-59 U/L Final [place] (Sgot) [facility] L ab (Internal) : [address] 08/03/2019 Troponin I, S High Trop 0.08 0.00-0.06 Final [place] Serum or Plasma NG/mL NG/mL [facility] ab (Internal) : [address] 08/03/2019 BNP (B-type S High Nt-pro 651 0-125 Final [place] Natriuretic bnp pg/mL pg/mL Count ry Peptide), [facility] Lab Prohormone (Inter nal): N-terminal, [address], [place] Immunoassay, Blood 08/03/2019 Differential, BLD High Polys 86 % 40-75 % Final [facility], Blood [facility] L ab (Internal) : [address] ? ? BLD - Bands 0 % 0-5 % Final [facility] ab (Internal) : [address] ? ? BLD Low Lymphs 6 % 20-50 % Final [facility] ab (Internal) : [address] ? ? BLD - [place] 7 % 2-10 % Final [facility] ab (Internal) : [address] ? ? BLD - Eos 0 % 0-6 % Final [facility] ab (Internal) : [address] ? ? BLD - Baso 1 % 0-1 % Final [facility] L ab (Internal) : [address] t ? ? BLD - Atyp 0 % ? Final [facility] L ab (Internal) : [address] t ? ? BLD - Plts, adequate adequate Final [facility] L ab (Internal) : [address] t ? ? BLD ABNORMAL RBC abnormal normal Final [place] Morphol [facility] L ab (Internal) : [address] t ? ? BLD - Aniso occasion ? Final [facility] L ab (Internal) : [address] t 08/03/2019 Neutrophil BLD - Anc-ma 13.53 ? Final N orth Count, Absolute nual 10*3/uL [facility] (Anc), Blood Hosp ital Lab (Internal) : [address] 08/03/2019 Urinalysis, UR - UA-col yellow pale Final [place] Dipstick, or yellow [facility] Lab (Internal) : [address] t ? ? UR - UA-gera clear clear Final [facility] Hospital L ab (Internal) : [address] t ? ? UR - UA-spe 1.025 1.003-1.0 Final [facility] Grav [address] [place] [address] Hospital L ab (Internal) : [address] t ? ? UR - UA-pH 5.5 [pH] 4.6-8.0 Final [place] [pH] [facility] L ab (Internal) : [address] t ? ? UR - UA-marcelle negative negative Final [facility] L ab (Internal) : [address] t ? ? UR - UA-nit negative negative Final [facility] L ab (Internal) : [address] t ? ? UR - UA-pro negative negative Final [facility] L ab (Internal) : [address] t ? ? UR - UA-glu negative negative Final [facility] L ab (Internal) : [address] t ? ? UR - UA-ket negative negative Final [facility] L ab (Internal) : [address] t ? ? UR - UA-uro normal normal Final [place] ny [facility] ab (Internal) : [address] ? ? UR - UA-ny negative negative Final [place] i [facility] ab (Internal) : [address] ? ? UR ABNORMAL UA-blo large negative Final [place] od [facility] ab (Internal) : [address] 08/03/2019 Urinalysis, UR ABNORMAL UA-WBC 3-5 0-3 [hpf] [facility] Microscopic [hpf] Count [facility] ab (Internal) : [address] ? ? UR ABNORMAL UA-RBC 25-50 0-2 [hpf] Final Nort h [hpf] [facility] ab (Internal) : [address] ? ? UR ABNORMAL UA-amrit few none seen Final Nort h teria [hpf] [hpf] [facility] ab (Internal) : [address] ? ? UR ABNORMAL UA-epi few none seen Final Nort h thelial [hpf] [hpf] [facility] ab (Internal) : [address] ? ? UR ABNORMAL UA-muc few none seen Final Nort h us [hpf] [hpf] [facility] ab (Internal) : [address] ? ? UR - Hyalin rare ? Final North e C [hpf] [facility] ab (Internal) : [address] 08/03/2019 Culture ([place] UR - Final microbio ? Fi nal [place] Count), Urine logy Cou ntry results Hospital Lab (Internal) : [address] 03/22/2017 Venipuncture BLD ? Venpn* ? ? Final [facility] ab (Internal) : [address] 03/22/2017 BMP, Serum or S ? g/r 101 74-106 Final [place] Plasma mg/dL mg/dL [facility] ab (Internal) : [address] ? ? S High Bun 22 mg/dL 9-20 Final [place] mg/dL [facility] ab (Internal) : [address] ? ? S ? Crea 1.20 0.66-1.25 Final [place] mg/dL mg/dL [facility] (Internal) : [address] t ? ? S ? Ca 9.3 8.4-10.2 Final [place] mg/dL mg/dL [facility] L ab (Internal) : [address] t ? ? S ? Na 137 137-145 Final [place] mmol/L mmol/L [facility] L ab (Internal) : [address] t ? ? S ? K 4.6 3.5-5.1 Final [place] mmol/L mmol/L [facility] L ab (Internal) : [address] t ? ? S ? Cl 102 98-107 Final [place] mmol/L mmol/L [facility] L ab (Internal) : [address] t ? ? S ? Tco2 27.0 22.0-30.0 Final [place] mmol/L mmol/L [facility] L ab (Internal) : [address] 03/14/2017 Venipuncture BLD ? Venpn* ? ? Final [facility] L ab (Internal) : [address] 03/14/2017 Cbc BLD ? Wbc 7.4 5.0-10.0 [facility]*3/uL [facility] L ab (Internal) : [address] t ? ? BLD Low Rbc 4.03 4.60-6.00 Final [place] 10*6/uL 10*6/uL [facility] L ab (Internal) : [address] t ? ? BLD Low Hgb 11.8 14.0-18.0 Final [place] g/dL g/dL [facility] L ab (Internal) : [address] t ? ? BLD Low Hct 35.1 % 41.0-51.0 Final [place] % [facility] L ab (Internal) : [address] ? ? BLD ? Mcv 87.1 fL 80.0-96.0 Final [place] fL [facility] L ab (Internal) : [address] ? ? BLD ? Mch 29.3 pg 26.0-32.0 Final [place] pg [facility] L ab (Internal) [...] Bun 27 mg/dL 9-20 Final [place] mg/dL [facility] L ab (Internal) : [address] ? ? PLASMA ? Crea 1.20 0.66-1.25 Final [place] mg/dL mg/dL [facility] L ab (Internal) : [address] ? ? PLASMA ? Ca 8.8 8.4-10.2 Final [place] mg/dL mg/dL [facility] L ab (Internal) : [address] t ? ? PLASMA ? Na 137 137-145 Final [place] mmol/L mmol/L [facility] L ab (Internal) : [address] ? ? PLASMA ? K 4.5 3.5-5.1 Final [place] mmol/L mmol/L [facility] ab (Internal) : [address] t ? ? PLASMA ? Cl 106 98-107 Final [place] mmol/L mmol/L [facility] L ab (Internal) : [address] t ? ? PLASMA ? Tco2 25.0 22.0-30.0 Final [place] mmol/L mmol/L [facility] L ab (Internal) : [address] 03/14/2017 Troponin I, S ? Trop <0.06 0.00-0.06 Final [place] Serum or Plasma NG/mL NG/mL [facility] L ab (Internal) : [address] 03/13/2017 Venipuncture BLD ? Venpn* ? ? Final [facility] L ab (Internal) : [address] 03/13/2017 Troponin I, PLASMA ? Trop <0.06 0.00-0.06 Final [place] Serum or Plasma NG/mL NG/mL [facility] L ab (Internal) : [address] 03/13/2017 Troponin I, S ? Trop <0.06 0.00-0.06 Final [place] Serum or Plasma NG/mL NG/mL [facility] L ab (Internal) : [address] 03/13/2017 CMP, Serum or S ? g/r 106 74-106 Final [place] Plasma mg/dL mg/dL [facility] L ab (Internal) : [address] t ? ? S High Bun 38 mg/dL 9-20 Final [place] mg/dL [facility] L ab (Internal) : [address] t ? ? S High Crea 2.20 0.66-1.25 Final [place] mg/dL mg/dL [facility] L ab (Internal) : [address] t ? ? S High Ca 10.4 8.4-10.2 Final [place] mg/dL mg/dL [facility] L ab (Internal) : [address] t ? ? S ? Na 142 137-145 Final [place] mmol/L mmol/L [facility] L ab (Internal) : [address] t ? ? S ? K 4.4 3.5-5.1 Final [place] mmol/L mmol/L [facility] L ab (Internal) : [address] t ? ? S ? Cl 100 98-107 Final [place] mmol/L mmol/L [facility] L ab (Internal) : [address] t ? ? S ? Tco2 27.0 22.0-30.0 Final [place] mmol/L mmol/L [facility] L ab (Internal) : [address] t ? ? S High Tp 8.6 g/dL 6.3-8.2 Final [place] g/dL [facility] L ab (Internal) : [address] t ? ? S ? Alb 4.8 g/dL 3.5-5.0 Final [place] g/dL [facility] L ab (Internal) : [address] t ? ? S High Tbil 1.4 0.2-1.3 Final [place] mg/dL mg/dL [facility] L ab (Internal) : [address] t ? ? S ? Alp 85 U/L 38-126 Final [place] U/L [facility] L ab (Internal) : [address] t ? ? S ? Alt 25 U/L 21-72 U/L Final [place] (Sgpt) [facility] L ab (Internal) : [address] t ? ? S ? Ast 32 U/L 17-59 U/L Final [place] (Sgot) [facility] L ab (Internal) : [address] t 03/13/2017 CBC W/ Auto BLD ? Wbc 9.1 5.0-10.0 Final [place] Diff 10*3/uL 10*3/uL [facility] L ab (Internal) : [address] t ? ? BLD ? Rbc 5.06 4.60-6.00 Final [place] 10*6/uL 10*6/uL [facility] L ab (Internal) : [address] t ? ? BLD ? Hgb 14.8 14.0-18.0 Final [place] g/dL g/dL [facility] L ab (Internal) : [address] t ? ? BLD ? Hct 44.0 % 41.0-51.0 Final [facility] Hospital L ab (Internal) : [address] t ? ? BLD ? Mcv 87.0 fL 80.0-96.0 Final [place] fL [facility] L ab (Internal) : [address] t ? ? BLD ? Mch 29.2 pg 26.0-32.0 Final [place] pg [facility] L ab (Internal) : [address] t ? ? BLD ? Mchc 33.6 31.0-35.0 Final [place] g/dL g/dL [facility] L ab (Internal) : [address] t ? ? BLD ? Rdw 13.8 % 11.5-14.5 Final [facility] ab (Internal) : [address], [place] ? ? BLD ? Plt 327 130-450 Final [place] 10*3/uL 10*3/uL [facility] ab (Internal) : [address], [place] ? ? BLD ? Anc 4.74 ? Final [place] 10*3/uL [facility] ab (Internal) : [address], [place] ? ? BLD ? Neutro 52.2 % 40.0-75.0 Final [facility] ab (Internal) : [address], [place] ? ? BLD ? Lymph 35.2 % 20.0-50.0 Final [facility] ab (Internal) : [address], [place] ? ? BLD ? [place] 9.0 % 2.0-10.0 Final [facility] ab (Internal) : [address], [place] ? ? BLD ? Eos 2.6 % 1.0-6.0 % Final [facility] ab (Internal) : [address], [place] ? ? BLD ? Baso 0.7 % 0.0-1.0 % Final [facility] ab (Internal) : [address], [place] ? ? BLD ? Ig 0.3 % 0.0-0.9 % Final [facility] ab (Internal) : [...]
--- NOTE | 2021-09-20 00:08 | DI.VRAD_ITS ---
PROCEDURE INFORMATION: Exam: CT Abdomen And Pelvis Without Contrast Exam date and time: 09/19/2021 11:05 PM Age: 71 years old Clinical indication: Screening exam; Other: Kidney stones; Patient HX: Multiple kidney infections, consider stones TECHNIQUE: Imaging protocol: Computed tomography of the abdomen and pelvis without contrast. COMPARISON: XR PORTABLE CHEST AP 09/19/2021 9:40 PM FINDINGS: Liver: Normal. No mass. Gallbladder and bile ducts: Pericholecystic stranding may reflect artifact related to motion. In the correct clinical setting consider cholecystitis although gallbladder wall thickening and calcified stones are absent. Sonography recommended as needed. Pancreas: Trace stranding noted in the pancreaticoduodenal groove and correlation with pancreatic enzymes recommended to exclude pancreatitis. Spleen: Normal. No splenomegaly. Adrenal glands: Normal. No mass. Kidneys and ureters: Mild left-sided hydronephrosis and hydroureter noted to the level of an obstructing distal left ureteral stone just proximal to the UVJ measuring 3 x 3 mm. Hyperdensities within the urinary bladder may reflect blood products and or bladder calculi. Stomach and bowel: See Intraperitoneal space finding. Appendix: No evidence of appendicitis. Intraperitoneal space: Stranding extends into the proximal left paracolic gutter where diverticuli are present. This may be associated with the left kidney, however descending colonic diverticulitis not excluded in the correct clinical setting. Vasculature: Unremarkable. No abdominal aortic aneurysm. Lymph nodes: Unremarkable. No enlarged lymph nodes. Urinary bladder: See Kidneys and ureters finding. Reproductive: Unremarkable as visualized. Bones/joints: Unremarkable. No acute fracture. Soft tissues: Unremarkable. IMPRESSION: 1. Mild left-sided hydronephrosis and hydroureter noted to the level of an obstructing distal left ureteral stone just proximal to the UVJ measuring 3 x 3 mm. Hyperdensities within the urinary bladder may reflect blood products and or bladder calculi. 2. Pericholecystic stranding may reflect artifact related to motion. In the correct clinical setting consider cholecystitis although gallbladder wall thickening and calcified stones are absent. Sonography recommended as needed. 3. Trace stranding noted in the pancreaticoduodenal groove and correlation with pancreatic enzymes recommended to exclude pancreatitis. 4. Stranding extends into the proximal left paracolic gutter where diverticuli are present. This may be associated with the left kidney, however descending colonic diverticulitis not excluded in the correct clinical setting. Dictated and Authenticated by: Lion Whitmore MD. Ordering:YVETTE Best MD
[2021-09-20 00:22] VITALS: BP 103/72; PULSE 80; RESP 19; TEMP 38; O2SAT 92
[2021-09-20] MEDS: Acetaminophen 325 MG TAB PO (01:11)
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
[2021-09-20 02:19] LABS: Lipase 25 U/L (73-393)
--- NOTE | 2021-09-20 02:23 | NUR.NOTE ---
Nursing Note:Pt will be transferred to [facility] , report given to Angela MENDOZA at approximately [phone]
[2021-09-20] MEDS: Normal Saline 1,000 ML 75 ML IV (03:58)
[2021-09-20 04:02] VITALS: BP 112/68; PULSE 72; RESP 20; TEMP 37.3; O2SAT 99
[2021-09-20 06:25] LABS: Abs Immature Grans 0.07 10^3/uL (0.0-0.06); Absolute Basophil Count 0.05 10^3/uL (0.0-0.2); Absolute Monocyte Count 1.45 10^3/uL (0.1-0.8); Basophils % 0.3; Eosinophils % 0.1; HCT 43.6 % (40.0-50.0); HGB 13.5 g/dL (13.5-17.5); Immature Grans % 0.4; Lymphocytes % 5.8; MCH 27.3 pg (27.0-33.0); MCV 88.3 fL (80-95); MPV 9.6 fL (8.0-11.0); Monocytes % 9.1; Neutrophils % 84.3; Nucleated RBC 0 %; Platelet Count 255 10^3/uL (130-400); RBC 4.94 10^6/uL (4.36-5.78); RDW 16.6 % (11.8-14.1); RDW-SD 53.8 fL; WBC 15.93 10^3/uL (4.4-10.8)
[2021-09-20 06:30] LABS: Absolute Eosinophil Count 0.02 10^3/uL (0.0-0.7); Absolute Lymphocyte Count 0.92 10^3/uL (1.2-3.4); Absolute Neutrophil Count 13.43 10^3/uL (1.2-6.7)
[2021-09-20 06:37] LABS: Anion Gap 7.3 mmol/L (3-11); BUN 17 mg/dL (7-18); CO2 28.7 mmol/L (21.0-32.0); Chloride 105 mmol/L (98-107); Glucose 126 mg/dL (74-106); Magnesium 1.9 mg/dL (1.8-2.4); Potassium 3.5 mmol/L (3.5-5.1); Sodium 141 mmol/L (136-145)
[2021-09-20 07:26] VITALS: BP 113/68; PULSE 68; RESP 16; TEMP 37.3; O2SAT 92
--- NOTE | 2021-09-20 07:46 | PT.INNT ---
PT Notes Visit Reasons: Sepsis Due to UTI PT orders received, however patient was discharged prior to consult.
[2021-09-20 12:40] LABS: Lab Add On Test DONE
[2021-09-21 08:52] LABS: Lab Add On Test Done
== END 2021-09-20 07:28 | disposition short-term general hospital (02) | DRG 871 ==
LOC: ER 23:16 → MS 23:57
PROVIDERS: Admitting Provider Internal Medicine; Emergency Provider Student in an Organized Health Care Education/Training Program; PCP Family Medicine; Visit Provider Internal Medicine
DX: A41.9 Sepsis, unspecified organism (principal); G92.8 Other toxic encephalopathy; N13.6 Pyonephrosis; J98.11 Atelectasis; N13.9 Obstructive and reflux uropathy, unspecified; E87.6 Hypokalemia; G30.9 Alzheimer's disease, unspecified; F02.80 Dementia in other diseases classified elsewhere, unspecified severity, without behavioral disturbance, psychotic disturbance, mood disturbance, and anxiety; F01.50 Vascular dementia, unspecified severity, without behavioral disturbance, psychotic disturbance, mood disturbance, and anxiety; Z86.73 Personal history of transient ischemic attack (TIA), and cerebral infarction without residual deficits; Z66 Do not resuscitate; E11.9 Type 2 diabetes mellitus without complications; Z86.711 Personal history of pulmonary embolism; R26.9 Unspecified abnormalities of gait and mobility; R29.6 Repeated falls; N40.1 Benign prostatic hyperplasia with lower urinary tract symptoms; I25.10 Atherosclerotic heart disease of native coronary artery without angina pectoris; Z95.1 Presence of aortocoronary bypass graft; Z79.01 Long term (current) use of anticoagulants; Z95.2 Presence of prosthetic heart valve; E53.8 Deficiency of other specified B group vitamins; F32.9 Major depressive disorder, single episode, unspecified; E78.00 Pure hypercholesterolemia, unspecified; I11.0 Hypertensive heart disease with heart failure; G43.009 Migraine without aura, not intractable, without status migrainosus; G89.29 Other chronic pain; R94.31 Abnormal electrocardiogram [ECG] [EKG]
CPT/HCPCS: 36415; 80048; 80053; 83690; 84145; 87040; 87077; 87081; 87637; 93005; 96361; 96365; 99285; 70450; 71045; 74176; 81003; 81015; 83605; 83735; 84443; 84484; 85025; 87086; 87186; 93010; 99223; 99239

== ENCOUNTER → 2021-09-21 07:50 | Outpatient (BNVA) | payer MEDICARE, MEDICAID, SELFPAY | PROVIDERS: PCP Family Medicine; Referring Provider Family Medicine; Visit Provider Urology | DX: R69 Illness, unspecified (principal) ==